=== PATIENT | male | born 1945 | race Caucasian/White ===

== ENCOUNTER 2021-11-27 14:15 | Outpatient (CLI) | payer MEDICARE, BC, SELFPAY ==
[2021-11-27 17:37] LABS: Albumin* 4.5 g/dL (3.3-5.0); Chloride* 93 mmol/L (96-114)
[2021-11-27 17:38] LABS: Potassium* 4.3 mmol/L (3.6-5.1); Sodium* 130 mmol/L (135-149)
[2021-11-27 17:40] LABS: Alanine Aminotransferase* 13 U/L (4-50); Alkaline Phosphatase* 135 U/L (40-150); Aspartate Amino Transferase* 22 U/L (12-35); Bilirubin Total* 0.9 mg/dL (0.1-1.5); Blood Urea Nitrogen* 11 mg/dL (7-30); Carbon Dioxide* 28 mmol/L (20-32); Cholesterol* 214 mg/dL (90-199); Creatinine* 0.6 mg/dL (0.5-1.5); Estimated Glomerular Filt Rate 100 ml/min; Glucose* 115 mg/dL (60-115)
[2021-11-27 17:41] LABS: Calcium* 9.6 mg/dL (8.4-10.6); HDL Cholesterol* 68 mg/dL (>=40); LDL Cholesterol Calculated 124 mg/dL (<100); Triglycerides* 108 mg/dL (40-149)
[2021-11-27 18:09] LABS: PSA Screen* 5.28 ng/mL (0.10-4.00)
== END 2021-11-27 14:16 | disposition home or self-care (01) ==
PROVIDERS: PCP Internal Medicine; Visit Provider Internal Medicine
DX: Z00.00 Encounter for general adult medical examination without abnormal findings (principal); I10 Essential (primary) hypertension; E78.5 Hyperlipidemia, unspecified; E66.9 Obesity, unspecified; Z12.5 Encounter for screening for malignant neoplasm of prostate
CPT/HCPCS: 80053; 80061; 84153

== ENCOUNTER 2022-02-11 13:00 | Outpatient (RCR) | payer MEDICARE, BC, SELFPAY ==
--- NOTE | 2022-01-14 15:36 | PT.OPEX ---
[facility] Start: 01/14/22 07:24 Freq: Status: Active Protocol: Document 01/14/22 07:24 MRATÍN (Rec: 01/14/22 15:30 MARTÍN [id number]) E-signed By Tanisha De La Cruz PT Physical Therapy Outpatient Evaluation Insurance Information Recert Due Date 04/10/22 Insurance Name Medicare B,Blue Cross/[employer] Medical Diagnosis Fall Treating Diagnosis Impaired balance, gross LE weakness, antalgic gait, limited hip and lumbar ROM Referring Jono Milton Subjective Subjective Rolando reports PT following fall dated December 09 where he was moving garbage can and tripped and fell on R buttock. He was seen by PCP Dr Ross following this and was given round of Prednisone. He notes this has significantly reduced his pain but occasional mild pain (3/10) localized to R QL region and occasionally L QL as well. Previous fall was January 2021 where again he noted tripping over object. He has previously been very active working out 3-4 times a week using bowflex, free weights, rowing machine and recumbent bike as well as balance/strengthening exercises he was given with previous bout of PT in June 2021 for balance training. He has taken a break from everything since the fall except for the bike which feels quite good to use. He is unsure what he should return to as he does not want to aggravate the back but wants to continue to maintain/ progress balance. He has been focusing more on stretches at this time. Denies N/T distally . Goals are to return to all ADLs and workout routine. PMH: Sacroiliac pain (Acute) Hypertension Hyperlipidemia Chronic obstructive pulmonary disease (Acute) Pain Comments 3/10 R>L QL region Date of Last Physician Visit 12/10/21 Current Work Status Retired Objective Other/Pertinent Objective SL balance: unable without UE support Tandem balance: able to achieve modified tandem and hold ~6 sec each foot forward LE ROM (R/L): -Hip Ext: neutral B -Hip Flx: 100/105 -Hip ER: 35/40 -Hip IR: 5/neutral LE Strength (R/L): -Hip Abd: R: 3+/5, L: 4-/5 -Hip Ext: R: 4/5, L: 4/5 -Hip Flx: R: 4-/5, L: 4-/5 TA activation fair in hooklying Increased tone/TTP B R>L QL Spring testing: - pain Standing posture: flexed hip and wide ALEX Lumbar ROM: -flex patella, pull R>L lumbar -ext neutral -R/L SB more pull on R Functional Test Performed & Score MULLINS/56 5 times sit to stand: 20.6 seconds with 50% reliance on pushing with back of legs on chair to balance Assessment Assessment/Impression Patient is a 76 year old male presenting to physical therapy for evaluation and treatment following fall with report of ongoing mild low back pain. Patient presents with limited hip ROM (flex/ER/IR), impaired postural positioning with flexed hip, proximal hip and core weakness (<4-/5), static balance deficits and reduction in MULLINS balance score from previous bout of PT in June 2021 (from 50 to 45). These impairments are limiting the patients ability to ambulate safely on all surfaces, return to exercise routine. Patient appears motivated to participate in PT and presents with good prognosis to improve mobility, strength, proprioception and return to functional activities with skilled physical therapy intervention. Primary Functional Limitations ambulate safely on all surfaces, return to exercise routine Plan of Care Rehabilitation Potential Good Physical Therapy Goals In 6 weeks (02/25/22) Pt will be able to achieve full tandem stance and hold 10 sec in order to reduce fall risk Pt will report <1/10 low back pain with all ADLs in order to demonstrate functional progress In 12 weeks (04/08/22) Pt will exhibit 8 point improvement in MULLINS Balance score (53/56) to demonstrate functional improvement and reduction in fall risk. Pt will report <1/10 low back pain and at least 4+/5 LE strength in order to return to previous exercise routine Pt will demonstrate SL balance greater than 5 sec in order to reduce fall risk Treatment Plan/Direct Interventions Gait Training,Joint Mobilization,Manual Therapy, Neuromuscular Re-ed,Self-Care/ Home Management,Therapeutic Activities,Therapeutic Exercises Frequency/Duration 1x/wk for 6 weeks with additional 4 session prn based on progress Patient Will Be Discharged From Therapy Completion of LTG(s), Independent w/HEP, Independently Progressing Evaluation Billing Untimed Code Treatment Minutes 28 Complexity Low Certification Information Initial Certification Date 01/14/22 Ending Certification Date 04/10/22 Provider Signature Shows Agreement With POC & Medical Necessity Physician Signature & Date Requested Please Sign/Date Here Physician Comment/Change : Physician NPI Number #
== END 2022-09-03 23:59 | disposition home or self-care (01) ==
PROVIDERS: PCP Internal Medicine; Visit Provider Internal Medicine
DX: R26.9 Unspecified abnormalities of gait and mobility (principal); Z51.89 Encounter for other specified aftercare
CPT/HCPCS: 97110; 97112; 97140; 97161

== ENCOUNTER 2022-06-22 13:58 | Inpatient (IN) | payer MEDICARE, BC, SELFPAY ==
[2022-06-22] VITALS (7 sets, daily range): BP systolic 132–168; BP diastolic 71–89; PULSE 85–101; RESP 14–18; TEMP 36.6–36.9; O2SAT 97–99; BMI 33.2
--- NOTE | 2022-06-22 14:11 | ED_ITS ---
HPI - Abdominal Pain General Time Seen by Provider: 14:11 Date Seen: 06/22/22 Chief Complaint: Abdominal Pain Stated Complaint: Abdominal pain, bowel blockage Time Seen by Provider: 06/22/22 14:03 Source: patient and RN notes reviewed Mode of arrival: ambulatory Limitations: no limitations History of Present Illness HPI narrative: Shobha is a 76 year old male coming into the ER ambulatory accompanied by his for concern of possible bowel obstruction. He states he has been really having to strain to go to the bathroom. Will get some small hard stool when sit ting straining. Denies any difficulty with urination until today, felt like it was more difficult to empty. He is having some lower pelvic discomfort of his abdomen. No fevers chills. His appetite has been fine. He actually ate breakfast but decided to quit eating just because he thought maybe he should. No nausea or vomiting. Notes his mom has had a history of a bowel obstruction. I did review with him that typically bowel obstructions present with decreased oral intake, nausea vomiting. He really can not remember when he last had a normal stool. He does use Metamucil daily and historically he has had bowel movement pretty quickly after breakfast. Again, cannot remember when he last had a normal bowel movement. He is unsure of when he last had a colonoscopy, believes it has been awhile. MD elicited complaint: abdominal pain Pertinent past history: constipation Related Data Home Medications Medication Instructions Recorded Confirmed atorvastatin 10 mg tablet 10 mg PO DAILY 08/13/21 06/22/22 fluticasone propionate 50 2 spray intranasal DAILY 08/13/21 06/22/22 mcg/actuation nasal spray,suspension folic acid 400 mcg tablet 1 mg PO DAILY 08/13/21 06/22/22 multivitamin (Multiple Vitamins 1 tab PO QAM 08/13/21 06/22/22 tablet) omega-3 fatty acids 500 mg capsule 500 mg PO QDAY 08/13/21 06/22/22 vitamin B complex (B 1 tab PO QDAY 08/13/21 06/22/22 Complex-Vitamin B12 tablet) zinc 50 mg tablet 50 mg PO QDAY 08/13/21 06/22/22 budesonide inhalation suspension inhalation 06/17/22 Previous Rx's Medication Instructions Recorded esomeprazole magnesium 40 mg 40 mg PO DAILY GERD #90 caps 01/01/22 capsule,delayed release tamsulosin 0.4 mg capsule 0.4 mg PO QHS BPH #90 caps 01/01/22 hydrochlorothiazide 25 mg tablet 25 mg PO DAILY #90 tabs 06/16/22 nystatin 100,000 unit/mL oral 100,000 unit buccal .TIW Thrush 06/17/22 suspension #250 mL Allergies Allergy/AdvReac Type Severity Reaction Status Date / Time Molds & Smuts Allergy Unknown Uncoded 06/17/22 13:07 Review of Systems Status of ROS Reports: 6 or more systems reviewed and unremarkable except as noted in History and below [facility] Medical History (Updated 06/22/22 @ 18:22 by Cary Baker MD) Knee pain ?M25.569 - Pain in unspecified knee (ICD-10) Allergies ?T78.40XA - Allergy, unspecified, initial encounter (ICD-10) Thrush ?B37.0 - Candidal stomatitis (ICD-10) BPH (benign prostatic hyperplasia) ?N40.0 - Benign prostatic hyperplasia without lower urinary tract symptoms (ICD-10) Sacroiliac pain ?M53.3 - Sacrococcygeal disorders, not elsewhere classified (ICD-10) Family History Father Alcohol dependence Mother No problems noted. Social History Narrative: Marital Status: Occupation: Retired Alcohol Use: Yes (wine daily) Recreational Drug Use: No Smoking Status: Former smoker Do you use any of these nicotine containing products: None Second hand tobacco smoke exposure: No How often do you have a drink containing alcohol: 4 or more times a week How many standard drinks containing alcohol do you have on a typical day: 3 or 4 How often do you have six or more drinks on one occasion: Never AUDIT-C Alcohol total score: 5 Non-prescribed substance use: denies use Exam Const: Vital Signs, click to edit/add: Vital Signs - 24 hr 06/22/22 14:02 06/22/22 17:09 Temperature 98 F Pulse Rate [Right Pulse Oximeter] 85 Respiratory Rate 14 18 Blood Pressure [Ri ght Upper Arm] 165/83 H 168/89 H Pulse Oximetry 99 98 Oxygen Delivery Me thod Room Air Room Air Documenting provider has reviewed patient's vital signs: yes Common normals: no apparent distress, oriented x3, no limitations, healthy appearing, alert and well nourished General appearance: cooperative, comfortable, well kempt and well developed Nutritional appearance: overweight HENMT: Common normals: normocephalic, head/scalp atraumatic, hearing grossly normal bilaterally, external nose normal, nasal mucous membranes and turbinates normal and moist oral mucous membranes Head and scalp: normocephalic and atraumatic Nose: external nose normal and nasal mucous membranes and turbinates normal Eye: Common normals: PERRL, EOMs intact bilaterally, conjunctivae normal and no scleral icterus Conjunctiva: conjunctiva(e) normal Pupil: PERRL Neck & C-Spine: Common normals: full ROM, no lymphadenopathy and supple Resp: Common normals: normal respiratory effort, no retractions, no use of accessory muscles and clear to auscultation bilaterally Auscultation: clear to auscultation bilaterally Cardio: Common normals: regular rate, regular rhythm, S1 normal heart sound, S2 normal heart sound, no gallops, no clicks, no murmurs and no rub Rate: regular rate Rhythm: regular rhythm Heart sounds: S1 normal and S2 normal GI: Common normals: Normal to inspection, nondistended, normoactive bowel sounds present, soft to palpation, no hepatosplenomegaly and no masses Palpation: soft and no hepatosplenomegaly Other: Mild lower abdominal pain, left lower quadrant to suprapubic in nature. Extremity: Common normals: normal to inspection and full ROM Neuro: Common normals: oriented x3 Sensorium/orientation: alert Gait (neuro): normal gait Psych: Appearance: well kempt Course Course Hospital Course: Will initiate bladder scanning and abdominal flat and upright. Patient's exam is not that clinically concerning, would like to see what a flat and upright shows as well as rule out urinary obstruction. May need to consider further laboratory evaluation and advanced imaging. Constipation certainly could be a simple diagnosis, rule out urinary obstruction. Other internal abdominal issues could be such things as an atypical presentation of diverticulitis, other intra- abdominal pathology. Reevaluation(s) Reevaluation #1: Reviewed with Shobha that there is a bit of stool buildup in his colon, does not seem to extend down into the rectum. I am doubtful that any enemas or Enemeez will help him here, stool seems too far up. He was doing some burping while I was in with him. He understands are going to proceed with blood work and a CT scan. Time: 15:06 Reevaluation #2: Apologize to patient that have not been able to get back in, CT came back with diverticulitis. Unfortunately the ERs been quite busy and he did have a critical patient transfer which I did share with them. Patient really is not passing a lot of stool below. Is still passing flatus in maybe some small pieces the stool. He is burping a lot while here though. I do feel inclined to placement hospital overnight for observation, initiate IV antibiotics for diverticulitis. Likewise his white count and C-reactive protein are elevated. Time: 18:19 Consultations Consultation #1: Spoke with hospitalist Dr. Rogers, she is accepting of his care. We will initiate IV Zosyn after discussion with her. Time: 18:21 Vital Signs Vital signs: Initial Vital Signs Temperature 98 F 06/22/22 14:02 Temperature Source Temporal Artery Scan 06/22/22 14:02 Pulse Rate 85 06/22/22 14:02 Pulse Rhythm Regular 06/22/22 14:02 Pulse Strength 3+ Normal 06/22/22 14:02 Respiratory Rate 14 06/22/22 14:02 Blood Pressure 165/83 H 06/22/22 14:02 Blood Pressure Mean 110 H 06/22/22 14:02 Blood Pressure Position Sitting 06/22/22 14:02 Pulse Oximetry 99 06/22/22 14:02 Oxygen Delivery Method Room Air 06/22/22 14:02 Vital Signs Temperature 98 F 06/22/22 14:02 Pulse Rate 85 06/22/22 14:02 Respiratory Rate 14 06/22/22 14:02 Blood Pressure 165/83 H 06/22/22 14:02 Pulse Oximetry 99 06/22/22 14:02 Oxygen Delivery Method Room Air 06/22/22 14:02 Temperature 97.8 F 06/22/22 19:15 Pulse Rate 85 06/22/22 14:02 Respiratory Rate 18 06/22/22 17:09 Blood Pressure 132/74 06/22/22 19:15 Pulse Oximetry 98 06/22/22 17:09 Oxygen Delivery Method Room Air 06/22/22 17:09 MDM - Abdominal Pain Differential Diagnosis Differential diagnosis: Likely abdominal pain, constipation and diverticulitis Lab Data Attestation: I reviewed the patient's lab results. Labs: Lab Results 06/22/22 06/22/22 Range/Units 15:10 16:08 WBC 12.15 H (4.50-11.00) K/uL RBC 4.45 (4.30-5.90) m/uL Hgb 13.5 (13.5-17.5) gm/dL Hct 38.9 (37.0-53.0) % MCV 87 (80-100) fL MCH 30 (26-34) pg MCHC 35 (32-36) gm/dL RDW Coeff of [place] 12.9 (11.5-15.5) % Plt Count 270 (140-440) K/uL Neut % (Auto) 75.5 H (42.0-72.0) % Lymph % (Auto) 10.7 L (20-44) % [place] % (Auto) 12.8 H (0.0-11.0) % Eos % (Auto) 0.6 (0.0-7.0) % Baso % (Auto) 0.2 (0.0-3.0) % Neut # (Auto) 9.20 H (1.7-7.0) K/uL Lymph # (Auto) 1.30 (0.90-2.90) K/uL [place] # (Auto) 1.60 H (0.00-0.90) K/UL Eos # (Auto) 0.10 (0.00-0.50) K/uL Baso # (Auto) 0.00 (0.00-0.30) K/uL Sodium 127 L (135-149) mmol/L Potassium 3.8 (3.6-5.1) mmol/L Chloride 92 L (96-114) mmol/L Carbon Dioxide 30 (20-32) mmol/L BUN 11 (7-30) mg/dL Creatinine 0.5 (0.5-1.5) mg/dL Estimated GFR 105 ml/min Glucose 111 (60-115) mg/dL Lactate 0.5 (0.5-1.9) mmol/L Calcium 8.4 (8.4-10.6) mg/dL Total Bilirubin 1.3 (0.1-1.5) mg/dL AST 19 (12-35) U/L ALT 17 (4-50) U/L Alkaline Phosphatase 92 (40-150) U/L C-Reactive Protein 4.6 H (0.5-1.0) mg/dL Total Protein 7.3 (6.0-8.3) g/dL Albumin 4.0 (3.3-5.0) g/dL Urine Color Yellow (Yellow) Urine Appearance Clear (Clear) Urine pH 6.5 (5.0-8.5) Ur Specific [place] 1.020 (1.000-1.030) Urine Protein Negative (Negative) Urine Glucose (UA) Negative (Negative) Urine Ketones Trace A (Negative) Urine Blood Trace-intact A (Negative) Urine Nitrite Negative (Negative) Urine Bilirubin Negative (Negative) Urine Urobilinogen 0.2 (0.2-1.0) Ur Leukocyte Esterase Negative (Negative) Urine RBC 5-10 A (0-2) Urine WBC 2-5 (0-5) Ur Squamous Epith Cells None (None-Few) Urine Bacteria None (None) Imaging Data Abdominal x-ray: Attestation: I have reviewed the pertinent imaging results. My impression: See stool in the more proximal colon, do not see anything distally. Will await Radiology over-read. Radiologist's impression: Patient: SHOBHA BEARD Facility:?[facility] Patient ID:?[id number] Site Patient ID:?[id number]. Site :?[id number] Study:?XRay Abdomen FLAT/UPRIGHT-06/22/2022 2:35:13 PM Ordering Physician:Eddi Townsend Final Report: Indication: Constipation Technique: Abdomen 2 view, 4 films Comparison: None Findings/Impression: No dilated loops of large or small intestine with a large amount of stool within the colon. Mesh overlies the pelvis. Prominent atherosclerotic calcification in the left upper quadrant. Mild degenerative disc disease lumbar spine. Dictated by Adán Gutierrez MD @ 06/22/2022 3:00:06 PM (Electronic Signature) CT scan - abdomen: Attestation: I have reviewed the pertinent imaging results. Radiologist's impression: Patient: SHOBHA BEARD Facility:?[facility] Patient ID:?[id number] Site Patient ID:?[id number]. Site :?[id number] Study:?CT Abdomen/Pelvis 99CC ISOVUE 370-06/22/2022 4:32:50 PM Ordering Physician:Eddi Townsend Final Report: INDICATION: Abdominal pain. TECHNIQUE: CT abdomen and pelvis acquired with 99 cc Isovue 370 IV contrast. COMPARISON: None. FINDINGS: Lower chest: Unremarkable. Liver: Scattered small calcified granulomas, benign. Small cyst in the left hepatic lobe. No suspicious hepatic lesion. Gallbladder and bile ducts: Possible small layering gallstones or sludge. No biliary ductal dilatation. Pancreas: Unremarkable. No mass or inflammation. Spleen: Multiple small calcified splenic granulomas. Adrenal glands: Unremarkable. No nodules. Kidneys: Unremarkable. No suspicious masses, stones, or hydronephrosis. GI tract and peritoneal space: Small/moderate hiatal hernia. No bowel obstruction. Moderate colonic stool burden with fecalization of distal small bowel contents, compatible slow transit. Colonic diverticulosis and moderate pericolonic fat stranding and colonic wall thickening centered at focally inflamed diverticula in the mid sigmoid colon, consistent with acute diverticulitis. No organized fluid collection or free intraperitoneal air. Vasculature: Abdominal aorta is normal in caliber. Mesenteric arteries are paten t. Lymph nodes: No lymphadenopathy. Pelvis: Mildly enlarged prostate Bones: Mild anterior height loss at L3, age indeterminate but likely chronic. IMPRESSION: Acute sigmoid diverticulitis. No organized fluid collection or free intraperitoneal air. Please note that all CT scans at this facility use dose modulation, iterative reconstruction, and/or weight-based dosing when appropriate to reduce radiation dose to as low as reasonably achievable. Dictated by Kashif Ahuja MD @ 06/22/2022 4:58:35 PM (Electronic Signature) Critical Care Time Critical Care Time Critical Care Time: No Discharge Plan Discharge Clinical Impression: Diverticulitis Patient Disposition: Admitted As Inpatient Condition: Unchanged
--- NOTE | 2022-06-22 14:16 | CRLHL7_ITS ---
For Patients: As a result of the Century Cures Act, medical imaging exams and procedure reports are released immediately into your electronic medical record. You may view this report before your referring provider. If you have questions, please contact your health care provider. Indication: Constipation Technique: Abdomen 2 view, 4 films Comparison: None Findings/Impression: No dilated loops of large or small intestine with a large amount of stool within the colon. Mesh overlies the pelvis. Prominent atherosclerotic calcification in the left upper quadrant. Mild degenerative disc disease lumbar spine. Dictated by Adán Gutierrez MD @ 06/22/2022 3:00:06 PM (Electronically Signed)
--- NOTE | 2022-06-22 14:50 | CRLHL7_ITS ---
For Patients: As a result of the Century Cures Act, medical imaging exams and procedure reports are released immediately into your electronic medical record. You may view this report before your referring provider. If you have questions, please contact your health care provider. INDICATION: Abdominal pain. TECHNIQUE: CT abdomen and pelvis acquired with 99 cc Isovue 370 IV contrast. COMPARISON: None. FINDINGS: Lower chest: Unremarkable. Liver: Scattered small calcified granulomas, benign. Small cyst in the left hepatic lobe. No suspicious hepatic lesion. Gallbladder and bile ducts: Possible small layering gallstones or sludge. No biliary ductal dilatation. Pancreas: Unremarkable. No mass or inflammation. Spleen: Multiple small calcified splenic granulomas. Adrenal glands: Unremarkable. No nodules. Kidneys: Unremarkable. No suspicious masses, stones, or hydronephrosis. GI tract and peritoneal space: Small/moderate hiatal hernia. No bowel obstruction. Moderate colonic stool burden with fecalization of distal small bowel contents, compatible slow transit. Colonic diverticulosis and moderate pericolonic fat stranding and colonic wall thickening centered at focally inflamed diverticula in the mid sigmoid colon, consistent with acute diverticulitis. No organized fluid collection or free intraperitoneal air. Vasculature: Abdominal aorta is normal in caliber. Mesenteric arteries are patent. Lymph nodes: No lymphadenopathy. Pelvis: Mildly enlarged prostate Bones: Mild anterior height loss at L3, age indeterminate but likely chronic. IMPRESSION: Acute sigmoid diverticulitis. No organized fluid collection or free intraperitoneal air. Please note that all CT scans at this facility use dose modulation, iterative reconstruction, and/or weight-based dosing when appropriate to reduce radiation dose to as low as reasonably achievable. Dictated by Kashif Ahuja MD @ 06/22/2022 4:58:35 PM (Electronically Signed)
[2022-06-22 15:16] LABS: Lactate* 0.5 mmol/L (0.5-1.9)
[2022-06-22 15:32] LABS: Chloride* 92 mmol/L (96-114)
[2022-06-22 15:33] LABS: Potassium* 3.8 mmol/L (3.6-5.1); Sodium* 127 mmol/L (135-149)
[2022-06-22 15:35] LABS: Alkaline Phosphatase* 92 U/L (40-150); Aspartate Amino Transferase* 19 U/L (12-35); Bilirubin Total* 1.3 mg/dL (0.1-1.5); Carbon Dioxide* 30 mmol/L (20-32); Creatinine* 0.5 mg/dL (0.5-1.5); Estimated Glomerular Filt Rate 105 ml/min; Total Protein* 7.3 g/dL (6.0-8.3)
[2022-06-22 15:36] LABS: Alanine Aminotransferase* 17 U/L (4-50); Blood Urea Nitrogen* 11 mg/dL (7-30); Calcium* 8.4 mg/dL (8.4-10.6); Glucose* 111 mg/dL (60-115)
[2022-06-22 15:38] LABS: C Reactive Protein* 4.6 mg/dL (0.5-1.0)
[2022-06-22 15:50] LABS: Basophils Percent Auto 0.2 % (0.0-3.0); Eosinophils Percent Auto 0.6 % (0.0-7.0); Hematocrit 38.9 % (37.0-53.0); Hemoglobin* 13.5 gm/dL (13.5-17.5); Immature Granulocytes Pct Auto 0.2 %; Lymphocytes Percent Auto 10.7 % (20-44); Mean Corpuscular HGB Conc 35 gm/dL (32-36); Mean Corpuscular Hemoglobin 30 pg (26-34); Mean Corpuscular Volume 87 fL (80-100); Monocytes Percent Auto 12.8 % (0.0-11.0); Neutrophils Percent Auto 75.5 % (42.0-72.0); Platelet Count* 270 K/uL (140-440); RDW Coefficient of Variation % 12.9 % (11.5-15.5); Red Blood Count 4.45 m/uL (4.30-5.90); White Blood Count* 12.15 K/uL (4.50-11.00)
[2022-06-22 15:52] LABS: Slide Review Reflex No
[2022-06-22 16:25] LABS: Appearance Urine Clear (Clear); Bilirubin Urine Negative (Negative); Blood Urine Trace-intact (Negative); Color Urine Yellow (Yellow); Glucose Urine Negative (Negative); Ketones Urine Trace (Negative); Leukocyte Esterase Urine Negative (Negative); Nitrite Urine Negative (Negative); Protein Urine Negative (Negative); Urobilinogen Urine 0.2 (0.2-1.0); pH Urine 6.5 (5.0-8.5)
[2022-06-22] MEDS: PIPERACILLIN/TAZOBACTAM 3.375 GM in 0.9 % SODIUM CHLORIDE Mini-bag 100 ML IVPB (18:47)
--- NOTE | 2022-06-22 20:37 | PM.IMHP1 ---
Hospitalist- H&P: HPI History of Present Illness Date Seen: 06/22/22 Chief complaint: Abdominal pain, bowel blockage Narrative: Rolando Salazar is a 76 year old male who presented to the emergency room today with his , initially concerned that he may have a bowel obstruction. Over the past 7 days, he is having increasing abdominal pain and difficulty having a BM. He is unsure when his actual last BM was. He has not had nausea or vomiting and was actually eating normally until this morning. His mother has a history of SBOs. No urinary changes. + burping. Last colonoscopy was in [address] Ross, normal with the exception of diverticulosis. ER course and findings: - white blood count of 12 - CT exhibits acute sigmoid diverticulitis without abscess or free air, moderate stool burden - Zosyn initiated in ED - Sodium 127 (was 130 in November 2021) Patient's history reviewed and updated below, PCP is Dr. Ross locally. Notes that he has been drinking less wine than usual over the past few days and denies history of withdrawal. Review of Systems Status of ROS: Reports: 10 or more systems reviewed and unremarkable except as noted in History and below Narrative: - no weight loss or fevers - takes a Tylenol PM nightly for sleep - Right knee pain, currently getting worked up by PCP - nocturia 1-2x/night - no skin changes - chronic cough and sinus symptoms 2/2 postnasal drip, currently working with the [facility] for this. Is on BID Budesonide nasal rinses PFSH [facility] Medical History (Updated 06/22/22 @ 20:54 by Gwen Rogers MD) Chronic cough ?R05.3 - Chronic cough (ICD-10) Kidney calculus (12/10/08) ?N20.0 - Calculus of kidney (ICD-10) Hypertension (12/10/08) ?I10 - Essential (primary) hypertension (ICD-10) Hyperlipidemia (12/10/08) ?E78.5 - Hyperlipidemia, unspecified (ICD-10) Gastroesophageal reflux (12/10/08) ?K21.9 - Gastro-esophageal reflux disease without esophagitis (ICD-10) Dupuytren's contracture of left hand ?M72.0 - Palmar fascial fibromatosis [Dupuytren] (ICD-10) Neuropathy of left ulnar nerve at wrist ?G56.22 - Lesion of ulnar nerve, left upper limb (ICD-10) Obesity with body mass index greater than 30 ?E66.9 - Obesity, unspecified (ICD-10) Laceration of scalp ?S01.01XA - Laceration without foreign body of scalp, initial encounter (ICD-10) Kidney calculus (12/10/08) ?N20.0 - Calculus of kidney (ICD-10) Knee pain ?M25.569 - Pain in unspecified knee (ICD-10) Allergies ?T78.40XA - Allergy, unspecified, initial encounter (ICD-10) Thrush ?B37.0 - Candidal stomatitis (ICD-10) BPH (benign prostatic hyperplasia) ?N40.0 - Benign prostatic hyperplasia without lower urinary tract symptoms (ICD-10) Sacroiliac pain ?M53.3 - Sacrococcygeal disorders, not elsewhere classified (ICD-10) Surgical History (Updated 06/22/22 @ 20:40 by Gwen Rogers MD) S/P trigger finger release (07/31/21) ?Z98.890 - Other specified postprocedural states (ICD-10) Family History Father Alcohol dependence Mother No problems noted. Social History (Updated 06/22/22 @ 20:52 by Gwen Rogers MD) Narrative: Patient is retired and lives with Marky - she would be medical decision maker if needed. Two adult children in [place]. Rolando requests full code status, but never wants to be alive on a machine for any extended period of time. Former smoker, quit in 1985 with an approximate 20 pack year history. Drinks 3-4 glasses of wine per night, no history of EtOH withdrawal. Smoking Status: Former smoker Do you use any of these nicotine containing products: None Second hand tobacco smoke exposure: No How often do you have a drink containing alcohol: 4 or more times a week How many standard drinks containing alcohol do you have on a typical day: 3 or 4 How often do you have six or more drinks on one occasion: Never AUDIT-C Alcohol total score: 5 Non-prescribed substance use: denies use Meds Home Medications and Allergies Home Medications Medication Instructions Recorded Confirmed Type atorvastatin 10 mg tablet 10 mg PO DAILY 08/13/21 06/22/22 History fluticasone propionate 50 2 spray intranasal DAILY 08/13/21 06/22/22 History mcg/actuation nasal spray,suspension folic acid 400 mcg tablet 1 mg PO DAILY 08/13/21 06/22/22 History multivitamin (Multiple Vitamins 1 tab PO QAM 08/13/21 06/22/22 History tablet) omega-3 fatty acids 500 mg capsule 500 mg PO QDAY 08/13/21 06/22/22 History vitamin B complex (B 1 tab PO QDAY 08/13/21 06/22/22 History Complex-Vitamin B12 tablet) zinc 50 mg tablet 50 mg PO QDAY 08/13/21 06/22/22 History budesonide inhalation suspension inhalation 06/17/22 History budesonide 0.5 mg/2 mL suspension 0.25 mg inhalation Q12H 06/22/22 06/22/22 History for nebulization Allergies Allergy/AdvReac Type Severity Reaction Status Date / Time Molds & Smuts Allergy Unknown Uncoded 06/17/22 13:07 Exam Narrative: Exam Narrative: GEN: Alert and oriented, sitting comfortably in bedside chair and nontoxic in appearance HEENT: Normal external ears, EOMIs bilaterally, no scleral icterus CV: RRR, No concerning murmurs R: LCTA bilaterally without concerning wheezing, air movement adequate Ab: Soft, nondistended, tolerates palpation Ext: wwp, trace edema bilateral ankles Skin: No concerning skin lesions or rashes on exposed skin Neuro: No focal deficits, gait not observed Psych: Appropriate Const: Vital Signs, click to edit/add: Vital Signs - 24 hr 06/22/22 14:02 06/22/22 17:09 06/22/22 19:15 Temperature 98 F 97.8 F Pulse Rate [Pulse Oximeter] Pulse Rate [Right Pulse Oximeter] 85 Respiratory Rate 14 18 Blood Pressure [Ri ght Arm] Blood Pressure [Ri ght Upper Arm] 165/83 H 168/89 H 132/74 Pulse Oximetry 99 98 Oxygen Delivery Me thod Room Air Room Air 06/22/22 19:25 Temperature 97.8 F Pulse Rate [Pulse Oximeter] 101 H Pulse Rate [Right Pulse Oximeter] Respiratory Rate 18 Blood Pressure [Ri ght Arm] 141/78 H Blood Pressure [Ri ght Upper Arm] Pulse Oximetry 98 Oxygen Delivery Me thod Room Air Hospitalist - H&P: Result Labs Labs: Short CBC 06/22/22 Range/Units 15:10 WBC 12.15 H (4.50-11.00) K/uL Hgb 13.5 (13.5-17.5) gm/dL Hct 38.9 (37.0-53.0) % Plt Count 270 (140-440) K/uL BMP 06/22/22 15:10 Sodium 127 L Potassium 3.8 Chloride 92 L Carbon Dioxide 30 BUN 11 Creatinine 0.5 Glucose 111 Calcium 8.4 Liver Function 06/22/22 Range/Units 15:10 Total Bilirubin 1.3 (0.1-1.5) mg/dL AST 19 (12-35) U/L ALT 17 (4-50) U/L Alkaline Phosphatase 92 (40-150) U/L Albumin 4.0 (3.3-5.0) g/dL Urine 06/22/22 Range/Units 16:08 Urine Color Yellow (Yellow) Urine Appearance Clear (Clear) Urine pH 6.5 (5.0-8.5) Ur Specific [place] 1.020 (1.000-1.030) Urine Protein Negative (Negative) Urine Glucose (UA) Negative (Negative) Assessment and Plan Assessment and plan (1) Diverticulitis: Problem comment: - Zosyn initiated in ED (06/22), will continue this - clear liquid diet, advance slowly Status: Acute (2) Hyponatremia: Problem comment: - likely related to acute illness, also possibly iatrogenic from HCTZ - low dose NS IV, hold HCTZ, recheck in morning Status: Acute (3) Chronic cough: Problem comment: - with sinusitis, sees Allergy at [place] - currently treating with BID Budesonide sinus rinses Status: Acute (4) Hypertension: Status: Acute (5) Hyperlipidemia: Status: Acute (6) BPH (benign prostatic hyperplasia): Problem comment: - continue Tamsulosin Status: Acute Plan - antibiotics per above - consider change to antihypertensive regimen given hyponatremia - SCDs and ambulation for ppx - advance diet as tolerated - Home with when + GI motility and improved clinical course, likely 1-2 days
[2022-06-22] MEDS: 0.9 % SODIUM CHLORIDE 1000 ml 1,000 ML 125 ML IV (21:13)
[2022-06-22] MEDS: TAMSULOSIN HCL 0.4 MG CAPSULE PO (21:13)
[2022-06-22] MEDS: SODIUM CHLORIDE 0.9 % (FLUSH) 10 ML SYRINGE 5 ML IVF (21:14)
[2022-06-22] MEDS: BUDESONIDE 0.5 MG/2ML NEB 0.25 MG NEB (21:44)
[2022-06-23] MEDS: PIPERACILLIN/TAZOBACTAM 3.375 GM in 0.9 % SODIUM CHLORIDE Mini-bag 100 ML IVPB ×2 (01:25→06:40)
[2022-06-23 03:00] VITALS: BP 109/73; PULSE 84; RESP 16; TEMP 36.9; O2SAT 95
[2022-06-23] MEDS: 0.9 % SODIUM CHLORIDE 1000 ml 1,000 ML 125 ML IV (06:01)
--- NOTE | 2022-06-23 07:03 | PC.NURSE ---
Pt alert and oriented x3. Afebrile. Pt denied pain, SOB, chest pain, and N/V. Pt lung sounds are clear, pt has an intermittent productive cough, cough is managed with home medications, MD aware and approved. Pt has active bowel sounds, is passing gas and eructating. Pt is up SBA with gait belt, voiding, tolerating a liquid?diet. Pt slept intermittently throughout night.?
[2022-06-23 07:18] LABS: Basophils Percent Auto 0.1 % (0.0-3.0); Eosinophils Percent Auto 0.3 % (0.0-7.0); Hematocrit 37.7 % (37.0-53.0); Hemoglobin* 12.8 gm/dL (13.5-17.5); Immature Granulocytes Pct Auto 0.2 %; Lymphocytes Percent Auto 10.5 % (20-44); Mean Corpuscular HGB Conc 34 gm/dL (32-36); Mean Corpuscular Hemoglobin 30 pg (26-34); Mean Corpuscular Volume 88 fL (80-100); Monocytes Percent Auto 13.2 % (0.0-11.0); Neutrophils Percent Auto 75.7 % (42.0-72.0); Platelet Count* 247 K/uL (140-440); Red Blood Count 4.29 m/uL (4.30-5.90); White Blood Count* 12.62 K/uL (4.50-11.00)
[2022-06-23 07:21] LABS: Slide Review Reflex No
[2022-06-23 07:25] VITALS: BP 137/63; PULSE 81; RESP 18; TEMP 36.9; O2SAT 96
[2022-06-23 07:44] LABS: Albumin* 3.5 g/dL (3.3-5.0); Chloride* 96 mmol/L (96-114); Sodium* 130 mmol/L (135-149)
[2022-06-23 07:46] LABS: Creatinine* 0.5 mg/dL (0.5-1.5); Est. Creatinine Clearance* 65.89; Estimated Glomerular Filt Rate 105 ml/min
[2022-06-23 07:47] LABS: Alkaline Phosphatase* 85 U/L (40-150); Aspartate Amino Transferase* 17 U/L (12-35); Bilirubin Total* 1.3 mg/dL (0.1-1.5); Blood Urea Nitrogen* 10 mg/dL (7-30); Carbon Dioxide* 28 mmol/L (20-32); Total Protein* 6.7 g/dL (6.0-8.3)
[2022-06-23 07:48] LABS: Alanine Aminotransferase* 15 U/L (4-50); Glucose* 108 mg/dL (60-115)
[2022-06-23 07:50] LABS: C Reactive Protein* 6.5 mg/dL (0.5-1.0)
[2022-06-23] MEDS: BUDESONIDE 0.5 MG/2ML NEB 0.25 MG NEB (08:58)
[2022-06-23] MEDS: OMEPRAZOLE 20 MG CAPSULE DR 40 MG PO (09:38)
[2022-06-23] MEDS: FLUTICASONE PROPIONATE NASAL 2 SPRAY NOSTRIL-B (09:42)
--- NOTE | 2022-06-23 09:47 | P.DS_ITS ---
DS: Providers Provider Date Seen: 06/23/22 Date of admission: 06/22/22 20:29 Primary care physician: Jono Ross MD Admitting Clinician: Gwen Rogers MD Consults: Nutrition Attending Physician on discharge: Gwen Rogers MD Date of Discharge: 06/23/22 DS: Diagnosis Discharge Diagnosis (1) Diverticulitis: Status: Acute Problem details: - Zosyn initiated in ED (06/22), will discharge home on oral Amoxicillin - clear liquid diet with + return of bowel function on hospital day 1 (2) Hyponatremia: Status: Acute Problem details: - likely related to acute illness/decreased intake + iatrogenic from HCTZ - low dose NS IV, Na back to baseline of 130 on day of discharge - f/u with PCP for medication mgmt (3) Chronic cough: Status: Acute Problem details: - with sinusitis, sees Allergy at [place] - currently treating with BID Budesonide sinus rinses (4) Hypertension: Status: Acute (5) Hyperlipidemia: Status: Acute (6) BPH (benign prostatic hyperplasia): Status: Acute Problem details: - continue Tamsulosin DS: Summary Hospital Course Hospital Course: Pleasant 76-year-old male, admitted to the hospital on 06/22 for diverticulitis. Patient was treated with IV Zosyn and significantly improved, requesting discharge home on hospital day 1. Bowel function returned and patient was seen by computer publisher. On admission, found to have mild hyponatremia (outpatient baseline sodium of 130) - likely combination of acute illness and hydrochlorothiazide. Recommend reviewing antihypertensives with PCP upon hospital discharge follow- up. The rest of patient's comorbidities remained stable per above. Patient was medically appropriate for discharge home with on oral Augmentin 06/23/22. Status at Discharge Functional status at discharge: independent ambulation Overall status at discharge: patient is progressing back to baseline Time Spent with Patient Time attestation: Total time spent providing and/or coordinating discharge services: Time spent: Greater than 30 minutes Specific discharge activities: Medication reconciliation, care coordination with multidisciplinary team, patient Education Exam Narrative: Exam Narrative: GEN: Alert and oriented, nontoxic, sitting comfortably in bedside chair HEENT: EOMIs bilaterally, no scleral icterus CV: RRR, No concerning murmurs R: LCTA bilaterally without concerning wheezing, air movement adequate Abdomen: Soft, nondistended, nontender. Bowel sounds noted in all 4 quadrants and patient tolerates exam well Ext: wwp, no concerning edema Skin: No concerning skin lesions or rashes on exposed skin Neuro: Nonfocal Psych: Appropriate Const: Vital Signs, click to edit/add: Vital Signs - 24 hr 06/22/22 14:02 06/22/22 17:09 06/22/22 19:15 Temperature 98 F 97.8 F Pulse Rate [Pulse Oximeter] Pulse Rate [Right Pulse Oximeter] 85 Respiratory Rate 14 18 Blood Pressure [Ri ght Arm] Blood Pressure [Ri ght Upper Arm] 165/83 H 168/89 H 132/74 Pulse Oximetry 99 98 Oxygen Delivery Me thod Room Air Room Air 06/22/22 19:25 06/22/22 19:48 06/22/22 22:34 Temperature 97.8 F Pulse Rate [Pulse Oximeter] 101 H 101 H Pulse Rate [Right Pulse Oximeter] Respiratory Rate 18 18 18 Blood Pressure [Ri ght Arm] 141/78 H Blood Pressure [Ri ght Upper Arm] Pulse Oximetry 98 98 Oxygen Delivery Me thod Room Air Room Air 06/22/22 22:34 06/22/22 22:55 06/23/22 03:00 Temperature 98.5 F 98.4 F Pulse Rate [Pulse Oximeter] 94 84 Pulse Rate [Right Pulse Oximeter] Respiratory Rate 18 16 16 Blood Pressure [Ri ght Arm] 151/71 H 109/73 Blood Pressure [Ri ght Upper Arm] Pulse Oximetry 98 97 95 Oxygen Delivery Me thod Room Air Room Air Room Air 06/23/22 07:25 06/23/22 07:25 Temperature 98.4 F Pulse Rate [Pulse Oximeter] 81 Pulse Rate [Right Pulse Oximeter] Respiratory Rate 18 18 Blood Pressure [Ri ght Arm] 137/63 Blood Pressure [Ri ght Upper Arm] Pulse Oximetry 96 96 Oxygen Delivery Me thod Room Air Room Air DS: Data Data Completed and Pending Labs on day of discharge: Labs from last 24 hours 06/23/22 06/22/22 06/22/22 05:45 16:08 15:10 WBC 12.62 H 12.15 H RBC 4.29 L 4.45 Hgb 12.8 L 13.5 Hct 37.7 38.9 MCV 88 87 MCH 30 30 MCHC 34 35 RDW Coeff of [place] 13.0 12.9 Plt Count 247 270 Neut % (Auto) 75.7 H 75.5 H Lymph % (Auto) 10.5 L 10.7 L [place] % (Auto) 13.2 H 12.8 H Eos % (Auto) 0.3 0.6 Baso % (Auto) 0.1 0.2 Neut # (Auto) 9.60 H 9.20 H Lymph # (Auto) 1.30 1.30 [place] # (Auto) 1.70 H 1.60 H Eos # (Auto) 0.00 0.10 Baso # (Auto) 0.00 0.00 Sodium 130 L 127 L Potassium 4.0 3.8 Chloride 96 92 L Carbon Dioxide 28 30 BUN 10 11 Creatinine 0.5 0.5 Estimated Creat Clear 65.89 Estimated GFR 105 105 Glucose 108 111 Lactate 0.5 Calcium 8.0 L 8.4 Total Bilirubin 1.3 1.3 AST 17 19 ALT 15 17 Alkaline Phosphatase 85 92 C-Reactive Protein 6.5 H 4.6 H Total Protein 6.7 7.3 Albumin 3.5 4.0 Urine Color Yellow Urine Appearance Clear Urine pH 6.5 Ur Specific [place] 1.020 Urine Protein Negative Urine Glucose (UA) Negative Urine Ketones Trace A Urine Blood Trace-intact A Urine Nitrite Negative Urine Bilirubin Negative Urine Urobilinogen 0.2 Ur Leukocyte Esterase Negative Urine RBC 5-10 A Urine WBC 2-5 Ur Squamous Epith Cells None Urine Bacteria None Discharge Plan Discharge Disposition: Home, Self-Care Date of Admission: 06/22/22 20:29 Attending Provider on Discharge: Gwen Rogers Primary Care Provider: Jono Ross Condition: Improved Anticipated Discharge Date/Time: 06/23/22 09:40 Discharge Medications: New amoxicillin-pot clavulanate 875-125 mg tablet 1 tab PO BID Qty: 14 0RF Continued fluticasone propionate 50 mcg/actuation spray,suspension 2 spray intranasal DAILY vitamin B complex [B Complex-Vitamin B12] Tablet 1 tab PO QDAY omega-3 fatty acids 500 mg capsule 500 mg PO QDAY zinc 50 mg tablet 50 mg PO QDAY multivitamin [Multiple Vitamins] Tablet 1 tab PO QAM atorvastatin 10 mg tablet 10 mg PO DAILY folic acid 400 mcg tablet 1 mg PO DAILY budesonide 0.5 mg/2 mL suspension for nebulization 0.25 mg irrigation Q12H Patient Comments: using as a nasal rinse BID diphenhydramine-acetaminophen [Tylenol PM Extra Strength] 25-500 mg tablet 1 tab PO QHS PRN esomeprazole magnesium 40 mg capsule,delayed release(DR/EC) 40 mg PO DAILY Qty: 90 3RF tamsulosin 0.4 mg capsule 0.4 mg PO QHS Qty: 90 3RF hydrochlorothiazide 25 mg tablet 25 mg PO DAILY Qty: 90 1RF Discontinued nystatin 100,000 unit/mL suspension 5 ml PO QID Discharge Orders: Discharge Order (Routine); Ordered 06/23/22 Ordered By: Gwen Rogers Patient Education: Diverticulitis (DC) Additional Instructions: Antibiotics at [facility] - you should start those this morning and take twice/day with food. Add in a probiotic daily (yogurt, sauerkraut, kombucha, etc). See Dr. Ross as scheduled in followup. Activity Level: Activity as Tolerated Discharge Diet: Regular Follow Up Appointments: Jono Ross MD [Primary Care Provider] - (5-7 days for hospital discharge f/u for diverticulitis + med check, hyponatremia.) Forms: [facility] Info Instructions
--- NOTE | 2022-06-23 10:10 | NUTR.NU ---
GAMALIEL with MD consult for diverticulitis. RDN visited with patient and (Marky, designated caregiver) whom reported a good diet at home. He eats whole grain bread and a lot of fruits and vegetables, coffee, and 3-4 glasses of wine at night. Patient and agreed to diet education. Patient was provided diet education on a low fiber diet. Discussed foods to include and foods to avoid until MD recommends advancing to high fiber diet. Education also provided on gradually increasing fiber and following a high fiber diet (25-35 grams/day) long-term.?Verbal and written information as well as sample menus provided on both diets from AND NCM.?Patient verbalized understanding.?RDN's contact information was provided and patient was encouraged to contact RDN with questions.
[2022-06-23 10:14] VITALS: RESP 18; TEMP 36.9
--- NOTE | 2022-06-23 13:44 | PC.NURSE ---
shift note: pt up with sba for transfers. IV x2 removed intact (lt AC and Rt hand). Pt denies pain. Pt has hyperactive BS x4. pt states he passed loose moderate BM. pt tolerating clrs and yogurt. vss stable. pt afeb. Reviewed dc instructions and copies sent with pt at dc. Belongings sent with pt at dc.
== END 2022-06-23 11:00 | disposition home or self-care (01) | DRG 392 ==
LOC: ED 18:22 → MEDSURG 18:39
PROVIDERS: Admitting Provider Family Medicine; Emergency Provider Family Medicine; PCP Internal Medicine; Visit Provider Family Medicine
DX: K57.32 Diverticulitis of large intestine without perforation or abscess without bleeding (principal); E87.1 Hypo-osmolality and hyponatremia; N40.0 Benign prostatic hyperplasia without lower urinary tract symptoms; M25.561 Pain in right knee; K21.9 Gastro-esophageal reflux disease without esophagitis; I10 Essential (primary) hypertension; E66.9 Obesity, unspecified; Z68.33 Body mass index [BMI] 33.0-33.9, adult; M53.3 Sacrococcygeal disorders, not elsewhere classified; E78.5 Hyperlipidemia, unspecified; R05.3 Chronic cough
CPT/HCPCS: 36415; 74019; 74177; 80053; 81001; 83605; 85025; 86140; 94640; 97116; 97162; 99284; 99285; A9270; J2543; J7030; J7626; Q9967

== ENCOUNTER 2022-11-17 14:00 | Outpatient (CLI) | payer MEDICARE, BC, SELFPAY | END 2022-11-17 14:01 | disposition home or self-care (01) | PROVIDERS: PCP Internal Medicine; Visit Provider Internal Medicine | DX: R63.4 Abnormal weight loss (principal) | CPT/HCPCS: 80053; 84153; 84443 ==

== ENCOUNTER 2022-11-26 13:05 | Outpatient (CLI) | payer MEDICARE, BC, SELFPAY | END 2022-11-26 13:06 | disposition home or self-care (01) | LOC: NFLDREF 11-30 08:04 | PROVIDERS: PCP Internal Medicine; Referring Provider Internal Medicine | DX: Z00.00 Encounter for general adult medical examination without abnormal findings (principal); E78.5 Hyperlipidemia, unspecified; R63.4 Abnormal weight loss | CPT/HCPCS: 99001 ==

== ENCOUNTER 2022-12-07 11:15 | Outpatient (RCR) | payer MEDICARE, BC, SELFPAY ==
--- NOTE | 2022-11-09 21:23 | PT.OPEX ---
PT [place] Outpatient Eval PT [facility] Outpatient Eval Start: 11/09/22 13:02 Freq: Status: Active Protocol: Document 11/09/22 13:02 AMS (Rec: 11/09/22 17:44 AMS [id number]) E-signed By Jane Heredia PT Physical Therapy Outpatient Evaluation Insurance Information Recert Due Date 02/02/23 Insurance Name Medicare B,Blue Cross/[employer] Medical Diagnosis Right degenerative meniscal tear Right knee pain Bilateral knee arthritis Treating Diagnosis Right/left knee pain Impaired gait Muscle weakness Impaired balance Referring MD Dr. Jono Ross Subjective Subjective Tadeo is a new patient in my office today. He is a pleasant 76yr old male. Previous Dr. Ballard patient. Referred to me by Dr. Ross. Presents with bilateral knee pain. Presents with a cane today for ambulation assistance. Presents with his today. He states he is having pain in both knees. The pain is of the anterior knee. The left knee feels exactly like the right knee. He is hopefully for arthroscopic surgery today . The pain is a dull ache that is constant with intermittent sharp pains. The pain is worse with running, prolonged walking, stairs. The patient has tried ice, Tylenol/oral NSAIDs, rest, activity modification, cane for ambulation assistance all with minimal and non-lasting relief. He received a cortisone injection on 2022. -Dr. Paula, 07/28/22 Pt reports with , Marky, to physical therapy with chronic history of right > left anterior knee pain. This started years ago without any known injury and came on gradually. Imaging showed degenerative meniscal tear on right and bilateral knee arthritis. He received a second cortisone injection bilaterally on 10/14/22, which was helpful for the right knee pain especially, but not entirely resolving his symptoms. He localizes the pain to the bilateral anterior knees, describing it as sharp at times on stairs, otherwise dull ache. Functional limitations/aggravating factors include prolonged walking, going upstairs > downstairs, and lifting. He has been an avid weightlifter and runner most of his life. He has lost weight over the last year, which has helped the symptoms. Prior to the injection, he was having pain with sitting, too. Easing factors include laying down and taking hot showers. Current exercise includes rowing machine, Boflex machine occasionally, and recumbent bike 1-2x/week 20 minutes. Previously, he was doing recumbent bike 5x/week for 60- 75 minutes and walking 5-15 miles per day. He has stopped doing this since a few months ago, as he wasn't sure what was recommended, and he no longer strength trains. Does have a [facility]. Goals: performing stairs without pain, walking on uneven terrain/mowing lawn, walking longer distances, steering his snowblower, and improving strength. Usually walks with a cane for balance when outside the house, although did not bring it today. He is concerned of falling, although has not had any falls in last 12 months. Denies numbness or tingling. He does not describe any catching or locking. No swelling that he has noticed. Pain Comments 4/10 at worst, 1/10 current in bilateral anterior knee Date of Last Physician Visit 10/14/22 Current Work Status Retired Preferred Name Rolando Precautions Treatment Precautions/Contraindications Hypertension, hyperlipidemia Objective Other/Pertinent Objective IMAGING ON RIGHT: Minimal degenerative fraying/ tearing involving the undersurface of the posterior horn medial meniscus with mild ill-defined degenerative fraying/tearing involving the junction of the posterior horn and posterior root lateral meniscus -Dr. Paula, . MRI from 06/26/22 GAIT ASSESSMENT: Ambulates with widened ALEX, non-antalgic gait with shuffling nature due to lack of heel strike. Mild to moderate postural sway . No gait aid OBSERVATION: Swelling: None noted FUNCTIONAL MOBILITY Double leg squat: To 70 deg, no increase in pain 30-sec STS: 7 BALANCE Narrow stance: 10+ seconds Narrow stance EC: 10+ sec, mild postural sway Semi-tandem stance: 10 seconds B, mild to moderate postural sway Tandem stance: Unable B SL Stance: Unable B KNEE ROM R: 0-0-130*, mild pain end range flexion L: 0-0-130 HIP ROM All WFL, except 0 deg of hip extension B due to tight hip flexors LLE MMT: Hip flexion: R 5/5 L 5/5 Hip abduction: Unable to isolate due to lack of hip extension ROM Hip extension: Able to perform DL bridge w/ increased effort Knee flexion: R 5/5 L 5/5 Knee extension: R 5/5 L 5/5 END RANGE QUAD CONTROL Straight leg raise: No quad lag SPECIAL TESTS Knee Ligamentous: -Varus 0: - -Varus 30: - -Valgus 0: - -Valgus 30: - -Lachmans: - Knee Meniscus: -Deep Knee Bend: + right -Knee Hyperextension: - -Girish?s: - -Joint Line Palpation: + right and left, more pain on right JOINT MOBILITY/PALPATION Mild TTP over medial joint line right > left, no other TTP TX: Patient was educated on anatomy, physiology as it relates to current condition and HEP with use of handout/ [employer] [place]. Patient verbalizes understanding and agrees with POC/goals. Recommended graded return to walking per soreness guidelines Patient was instructed in the following exercises to improve strength, tissue tolerance, and/or mobility: Access Code: [email or web address] URL: [email or web address] Date: 11/09/2022 Prepared by: Jane Heredia Exercises - Supine Bridge - 1 x daily - 4 x weekly - 2 sets - 10 reps - Standing Romberg to 1/2 Tandem Stance - 1 x daily - 7 x weekly - 3 sets - 30-60 seconds hold - Sit to Stand Without Arm Support - 1 x daily - 4 x weekly - 2 sets - 8 reps -Also trialed step ups on 6 stair x 10 B, requires railing for safety -Instructed in standing and supine hip flexor stretch, although limited by low back pain Functional Test Performed & Score LEFS: pt taking home and will complete Assessment Assessment/Impression Pt is a 76 -year-old male who presents with concerns of chronic right > left knee pain and low severity and irritability. Signs and symptoms are likely indicating / consistent with osteoarthritis/degenerative medial meniscus tear on right per imaging. On exam, patient also demonstrates notable objective findings including full knee ROM, pain with end- range flexion on right, limited hip extension ROM due to increased hip flexor tone bilaterally, impaired balance, pain with medial joint line palpation, and decreased hip/ quad strength, leading to difficulties with walking longer distances, standing, running, performing stairs (up > down), and lifting. Per 30 sec STS, pt demonstrates decreased lower extremity strength bilaterally and is at increased fall risk. Recommended pt utilize cane for improved balance and gait stability. Patient is appropriate for skilled physical therapy services to address the above deficits. Pt was agreeable with plan of care and goals established. Primary Functional Limitations walking longer distances, standing, running, performing stairs (up> down), and lifting . Plan of Care Rehabilitation Potential Good Physical Therapy Goals In 2 sessions: Pt will be independent with HEP for improved self- management of symptoms. In 8 sessions: Pt will demonstrate <2/10 pain with all activities for improved functional mobility/ ability to perform ADLs without pain. Pt will return to walking >3 miles with <2/10 knee pain. Pt will improve 30 sec STS by 4 repetitions for improved lower extremity strength and decreased fall risk. Coordination/Communication With Referral Source Treatment Plan/Direct Interventions Electrical Stimulation,Gait Training,Joint Mobilization, Manual Therapy,Neuromuscular Re-ed,Self-Care/Home Management,Therapeutic Activities,Therapeutic Exercises Frequency/Duration 1x/week for 8 weeks Patient Will Be Discharged From Therapy Completion of LTG(s), Independent w/HEP, Independently Progressing Evaluation Billing Untimed Code Treatment Minutes 30 Complexity Moderate Certification Information Initial Certification Date 11/09/22 Ending Certification Date 02/02/23 Provider Signature Shows Agreement With POC & Medical Necessity Physician Signature & Date Requested Please Sign/Date Here Physician Comment/Change : Physician NPI Number #
== END 2023-02-22 12:34 | disposition home or self-care (01) ==
PROVIDERS: PCP Internal Medicine; Visit Provider Internal Medicine
DX: M17.0 Bilateral primary osteoarthritis of knee (principal); M23.306 Other meniscus derangements, unspecified meniscus, right knee; M25.561 Pain in right knee; M25.562 Pain in left knee; R26.81 Unsteadiness on feet; R26.9 Unspecified abnormalities of gait and mobility; M62.81 Muscle weakness (generalized); Z51.89 Encounter for other specified aftercare
CPT/HCPCS: 80061; 97110; 97112; 97162

== ENCOUNTER 2023-01-15 12:37 | Outpatient (CLI) | payer MEDICARE, BC, SELFPAY ==
--- NOTE | 2023-01-15 13:51 | W.ANESCHARGE ---
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
--- NOTE | 2023-01-15 14:48 | P.ANES_ITS ---
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
== END 2023-01-15 12:38 | disposition home or self-care (01) ==
LOC: OP CLINIC 12:37
PROVIDERS: PCP Internal Medicine; Visit Provider Internal Medicine
DX: R19.8 Other specified symptoms and signs involving the digestive system and abdomen (principal); K21.9 Gastro-esophageal reflux disease without esophagitis; K57.30 Diverticulosis of large intestine without perforation or abscess without bleeding; K64.4 Residual hemorrhoidal skin tags; K64.8 Other hemorrhoids; K63.5 Polyp of colon; K92.1 Melena
CPT/HCPCS: 00813; 43239; 45380; 88305; 99100; J2704; J3490

== ENCOUNTER 2023-03-12 09:32 | Emergency (ER) | payer MEDICARE, BC, SELFPAY ==
[2023-03-12 09:36] VITALS: BP 150/81; PULSE 103; RESP 18; TEMP 37; O2SAT 96; BMI 27.8
--- NOTE | 2023-03-12 09:45 | ED_ITS ---
HPI - General Adult General Time Seen by Provider: 09:45 Date Seen: 03/12/23 Chief complaint: Constipation Stated complaint: hurts to have a bowel movement Time Seen by Provider: 03/12/23 09:45 Source: patient and RN notes reviewed Mode of arrival: ambulatory Limitations: no limitations History of Present Illness HPI narrative: This 77-year-old male his ambulatory into the ED with complaint of pain today. He attempted to have a bowel movement and was having pain. He had a colonoscopy about 5 weeks ago, states it was normal. He admits that he has stools that go between soft not necessarily formed, would not say there were diarrheal though. Have times where he can go. He has been using both MiraLax and Imodium at home. He is burping a lot, he and his states this is not new, this is been going on for ages per his . He sometimes will have fecal incontinence, is wearing depends. He relays to me that his bowel changes with the fecal incontinence, them sometimes being softer are problematic for him. He denies any fevers or chills. Have reviewed Dr. Ross's note from December of 2022 with complaint of stool changes. Have reviewed his colonoscopy which was done 01/15/2023, showed hemorrhoids on perianal exam, he did have a 2 mm polyp and diverticuli. This polyp was found to be a tubular adenoma without dysplasia. Related Data Home Medications Medication Instructions Recorded Confirmed folic acid 400 mcg tablet 1 mg PO DAILY 08/13/21 01/05/23 multivitamin (Multiple Vitamins 1 tab PO QAM 08/13/21 01/05/23 tablet) omega-3 fatty acids 500 mg capsule 500 mg PO QDAY 08/13/21 01/05/23 vitamin B complex (B 1 tab PO QDAY 08/13/21 01/05/23 Complex-Vitamin B12 tablet) zinc 50 mg tablet 50 mg PO QDAY 08/13/21 01/05/23 budesonide 0.5 mg/2 mL suspension 0.25 mg irrigation Q12H 06/22/22 01/05/23 for nebulization diphenhydramine 25 1 tab PO QHS PRN 06/23/22 01/05/23 mg-acetaminophen 500 mg tablet (Tylenol PM Extra Strength) fluticasone propionate 50 2 spray intranasal DAILY PRN 07/28/22 01/05/23 mcg/actuation nasal spray,suspension Previous Rx's Medication Instructions Recorded atorvastatin 10 mg tablet 10 mg PO DAILY Hyperlipidemia #90 12/09/22 tabs esomeprazole magnesium 40 mg 40 mg PO DAILY GERD #90 caps 12/09/22 capsule,delayed release hydrochlorothiazide 25 mg tablet 25 mg PO DAILY #90 tabs 12/09/22 tamsulosin 0.4 mg capsule 0.4 mg PO QHS BPH #90 caps 12/09/22 hydrocortisone 2.5 % topical cream 1 applic topical QDAY Rash #30 12/29/22 grams peg 3350-electrolytes 236 240 ml PO ONCE #4,000 mL 01/12/23 gram-22.74 gram-6.74 gram-5.86 gram solution (Golytely) Allergies Allergy/AdvReac Type Severity Reaction Status Date / Time Molds & Smuts Allergy Unknown Uncoded 01/05/23 15:05 Review of Systems Narrative: As per HPI. [facility] Medical History Change in bowel function ?R19.8 - Other specified symptoms and signs involving the digestive system and abdomen (ICD-10) Rash ?R21 - Rash and other nonspecific skin eruption (ICD-10) Hyperlipidemia (12/10/08) ?E78.5 - Hyperlipidemia, unspecified (ICD-10) Weight decrease ?R63.4 - Abnormal weight loss (ICD-10) Diverticulitis ?K57.92 - Diverticulitis of intestine, part unspecified, without perforation or abscess without bleeding (ICD-10) Acute meniscal tear of knee ?S83.209A - Unspecified tear of unspecified meniscus, current injury, unspecified knee, initial encounter (ICD-10) Chronic cough ?R05.3 - Chronic cough (ICD-10) Kidney calculus (12/10/08) ?N20.0 - Calculus of kidney (ICD-10) Hypertension (12/10/08) ?I10 - Essential (primary) hypertension (ICD-10) Gastroesophageal reflux (12/10/08) ?K21.9 - Gastro-esophageal reflux disease without esophagitis (ICD-10) Dupuytren's contracture of left hand ?M72.0 - Palmar fascial fibromatosis [Dupuytren] (ICD-10) Neuropathy of left ulnar nerve at wrist ?G56.22 - Lesion of ulnar nerve, left upper limb (ICD-10) Obesity with body mass index greater than 30 ?E66.9 - Obesity, unspecified (ICD-10) Laceration of scalp ?S01.01XA - Laceration without foreign body of scalp, initial encounter (ICD- 10) Kidney calculus (12/10/08) ?N20.0 - Calculus of kidney (ICD-10) Knee pain ?M25.569 - Pain in unspecified knee (ICD-10) Allergies ?T78.40XA - Allergy, unspecified, initial encounter (ICD-10) Thrush ?B37.0 - Candidal stomatitis (ICD-10) BPH (benign prostatic hyperplasia) ?N40.0 - Benign prostatic hyperplasia without lower urinary tract symptoms (ICD-10) Sacroiliac pain ?M53.3 - Sacrococcygeal disorders, not elsewhere classified (ICD-10) Surgical History History of ear surgery (~1970) ?Z98.890 - Other specified postprocedural states (ICD-10) H/O cataract extraction ?Z98.49 - Cataract extraction status, unspecified eye (ICD-10) Status post bilateral hernia repair ?Z98.890 - Other specified postprocedural states (ICD-10) ?Z87.19 - Personal history of other diseases of the digestive system (ICD-10) S/P trigger finger release (07/31/21) ?Z98.890 - Other specified postprocedural states (ICD-10) Family History Father Alcohol dependence Mother No problems noted. Social History Narrative: Patient is retired and lives with Marky - she would be medical decision maker if needed. Two adult children in [place]. Shobha requests full code status, but never wants to be alive on a machine for any extended period of time. Former smoker, quit in 1985 with an approximate 20 pack year history. Drinks 3-4 glasses of wine per night, no history of EtOH withdrawal. Smoking Status: Former smoker Do you use any of these nicotine containing products: None Second hand tobacco smoke exposure: No How often do you have a drink containing alcohol: 4 or more times a week Alcohol type: wine How many standard drinks containing alcohol do you have on a typical day: 3 or 4 How often do you have six or more drinks on one occasion: Never AUDIT-C Alcohol total score: 5 Non-prescribed substance use: denies use Caffeine: Yes Little interest or pleasure in doing things: not at all Feeling down, depressed, or hopeless: not at all service: No Exam Const: Vital Signs, click to edit/add: Vital Signs - 24 hr 03/12/23 09:36 Temperature 98.6 F Pulse Rate [Pulse Oximeter] 103 H Respiratory Rate 18 Blood Pressure [Ri ght Upper Arm] 150/81 H Pulse Oximetry 96 Oxygen Delivery Me thod Room Air Shobha is a 77-year-old male that is alert, interactive, no apparent distress. He does have a lot of burping noted. Sclera clear, conjugate gaze, symmetrical facial function, speech normal. Neck is supple, no masses. Lungs are clear, good air entry, no wheezing or crackles. CV regular rate and rhythm, no significant murmur, normal S1-S2, no S3-S4. Abdomen is flat, not distended, does have pretty active bowel sounds but has no palpable organomegaly, no rebound or guarding, no masses noted. He has stool smearing in the buttocks, do not see any significant thrombosed hemorrhoids, no tender areas externally. See no bleeding. The stool is green to brownish. Documenting provider has reviewed patient's vital signs: yes Course Course ED Course: Will start on a flat and upright with this patient to see is stool burden. Have reviewed with he and his that if he is having softer stools, irregular stool habits, this is probably not something that I am going to be able to fix out of the ED. They are wondering about gastroenterology, reviewed with them that they would need to get the referral from his primary. We can check to make sure he does not have any obstructive bowel changes, any significant constipation with stool burden on his imaging. Also will get some baseline labs, his last chemistries in [facility] were in November 2022. Will make sure his electrolytes are not significantly off. Have reviewed with them that Imodium will help with diarrhea, do not recommend that he be taking this at this point. Reevaluation(s) Time of Reevaluation #1: 10:47 Reevaluation #1: Have reviewed with patient that on my preliminary review of his x-ray do see stool burden but I do not see any evidence of obstruction. Were going to give him an Enemeez Plus here, see if that will help him. Time of Reevaluation #2: 11:25 Reevaluation #2: Patient is requesting discharge to be able to defecate at home. Will get his discharge ready, try to get him own as quickly as possible. Vital Signs Vital signs: Initial Vital Signs Temperature 98.6 F 03/12/23 09:36 Temperature Source Temporal Artery Scan 03/12/23 09:36 Pulse Rate 103 H 03/12/23 09:36 Respiratory Rate 18 03/12/23 09:36 Blood Pressure 150/81 H 03/12/23 09:36 Blood Pressure Mean 104 03/12/23 09:36 Blood Pressure Position Supine 03/12/23 09:36 Pulse Oximetry 96 03/12/23 09:36 Oxygen Delivery Method Room Air 03/12/23 09:36 Vital Signs Temperature 98.6 F 03/12/23 09:36 Pulse Rate 103 H 03/12/23 09:36 Respiratory Rate 18 03/12/23 09:36 Blood Pressure 150/81 H 03/12/23 09:36 Pulse Oximetry 96 03/12/23 09:36 Oxygen Delivery Method Room Air 03/12/23 09:36 Temperature 98.6 F 03/12/23 09:36 Pulse Rate 103 H 03/12/23 09:36 Respiratory Rate 18 03/12/23 09:36 Blood Pressure 150/81 H 03/12/23 09:36 Pulse Oximetry 96 03/12/23 09:36 Oxygen Delivery Method Room Air 03/12/23 09:36 Medications Administered Medications: Generic Name Dose Route Start Last Admin Trade Name Freq PRN Reason Stop Dose Admin Lidocaine HCl 6 ml 03/12/23 10:50 03/12/23 10:55 Lidocaine Hcl 2 % Jelly (Top) Sterile UR 6 ml ONCE PRN Administration Discontinued Medications Generic Name Dose Route Start Last Admin Trade Name Freq PRN Reason Stop Dose Admin Docusate Sodium/Benzocaine 5 ml 03/12/23 10:46 03/12/23 10:55 Docusate Sodium/Benzocaine 5 Ml Enema AR 03/12/23 10:47 5 ml ONCE ONE Administration Medical Decision Making Lab Data Lab results reviewed: Yes I reviewed the patient's lab results Labs: Lab Results 03/12/23 Range/Units 10:06 WBC 5.91 (4.50-11.00) K/uL RBC 4.51 (4.30-5.90) m/uL Hgb 13.7 (13.5-17.5) gm/dL Hct 40.7 (37.0-53.0) % MCV 90 (80-100) fL MCH 30 (26-34) pg MCHC 34 (32-36) gm/dL RDW Coeff of Rfanklin 12.9 (11.5-15.5) % Plt Count 278 (140-440) K/uL Neut % (Auto) 66.4 (42.0-72.0) % Lymph % (Auto) 19.5 L (20-44) % [place] % (Auto) 11.8 H (0.0-11.0) % Eos % (Auto) 1.9 (0.0-7.0) % Baso % (Auto) 0.2 (0.0-3.0) % Neut # (Auto) 3.93 (1.7-7.0) K/uL Lymph # (Auto) 1.20 (0.90-2.90) K/uL [place] # (Auto) 0.70 (0.00-0.90) K/UL Eos # (Auto) 0.11 (0.00-0.50) K/uL Baso # (Auto) 0.01 (0.00-0.30) K/uL Abs Immat Gran (auto) 0.01 (0.00-0.30) K/uL Imm/Tot Granulo (auto) 0.2 % Sodium 135 (135-149) mmol/L Potassium 4.1 (3.6-5.1) mmol/L Chloride 101 (96-114) mmol/L Carbon Dioxide 28 (20-32) mmol/L Anion Gap 6 L (7-15) mEq/L BUN 11 (7-30) mg/dL Creatinine 0.6 (0.5-1.5) mg/dL Estimated Creat Clear 64.84 Estimated GFR 99 ml/min Glucose 100 (60-115) mg/dL Calcium 8.9 (8.4-10.6) mg/dL Imaging Data Abdominal x-ray: Attestation: I have reviewed the pertinent imaging results. My impression: As above, see significant stool within the colon but not down to the rectum. Do not see any obstructive changes on my preliminary review. Radiologist's impression: Patient: SHOBHA BEARD Facility:?[facility] Patient ID:?[id number] Site Patient ID:?[id number]. Site :?[id number] Study:?XRay Abdomen FLAT /UPRIGHT 2V-03/12/2023 10:31:42 AM Ordering Physician:?Olivia Townsend Final Report: Indication: Abdomen pain. Technique: Abdomen 2 view. Comparison: None. Findings: Bowel: Bowel gas pattern is nonobstructive. Moderate/large colonic stool burden. No abnormally dilated small bowel loops. Other: No sign of free air. No sign of soft tissue mass. No suspicious calcifications. Osseous structures are unremarkable for age. Impression: Moderate/large colonic stool Dictated by Kashif Ahuja MD @ 03/12/2023 10:44:45 AM (Electronic Signature) Discharge Plan Discharge Clinical Impression: Constipation Patient Disposition: Home, Self-Care Condition: Stable Instructions: Constipation (ED), High Fiber Diet (ED) Additional Instructions: Can continue with MiraLax 17 g daily. If you start to go into 2 soft of stools or diarrhea, can back off the dose of this. Imodium is for diarrhea, would not take this if you are having problems with constipation. It is important to have adequate fluids and fiber in your diet, review handout. Please follow-up with your primary care provider in clinic to review your bowel concerns in issues with constipation, fecal incontinence at times. Activity Level: Activity as Tolerated Prescriptions: No Action vitamin B complex [B Complex-Vitamin B12] Tablet 1 tab PO QDAY omega-3 fatty acids 500 mg capsule 500 mg PO QDAY zinc 50 mg tablet 50 mg PO QDAY multivitamin [Multiple Vitamins] Tablet 1 tab PO QAM folic acid 400 mcg tablet 1 mg PO DAILY fluticasone propionate 50 mcg/actuation spray,suspension 2 spray intranasal DAILY PRN tamsulosin 0.4 mg capsule 0.4 mg PO QHS Qty: 90 0RF hydrochlorothiazide 25 mg tablet 25 mg PO DAILY Qty: 90 1RF esomeprazole magnesium 40 mg capsule,delayed release(DR/EC) 40 mg PO DAILY Qty: 90 0RF atorvastatin 10 mg tablet 10 mg PO DAILY Qty: 90 3RF hydrocortisone 2.5 % cream 1 applic topical QDAY Qty: 30 0RF budesonide 0.5 mg/2 mL suspension for nebulization 0.25 mg irrigation Q12H Patient Comments: using as a nasal rinse BID diphenhydramine-acetaminophen [Tylenol PM Extra Strength] 25-500 mg tablet 1 tab PO QHS PRN peg 3350-electrolytes [Golytely] 236-22.74-6.74 -5.86 gram recon soln 240 ml PO ONCE Qty: 4000 0RF Rx Instructions: 4pm day prior to procedure. Drink 8oz glass every 15 minutes until 1/2 of solution is gone. 6 hours prior to your procedure time drink 8oz glass every 15 minutes until remaining solution is gone. Follow Up/Referrals: Jono Ross MD [Primary Care Provider] - Stand Alone Forms: [facility] Info Instructions
--- NOTE | 2023-03-12 09:51 | CRLHL7_ITS ---
For Patients: As a result of the Century Cures Act, medical imaging exams and procedure reports are released immediately into your electronic medical record. You may view this report before your referring provider. If you have questions, please contact your health care provider. Indication: Abdomen pain. Technique: Abdomen 2 view. Comparison: None. Findings: Bowel: Bowel gas pattern is nonobstructive. Moderate/large colonic stool burden. No abnormally dilated small bowel loops. Other: No sign of free air. No sign of soft tissue mass. No suspicious calcifications. Osseous structures are unremarkable for age. Impression: Moderate/large colonic stool Dictated by Kashif Ahuja MD @ 03/12/2023 10:44:45 AM (Electronically Signed)
[2023-03-12 10:16] LABS: Basophils Absolute Auto 0.01 K/uL (0.00-0.30); Basophils Percent Auto 0.2 % (0.0-3.0); Eosinophils Absolute Auto 0.11 K/uL (0.00-0.50); Eosinophils Percent Auto 1.9 % (0.0-7.0); Hematocrit 40.7 % (37.0-53.0); Hemoglobin* 13.7 gm/dL (13.5-17.5); Immature Granulocytes Abs Auto 0.01 K/uL (0.00-0.30); Immature Granulocytes Pct Auto 0.2 %; Lymphocytes Percent Auto 19.5 % (20-44); Mean Corpuscular HGB Conc 34 gm/dL (32-36); Mean Corpuscular Hemoglobin 30 pg (26-34); Mean Corpuscular Volume 90 fL (80-100); Monocytes Percent Auto 11.8 % (0.0-11.0); Neutrophils Absolute Auto 3.93 K/uL (1.7-7.0); Neutrophils Percent Auto 66.4 % (42.0-72.0); Platelet Count* 278 K/uL (140-440); RDW Coefficient of Variation % 12.9 % (11.5-15.5); Red Blood Count 4.51 m/uL (4.30-5.90); White Blood Count* 5.91 K/uL (4.50-11.00)
[2023-03-12 10:23] LABS: Slide Review Reflex No
[2023-03-12 10:31] LABS: Chloride* 101 mmol/L (96-114); Potassium* 4.1 mmol/L (3.6-5.1); Sodium* 135 mmol/L (135-149)
[2023-03-12 10:34] LABS: Anion Gap 6 mEq/L (7-15); Blood Urea Nitrogen* 11 mg/dL (7-30); Carbon Dioxide* 28 mmol/L (20-32); Creatinine* 0.6 mg/dL (0.5-1.5); Est. Creatinine Clearance* 64.84; Estimated Glomerular Filt Rate 99 ml/min
[2023-03-12 10:35] LABS: Calcium* 8.9 mg/dL (8.4-10.6); Glucose* 100 mg/dL (60-115)
--- OUTSIDE RECORDS SUMMARY | 2023-03-12 10:53 | XMS_ITS | Clinical Summary ---
Author Name Unknown Organization [facility] Address [address] [place] [address] Care Team Providers Care Mental Health Social Worker Name Role Phone Unavailable Primary Care Provider Unavailabl e Source Comments Patient records contain information from all sites at [facility]. For routine questions regarding patient records, call [phone] during business hours, M-F 8:00 AM - 5:00 PM Central Time. Record requests for emergency care only can be directed to [phone] at any time.[facility] Allergies Active Allergy Reactions Criticality Noted Date Comments Mold Other (see comments) 05/12/2022 Medications Medication Sig Dispensed Refills Start Date End Date Status albuterol 90 mcg/actuation inhaler 0 11/04/2020 Active hydroCHLOROthiazide (HYDRODIURIL) 25 mg tablet 0 09/24/2020 Active nystatin (MYCOSTATIN) 100,000 unit/mL suspension 0 11/25/2020 Active albuterol 0.63 mg/3 mL nebulizer solution Inhale 0.63 mg by nebulization every 6 (six) hours as needed for wheezing. 0 Active budesonide (PULMICORT) 0.5 mg/2 mL nebulizer solution Mix 1 ampule budesonide in 8 oz saline solution. Irrigate 4 oz into each nostril twice daily. 120 mL 11 06/02/2022 Active multivitamin tablet Take 1 tablet by mouth. 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 Immunizations Name Administration Dates Next Due H1N1 All Forms 02/04/2009 HZV (ZOSTAVAX) 11/25/2012 HepA Adult 01/14/2004 HepB Adult 10/05/2003 Influenza (IM) Preservative Free 013,11/27/2011,12/02/2010,2009 Influenza, Seasonal, Injectable 12/09/2007,12/01,12/20/2002 Influenza, Unspecified 11/09/2008 PCV13 11/19/2014 PPSV23 12/17/2009 RZV (SHINGRIX) 2019, 9,05/24/2018,2018 SARS-COV-2 (COVID-19) - MODERNA 12/12/2020 Td (Adult), adsorbed 10/05/2003 Tdap 11/21/2013 influenza high dose (65 year s or older) (PF) 11/16/2018,11/26/2017,12/11/2016,2014,11/21/2013 influenza vaccine quad (FLUZONE/FLUARIX) (6 months and older)(PF) 2019,12/11/2015 Family History Medical History Relation Name Comments Alcohol abuse Father Roger Salazar Arthritis Mother Jacquie Salazar Dementia Mother Jacquie Salazar Transient ischemic attack Mother Jacquie Salazar Relation Name Status Comments Father Roger Salazar Mother Jacquie Salazar Social History Tobacco Use Types Packs/Day Years Used Date Smoking Tobacco: Former Cigarettes 1.5 20 0 07/16/1965 - 02/15/1985 Smokeless Tobacco: Never Tobacco Cessation:Counseling Given: Not Answered Alcohol Use Standard Drinks/Week Comments Yes 21 (1 standard drink = 0.6 oz pu re alcohol) Social Connection and Isolation Panel [NHANES] A nswer Date Recorded In a typical week, how many times do you talk on the phone with family, friends, or neighbors? Once a week 12/06/2020 How often do you get together with friends or re latives? Once a week 12/06/2020 How often do you attend jain or zoroastrianism serv ices? Never 12/06/2020 Do you belong to any clubs o r organizations such as jain groups, unions, fraternal or athletic groups, or school groups? No 12/06/2020 How often do you attend meet ings of the clubs or organizations you belong to? Never 12/06/2020 Are you , , di vorced, , never , or living with a partner? 12/06/2020 AUDIT-C Answer Date Recorded Q1: How often do you have a drink containing alcohol? 4 or more times a week 12/06/2020 Q2: How many drinks containi ng alcohol do you have on a typical day when you are drinking? 3 or 4 Q3: How often do you have si x or more drinks on one occasion? Monthly 12/06/2020 Overall Financial Resource Strain (CARDIA) Answe r Date Recorded How hard is it for you to pa y for the very basics like food, housing, medical care, and heating? Not hard at all 12/06/2020 [facility] Occupat ional Health - Occupational Stress Questionnaire Answer Date Recorded Do you feel stress - tense, restless, nervous, or anxious, or unable to sleep at night because your mind is troubled all the time - these days? Rather much 12/06/2020 Exercise Vital Sign Answer Date Recorde d On average, how many days pe r week do you engage in moderate to strenuous exercise (like a brisk walk)? 4 days 12/06/2020 On average, how many minutes do you engage in exercise at this level? 60 min 12/06/2020 Hunger Vital Sign Answer Date Recorded Within the past 12 months, y ou worried that your food would run out before you got the money to buy more. Never true 12/07/19 21 Within the past 12 months, t he food you bought just didn't last and you didn't have money to get more. Never true 12/06/2020 PRAPARE - Transportation Answer Date Re corded In the past 12 months, has l ack of transportation kept you from medical appointments or from getting medications? No 11/16 In the past 12 months, has l ack of transportation kept you from meetings, work, or from getting things needed for daily living? No 12/06/2020 Housing Stability Vital Sign Answer Davon e Recorded In the last 12 months, was t here a time when you were not able to pay the mortgage or rent on time? No 12/06/2020 In the last 12 months, how many places have you lived? 1 12/06/2020 In the last 12 months, was t here a time when you did not have a steady place to sleep or slept in a half-way (including now)? No 12/06/2020 Nutrition Answer Date Recorded Nutrition: EVOO Fat Source No 12/06 On average, how many serving s of fruits and vegetables do you eat per day (serving size is equal to 1 cup or approximately the size of a tennis ball)? 4-5 12/06/2020 Dental Answer Date Recorded Dental: Regular Dentist No 02/22/19 Employment Answer Date Recorded Employment status Retired 12/06/2020 Education Answer Date Recorded What is the highest level of school you have completed or the highest degree you have received? Bachelor's degree (e.g., BA, AB, BS) 12/06/2020 Sex and Gender Information Value Date Recorded Sex Assigned at Not on file Gender Identity Male 12/06/2020 11:11 AM CDT Sexual Orientation Choose not to disclose 2020 11:11 AM CDT Last Filed Vital Signs Vital Sign Reading Time Taken Comments Blood Pressure 141/67 12/10/2020 1:08 PM CDT Pulse 97 12/10/2020 1:08 PM CDT Temperature 36.6 ??C (97.9 ??F) 06/02/2022 1:47 PM CD T Respiratory Rate - - Oxygen Saturation 98% 12/10/2020 1:08 PM CDT Inhaled Oxygen Concentration - - Weight 109 kg (241 lb 4.7 oz) 06/02/2022 1:47 PM CDT Height 177.3 cm (5' 9.8) 06/02/2022 1:47 PM CDT Body Mass Index 34.82 06/02/2022 1:47 PM CDT Plan of Treatment Health Maintenance Due Date Last Done Comments Hepatitis C Screening 1945 Hepatitis A Vaccines (2 of 2 - Risk 2-dose series) 07/13/2004 01/14/2004 Hepatitis B Vaccines (3 of 3 - 19+ 3-dose series) 02/05/2021 12/11/2020, 10/05/2003 Depression Screening (Annual PHQ-2) 02/15/2023 Fall Risk Screen (Annual) 02/15/2023 DTaP,Tdap,and Td Vaccines (2 - Td or Tdap) 11/22/2023 11/21/2013, 10/05/2003 Pneumococcal vaccine (65+ years) Completed 11/20/19 15, 12/17/2009 Zoster Vaccines Completed 2019, 11/0 08/2018, 05/24/2018, Additional history exists COVID-19 Vaccine Completed 12/03/2022, , 10/29/2021, Additional history exists Influenza Vaccine Completed 12/09/2022, , 12/11/2020, Additional history exists
--- OUTSIDE RECORDS SUMMARY | 2023-03-12 10:53 | XMS_ITS | Encounter Summary ---
Author Name Unknown Organization [facility] Address [address] [place] [address] Care Team Providers Care Speedboat Operator Name Role Phone Unavailable Primary Care Provider Unavailabl e Encounter Details Date Type Department Care Team (Latest Contact Info) Description 06/02/2022 9:05 AM CDT - 06/02/2022 11:59 PM CDT Hospital Encounter Department of Laboratory Medicine and Pathology, [facility] in [place], [place] [address] [place] [address] Rolando Shaw M.D., Ph.D. [address] [place] [address] Sinusitis Discharge Disposition: Home or Self Care Social History Tobacco Use Types Packs/Day Years Used Date Smoking Tobacco: Former Cigarettes 1.5 20 0 07/16/1965 - 02/15/1985 Smokeless Tobacco: Never Alcohol Use Standard Drinks/Week Comments Yes 21 [...] week 12/06/2020 How often do you attend anabaptist or druze serv ices? Never 12/06/2020 Do you belong to any clubs o r organizations such as anabaptist groups, unions, fraternal or athletic groups, or [...] and heating? Not hard at all 12/06/2020 [facility] of Occupat ional Health - Occupational Stress [...] place to sleep or slept in a mcc (including now)? No 12/06/2020 Nutrition Answer Date Recorded Nutrition: EVOO Fat Source No 12/06 On average, how many serving s of fruits and vegetables do you eat per day (serving size is equal to 1 cup or approximately the size of a tennis ball)? 4-5 12/06/2020 Dental Answer Date Recorded Dental: Regular Dentist No 02/22/19 23 Employment Answer Date Recorded Employment status Retired [...] not to disclose 2020 11:11 AM CDT documented as of this encounter Medications at Time of Discharge Medication Sig Dispensed Refills Start Date End Date albuterol 0.63 mg/3 mL nebulizer solution Inhale 0.63 mg by nebulization every 6 (six) hours as needed for wheezing. 0 albuterol 90 mcg/actuation inhaler 0 11/04/2020 budesonide (PULMICORT) 0.5 mg/2 mL nebulizer solution Mix 1 ampule budesonide in 8 oz saline solution. Irrigate 4 oz into each nostril twice daily. 120 mL 11 06/02/2022 hydroCHLOROthiazide (HYDRODIURIL) 25 mg tablet 0 09/24/2020 multivitamin tablet Take 1 tablet by mouth. 0 08/13/2021 nystatin (MYCOSTATIN) 100,000 unit/mL suspension 0 11/25/2020 atorvastatin (LIPITOR) 10 mg tablet Take 10 mg by mouth. 0 08/13/2021 023 B complex-vitamins (BALANCE B-50) tablet Take 1 tablet by mouth. 0 08/14/1906/03/2022 esomeprazole (NexIUM) [address] capsule Take 40 mg by mouth. 0 01/01/2022 esomeprazole (NexIUM) [address] capsule 0 04/21/2022 06/03/2022 fluticasone propionate (CUTIVATE) 0.005 % ointment Apply to affected nostril(s). 0 08/13/2021 06/03/2022 folic acid 0.25 mg tablet Take 1 mg by mouth. 0 08/13/2021 06/04/19 23 hydroCHLOROthiazide (MICROZIDE) 12.5 mg capsule Take 25 mg by mouth. 0 12/31/2021 023 omega-3 fatty acids 100 mg tablet,chewable Chew 500 mg. 0 08/13/202106/03 tamsulosin (FLOMAX) 0.4 mg 24 hr capsule 0 04/28/2022 023 tamsulosin (FLOMAX) 0.4 mg 24 hr capsule Take 0.4 mg by mouth. 0 01/01/2022 06/03/2022 zinc 1 mg/mL injection Take 50 mg by mouth. 0 08/13/2021 06/03/2022 documented as of this encounter Plan of Treatment Not on file documented as of this encounter Procedures Procedure Name Priority Date/Time Associated Diagnosis Comments CBC WITH DIFFERENTIAL, B Routine 06/02/2022 9:16 AM CDT Sinusitis IMMUNOGLOBULIN E (IGE), S Routine 06/02/2022 9:16 AM CDT Sinusitis documented in this encounter Results * (ABNORMAL) Immunoglobulin E (IgE) (06/02/2022 9:16 AM CDT) Immunoglobulin E (IgE), S 497(H) <=214 kU/L 06/02/2022 5:13 PM CDT [facility] Blood (Blood, Venous) 06/02/2022 9:16 AM CDT 06/02/2022 2:07 PM CDT Rolando Shaw M.D., Ph.D. LAB BLOOD ADD-ON [facility] [address] [place] [address] [facility] [address] [place] [address] * (ABNORMAL) CBC with Differential, Blood (06/02/2022 9:16 AM CDT) Hemoglobin 14.1 13.2 - 16.6 g/dL 06/02/2022 11:08 AM CDT DTL Hematocrit 41.4 38.3 - 48.6 % 06/02/2022 11:08 AM CDT DTL Erythrocytes 4.66 4.35 - 5.65 x10(12)/L 06/02/2022 11:08 AM CDT DTL MCV 88.8 78.2 - 97.9 fL 06/02/2022 11:08 AM CDT DTL RBC Distrib Width 13.2 11.8 - 14.5 % 06/02/2022 11:08 AM CDT DTL Platelet Count 330(H) 135 - 317 x10(9)/L 06/02/2022 11:08 AM CDT DTL Leukocytes 9.5 3.4 - 9.6 x10(9)/L 06/02/2022 11:08 AM CDT DTL Neutrophils 6.42 1.56 - 6.45 x10(9)/L 06/02/2022 11:08 AM CDT DTL Lymphocytes 1.90 0.95 - 3.07 x10(9)/L 06/02/2022 11:08 AM CDT DTL Monocytes 0.94(H) 0.26 - 0.81 x10(9)/L 06/02/2022 11:08 AM CDT DTL Eosinophils 0.18 0.03 - 0.48 x10(9)/L 06/02/2022 11:08 AM CDT DTL Basophils 0.04 0.01 - 0.08 x10(9)/L 06/02/2022 11:08 AM CDT DTL Blood (Blood, Venous) 06/02/2022 9:16 AM CDT 06/02/2022 9:41 AM CDT Rolando Shaw M.D., Ph.D. LAB BLOOD ADD-ON [facility] [address] [place], [place] [address] DTL [facility] [address] [place] [address] documented in this encounter Visit Diagnoses Diagnosis Sinusitis documented in this encounter
--- OUTSIDE RECORDS SUMMARY | 2023-03-12 10:53 | XMS_ITS | Encounter Summary ---
Author Name Unknown Organization [facility] Address [address] [place] [address] Care Team Providers Care Sweatband Cutting Machine Operator Name Role Phone Unavailable Primary Care Provider Unavailabl e Reason for Visit * Reason Onset Date Comments Can't get budesonide at local pharmacy 3 Encounter Details Date Type Department Care Team (Late st Contact Info) Description 07/31/2022 Clinical Communication Division of Allergic Diseases in [place], [place] [address] [place] [address] Agustina Dillard M.D. [address] [place] [address] Can't get budesonide at local pharmacy Social History Tobacco Use Types Packs/Day Years [...] week 12/06/2020 How often do you attend voodoo or sikhism serv ices? Never 12/06/2020 Do you belong to any clubs o r organizations such as voodoo groups, unions, fraternal or athletic groups, or [...] and heating? Not hard at all 12/06/2020 [facility] of Occupat ional Health - Occupational Stress [...] place to sleep or slept in a skilled nursing (including now)? No 12/06/2020 Nutrition Answer Date [...] AM CDT documented as of this encounter Miscellaneous Notes * Telephone Encounter - Debra Anderson - 07/31/2022 12:56 PM CDT Rolando Salazar called. Since his local pharmacy can't give him budesonide, can the prescription be sent to [facility]? Please let him know [phone]. Thanks documented in this encounter Plan of Treatment Not on file documented as of this encounter Visit Diagnoses Not on filedocumented in this encounter
--- OUTSIDE RECORDS SUMMARY | 2023-03-12 10:53 | XMS_ITS | Encounter Summary ---
Author Name Unknown Organization [facility] Address [address] [place] [address] Care Team Providers Care Project Management Specialist Name Role Phone Unavailable Primary Care Provider Unavailabl e Reason for Referral * MRI/CAT/PET Scan (Routine) - Closed Specialty Diagnoses / Procedures Referred By Landon mccauley Referred To Contact Radiology Diagnoses Sinusitis Procedures CT Sinuses without IV Contrast Rolando Shaw M.D., Ph.D. [address] [place] [phone] [facility] Referral ID Status Reason Start Date Expiration Date Visits Re quested Visits Authorized [id number] Closed 05/25/2022 05/25/2023 1 1 Reason for Visit * MRI/CAT/PET Scan (Routine) - Closed Specialty Diagnoses / Procedures Referred By Landon mccauley Referred To Contact Radiology Diagnoses Sinusitis Procedures CT Sinuses without IV Contrast Rolando Shaw M.D., Ph.D. [address] [place] [phone] [facility] Referral ID Status Reason Start Date Expiration Date Visits Re quested Visits Authorized [id number] Closed 05/25/2022 05/25/2023 1 1 Encounter Details Date Type Department Care Team (Latest Contact Info) Description 06/02/2022 8:32 AM CDT - 06/02/2022 9:04 AM CDT Hospital Encounter Department of Radiology, [facility], in [place], [place] [address] [place] [address] Rolando Shaw M.D., Ph.D. [address] [place] [address] Sinusitis Discharge Disposition: Home or Self Care [...] week 12/06/2020 How often do you attend caodaism or lutheran serv ices? Never 12/06/2020 Do you belong to any clubs o r organizations such as caodaism groups, unions, fraternal or athletic groups, or [...] and heating? Not hard at all 12/06/2020 [facility] [place] of Occupat ional Health - Occupational Stress [...] place to sleep or slept in a alf (including now)? No 12/06/2020 Nutrition Answer Date [...] 0 albuterol 90 mcg/actuation inhaler 0 11/04/2020 hydroCHLOROthiazide (HYDRODIURIL) 25 mg tablet 0 09/24/2020 [...] Procedure Name Priority Date/Time Associated Diagnosis Comments CT SINUSES WITHOUT IV CONTRAST RAD - Routine (most inpatients and all outpatients) 06/02/2022 8:53 AM CDT Sinusitis documented in this encounter Results * CT Sinuses without IV Contrast (06/02/2022 8:53 AM CDT) Anatomical Region Laterality Modality Head, Neuroradiology RST LOS , Neuroradiology ARZ LOS, Neuroradiology FLA LOS N/A Computed Tomography, Compute d Tomography 06/02/2022 9:30 AM CDT Impressions 06/02/2022 9:47 AM CDT 1. Opacification of left antral outflow tract. 2. Mild generalized thickening of the nasal mucosa. Narrative 06/02/2022 9:47 AM CDT EXAM: CT SINUSES WITHOUT IV CONTRAST COMPARISON: None FINDINGS: On the left, membrane thickening opacifies the antral side of the infundibulum, including a small polyp or retention cyst. Membrane thickening in ethmoid air cells adjacent to the ostiomeatal unit. The ethmoid bulla is clear. Large left agger nasi cell projects superiorly into a developmentally small left frontal sinus. Pneumatization of left middle nasal turbinate. Mucosal contact between the middle and inferior turbinates is indeterminant for adhesion versus incidental contact. On the right, there is mild generalized membrane thickening without evidence of outflow obstruction. Undulating nasal septum. Small adhesions between middle turbinate, nasal septum and inferior turbinate. Debris within both external auditory canals. Mastoid air cells and middle ear cavities are clear. Procedure Note Shawn Tracy M.D. - 06/02/2022 EXAM: CT SINUSES WITHOUT IV CONTRAST COMPARISON: None FINDINGS: On the left, membrane thickening opacifies the antral side of theinfundibulum, including a small polyp or retention cyst. Membrane thickening in ethmoid air cells adjacentto the ostiomeatal unit. The ethmoid bulla is clear. Large left agger nasi cell projects superiorlyinto a developmentally small left frontal sinus. Pneumatization of left middle nasal turbinate.Mucosal contact between the middle and inferior turbinates is indeterminant for adhesion versusincidental contact. On the right, there is mild generalized membrane thickening withoutevidence of outflow obstruction. Undulating nasal septum. Small adhesions between middle turbinate, nasalseptum and inferior turbinate. Debris within both external auditory canals. Mastoid air cells and middleear cavities are clear. IMPRESSION: 1. Opacification of left antral outflow tract. 2. Mild generalized thickening of the nasal mucosa. Rolando Shaw M.D., Ph.D. IMG CT PROCEDURES documented in this encounter Visit Diagnoses Diagnosis Sinusitis documented in this encounter
--- OUTSIDE RECORDS SUMMARY | 2023-03-12 10:53 | XMS_ITS | Encounter Summary ---
Author Name Unknown Organization [facility] Address [address] [place] [address] Care Team Providers Care Lead Business Analyst Name Role Phone Unavailable Primary Care Provider Unavailabl e Encounter Details Date Type Department Care Team (Late st Contact Info) Description 06/02/2022 3:30 PM CDT Education Division of Allergic Diseases in [place], [place] [address] [place] [address] Agustina Dillard M.D. [address] [place] [phone] Belia Frazier, Jillian.S.N., R.N. Sinusitis Social History Tobacco Use Types Packs/Day Years [...] week 12/06/2020 How often do you attend taoist or oriental orthodox serv ices? Never 12/06/2020 Do you belong to any clubs o r organizations such as taoist groups, unions, fraternal or athletic groups, or [...] and heating? Not hard at all 12/06/2020 [facility] [place] of Occupat ional Health - Occupational Stress [...] place to sleep or slept in a senior living (including now)? No 12/06/2020 Nutrition Answer Date [...] AM CDT documented as of this encounter Plan of Treatment Not on file documented as of this encounter Visit Diagnoses Diagnosis Sinusitis documented in this encounter
--- OUTSIDE RECORDS SUMMARY | 2023-03-12 10:53 | XMS_ITS ---
Author Name Unknown Organization [facility] Address [address] [place] [address] Care Team Providers Care First Aid Teacher Name Role Phone Unavailable Unavailable Unavailable Surgery Details Not on file Complications Check Surgery Details section. Procedure Estimated Blood Loss Check Surgery Details section. Procedure Findings Check Surgery Details section. Procedure Specimens Taken Check Surgery Details section.
--- OUTSIDE RECORDS SUMMARY | 2023-03-12 10:53 | XMS_ITS | Encounter Summary ---
Author Name Unknown Organization [facility] Address [address] [place] [id number] Care Team Providers Care Clerk Operator Name Role Phone Unavailable Primary Care Provider Unavailabl e Reason for Visit * Reason Comments Allergy Testing * Outpatient (Routine) - Closed Specialty Diagnoses / Procedures Referred By Landon mccauley Referred To Contact Diagnoses Sinusitis Procedures Northern Skin Test Rolando Shaw M.D., Ph.D. [address] [place] [phone] [facility] Referral ID Status Reason Start Date Expiration Date Visits Re quested Visits Authorized [id number] Closed 05/25/2022 05/25/2023 1 1 Encounter Details Date Type Department Care Team (Late st Contact Info) Description 06/02/2022 12:30 PM CDT Clinical Support Division of Allergic Diseases in [place], [place] [address] [place] [phone] Rolando Shaw M.D., Ph.D. [address] [place] [phone] Tanna Mcmahan R.N. [address] [place] [phone] Sinusitis Social History Tobacco Use Types Packs/Day [...] week 12/06/2020 How often do you attend judaism or oriental orthodox serv ices? Never 12/06/2020 Do you belong to any clubs o r organizations such as judaism groups, unions, fraternal or athletic groups, or [...] and heating? Not hard at all 12/06/2020 [facility] [place] of Occupat ional Health - Occupational Stress [...] place to sleep or slept in a longterm (including now)? No 12/06/2020 Nutrition Answer Date [...] AM CDT documented as of this encounter Procedure Notes * Hien Osborn, R.N. - 06/02/2022 12:30 PM CDTAssociated Order(s): ALI BASIC SKIN TEST; ALI NORTHERN SKIN TEST Panel Skin Tests Flowsheet Row Clinical Support from 06/02/2022 in Division of Allergic Diseases in [place], [place] Controls Prick Control 0 Histamine (15 min W/F) 6x6f Glycerine (15 min W/F) 0 Basic Panel Cat Hair 0 Cockroach mix (Kyrgyz & Faroese) 0 Dog AP 0 D.F. Mite 0 D.P. Mite 0 Horse 0 Alternaria Alternata 0 Aspergillus Fumigatus 0 Bipolaris Sorokiniana 0 Chaetomium Globosum 0 Curvularia Spicifera (Drechslera Spicifera) 0 Epicoccum 0 Fusarium 0 Geotrichum 0 Helminthosporium 0 Hormodendrum/Clad (Cladosporium Cladosporioides) 0 Mucor Racemosus 0 Penicillium Mix 0 Phoma Herbarum 0 Pullularia 0 Rhizopus Stolonifer 0 Stemphylium Solani 0 Northern Panel [place], White 0 Quintin, White 0 Birch 0 [place], Red 0 [place], Eastern 0 Elm, Kyrgyz 0 Maple 0 [place], Black 0 [place] 0 [place], White 0 [place], Kyrgyz 0 Berm[place] 0 [place] Blue 0 Orchard 0 Omari 0 Kochia 0 [place]'s [place] 0 Willis Elder, Burweed 0 Mugwort, Common 0 Plantain, Thai 0 Rough Pigweed 0 Wallisian thistle 0 Short Ragweed 0 [place], Sheep Red 0 Negative Skin Test. Clinical correlation recommended. documented in this encounter Plan of Treatment Not on file documented as of this encounter Procedures Procedure Name Priority Date/Time Associated Diagnosis Comments ALI NORTHERN SKIN TEST Routine 06/02/2022 12:30 PM CDT Sinusitis ALI BASIC SKIN TEST Routine 06/02/2022 1 2:30 PM CDT Sinusitis documented in this encounter Results * Northern Skin Test (06/02/2022 12:30 PM CDT) Narrative MMODAL - 06/02/2022 12:30 PM CDT Srinivasa Stevens M.D. ? 06/02/2022 ??1:44 PM Panel Skin Tests ?? Flowsheet Row Clinical Support from 06/02/2022 in Division of Allergic Diseases in [place], [place] Controls ?? Prick Control 0 Histamine (15 min W/F) 6x6f Glycerine (15 min W/F) 0 Basic Panel ?? Cat Hair 0 Cockroach mix (Kyrgyz & Faroese) 0 Dog AP 0 D.F. Mite 0 D.P. Mite 0 Horse 0 Alternaria Alternata 0 Aspergillus Fumigatus 0 Bipolaris Sorokiniana 0 Chaetomium Globosum 0 Curvularia Spicifera (Drechslera Spicifera) 0 Epicoccum 0 Fusarium 0 Geotrichum 0 Helminthosporium 0 Hormodendrum/Clad (Cladosporium Cladosporioides) 0 Mucor Racemosus 0 Penicillium Mix 0 Phoma Herbarum 0 Pullularia 0 Rhizopus Stolonifer 0 Stemphylium Solani 0 Northern Panel ?? [place], White 0 Quintin, White 0 Birch 0 [place], Red 0 [place], Eastern 0 Elm, Kyrgyz 0 Maple 0 [place], Black 0 [place] 0 [place], White 0 [place], Kyrgyz 0 [place] 0 [place] Blue 0 Orchard 0 Omari 0 Kochia 0 [place]'s Quarters 0 Willis Elder, Burweed 0 Mugwort, Common 0 Plantain, Thai 0 Rough Pigweed 0 Wallisian thistle 0 Short Ragweed 0 [place], Sheep Red 0 Negative Skin Test. ??Clinical correlation recommended. Rolando Shaw M.D., Ph.D. PROCEDURE/MINOR S URGICAL ORDERABLES MMODAL NA * Basic Skin Test (06/02/2022 12:30 PM CDT) Narrative MMODAL - 06/02/2022 12:30 PM CDT Srinivasa Stevens M.D. ? 06/02/2022 ??1:44 PM Panel Skin Tests ?? Flowsheet Row Clinical Support from 06/02/2022 in Division of Allergic Diseases in [place], [place] Controls ?? Prick Control 0 Histamine (15 min W/F) 6x6f Glycerine (15 min W/F) 0 Basic Panel ?? Cat Hair 0 Cockroach mix (Kyrgyz & Faroese) 0 Dog AP 0 D.F. Mite 0 D.P. Mite 0 Horse 0 Alternaria Alternata 0 Aspergillus Fumigatus 0 Bipolaris Sorokiniana 0 Chaetomium Globosum 0 Curvularia Spicifera (Drechslera Spicifera) 0 Epicoccum 0 Fusarium 0 Geotrichum 0 Helminthosporium 0 Hormodendrum/Clad (Cladosporium Cladosporioides) 0 Mucor Racemosus 0 Penicillium Mix 0 Phoma Herbarum 0 Pullularia 0 Rhizopus Stolonifer 0 Stemphylium Solani 0 Northern Panel ?? [place], White 0 Quintin, White 0 Birch 0 [place], Red 0 [place], Eastern 0 Elm, Kyrgyz 0 Maple 0 [place], Black 0 [place] 0 [place], White 0 [place], Kyrgyz 0 B[place] 0 [place] Blue 0 Orchard 0 Omari 0 Kochia 0 [place]'s [place] 0 Willis Elder, Burweed 0 Mugwort, Common 0 Plantain, Thai 0 Rough Pigweed 0 Wallisian thistle 0 Short Ragweed 0 [place], Sheep Red 0 Negative Skin Test. ??Clinical correlation recommended. Rolando Shaw M.D., Ph.D. PROCEDURE/MINOR S URGICAL ORDERABLES MMODAL NA documented in this encounter Visit Diagnoses Diagnosis Sinusitis documented in this encounter
--- OUTSIDE RECORDS SUMMARY | 2023-03-12 10:53 | XMS_ITS | Encounter Summary ---
Author Name Unknown Organization [facility] Address [address] [place] [address] Care Team Providers Care Belting Inspector Name Role Phone Unavailable Primary Care Provider Unavailabl e Encounter Details Date Type Department Care Team (Latest Contact Info) Description 05/29/2022 1:00 PM CDT Clinical Communication Virtual Review in [place], [place] [address] [place], [place] [phone] Canceled Social History Tobacco Use Types Packs/Day Years Used Date Smoking Tobacco: Never Assessed Social Connection and Isolation Panel [NHANES] A nswer Date Recorded In a typical week, how many times do you talk on the phone with family, friends, or neighbors? Once a week 12/06/2020 How often do you get together with friends or re latives? Once a week 12/06/2020 How often do you attend jain or orthodox serv ices? Never 12/06/2020 Do you [...] and heating? Not hard at all 12/06/2020 [facility] [place] of Occupat ional Health - Occupational Stress [...] place to sleep or slept in a assisted (including now)? No 12/06/2020 Nutrition Answer Date [...]
--- OUTSIDE RECORDS SUMMARY | 2023-03-12 10:53 | XMS_ITS | Encounter Summary ---
Author Name Unknown Organization [facility] Address [address] [place] [address] Care Team Providers Care Tobacco Packer Name Role Phone Unavailable Primary Care Provider Unavailabl e Encounter Details Date Type Department Care Team (Late st Contact Info) Description 10/28/2022 7:07 AM CDT - 10/28/2022 11:59 PM CDT Hospital Encounter Department of Laboratory Medicine and Pathology, [facility] in [place], [place] [address] [place] [phone] Agustina Dillard M.D. [address] [place] [phone] Chronic Cough; Sinusitis Discharge Disposition: Home or Self Care [...] week 12/06/2020 How often do you attend religion or episcopalian serv ices? Never 12/06/2020 Do you belong to any clubs o r organizations such as religion groups, unions, fraternal or athletic groups, or [...] and heating? Not hard at all 12/06/2020 [facility] [place] of Occupat ional Health - Occupational Stress [...] place to sleep or slept in a fci (including now)? No 12/06/2020 Nutrition Answer Date [...] nystatin (MYCOSTATIN) 100,000 unit/mL suspension 0 11/25/2020 documented as of this encounter Miscellaneous Notes * Result Encounter Note - Agustina Dillard M.D. - 11/30/2022 3:02 PM CDT Patient contacted via patient portal; no further testing indicated at this time. documented in this encounter Plan of Treatment Not on file documented as of this encounter Procedures Procedure Name Priority Date/Time Associated Diagnosis Comments IMMUNOGLOBULIN E (IGE), S Routine 11/26/2022 1:08 PM CDT Chronic Cough Sinusitis documented in this encounter Results * (ABNORMAL) Immunoglobulin E (IgE) (11/26/2022 1:08 PM CDT) Immunoglobulin E (IgE), S 462(H) <=214 kU/L 11/27/2022 10:09 AM CDT [facility] Blood (Blood, Venous) 11/26/2022 1:08 PM CDT 11/26/2022 8:06 PM CDT Agustina Dillard M.D. LAB BLOOD ADD-ON [facility] [address] [place] [address] [facility] [address] [place] [address] documented in this encounter Visit Diagnoses Diagnosis Chronic Cough Sinusitis documented in this encounter
--- OUTSIDE RECORDS SUMMARY | 2023-03-12 10:53 | XMS_ITS | Encounter Summary ---
Author Name Unknown Organization [facility] Address [address] [place] [address] Care Team Providers Care Classified Ad Taker Name Role Phone Unavailable Primary Care Provider Unavailabl e Reason for Referral * MRI/CAT/PET Scan (Routine) - Closed Specialty Diagnoses / Procedures Referred By Landon mccauley Referred To Contact Radiology Diagnoses Sinusitis Procedures CT Sinuses without IV Contrast Rolando Shaw M.D., Ph.D. [address] [place] [phone] [facility] Referral ID Status Reason Start Date Expiration Date Visits Re quested Visits Authorized [id number] Closed 05/25/2022 05/25/2023 1 1 * Outpatient (Routine) - Closed Specialty Diagnoses / Procedures Referred By Landon mccauley Referred To Contact Diagnoses Sinusitis Procedures Northern Skin Test Rolando Shaw M.D., Ph.D. 200 [place] [phone] [facility] Referral ID Status Reason Start Date Expiration Date Visits Re quested Visits Authorized [id number] Closed 05/25/2022 05/25/2023 1 1 * Outpatient (Routine) - Closed Specialty Diagnoses / Procedures Referred By Landon mccauley Referred To Contact Diagnoses Sinusitis Procedures Basic Skin Test Rolando Shaw M.D., Ph.D. [address] [place] [phone] [facility] Referral ID Status Reason Start Date Expiration Date Visits Re quested Visits Authorized [id number] Closed 05/25/2022 05/25/2023 1 1 Reason for Visit * Reason Onset Date Comments Pre-visit Testing Orders 05/20/2022 Encounter Details Date Type Department Care Team (Latest Contact Info) Description 05/20/2022 Clinical Communication Division of Allergic Diseases in [place], [place] [address] [place] [phone] Rolando Shaw M.D., Ph.D. [address] [place] [phone] Pre-visit Testing Orders Social History Tobacco Use Types Packs/Day Years [...] week 12/06/2020 How often do you attend christian or quaker serv ices? Never 12/06/2020 Do you belong to any clubs o r organizations such as christian groups, unions, fraternal or athletic groups, or [...] and heating? Not hard at all 12/06/2020 [facility] [place] [facility] - Occupational Stress Questionnaire Answer Date [...] on file documented as of this encounter Results * Northern Skin Test (06/02/2022 12:30 PM CDT) Narrative MMODAL - 06/02/2022 12:30 PM CDT Srinivasa Stevens M.D. ? 06/02/2022 ??1:44 PM Panel Skin Tests ?? Flowsheet Row Clinical Support from 06/02/2022 in Division of Allergic Diseases in [place], [place] Controls ?? Prick Control 0 Histamine (15 min W/F) 6x6f Glycerine (15 min W/F) 0 Basic Panel ?? Cat Hair 0 Cockroach mix (Bahamian & Armenian) 0 Dog AP 0 D.F. Mite 0 D.P. Mite 0 Horse 0 Alternaria Alternata 0 Aspergillus Fumigatus 0 Bipolaris Sorokiniana 0 Chaetomium Globosum 0 Curvularia Spicifera (Drechslera Spicifera) 0 Epicoccum 0 Fusarium 0 Geotrichum 0 Helminthosporium 0 Hormodendrum/Clad (Cladosporium Cladosporioides) 0 Mucor Racemosus 0 Penicillium Mix 0 Phoma Herbarum 0 Pullularia 0 Rhizopus Stolonifer 0 Stemphylium Solani 0 Northern Panel ?? [place], White 0 Quintin, White 0 Birch 0 [place], Red 0 [place], Eastern 0 Elm, Bahamian 0 Maple 0 [place], Black 0 [place] 0 [place], White 0 [place], Bahamian 0 Bermuda 0 Kentucky Blue 0 Orchard 0 Omari 0 Kochia 0 [place]don's Quarters 0 Willis Elder, Burweed 0 Mugwort, Common 0 Plantain, Danish 0 Rough Pigweed 0 Nicaraguan thistle 0 Short Ragweed 0 [place], Sheep Red 0 Negative Skin Test. ??Clinical correlation recommended. Rolando Shaw M.D., Ph.D. PROCEDURE/MINOR S URGICAL ORDERABLES MMODAL NA * Basic Skin Test (06/02/2022 12:30 PM CDT) Narrative MMODAL - 06/02/2022 12:30 PM CDT Srinivasa Stevens M.D. ? 06/02/2022 ??1:44 PM Panel Skin Tests ?? Flowsheet Row Clinical Support from 06/02/2022 in Division of Allergic Diseases in [place], [place] Controls ?? Prick Control 0 Histamine (15 min W/F) 6x6f Glycerine (15 min W/F) 0 Basic Panel ?? Cat Hair 0 Cockroach mix (Bahamian & Armenian) 0 Dog AP 0 D.F. Mite 0 D.P. Mite 0 Horse 0 Alternaria Alternata 0 Aspergillus Fumigatus 0 Bipolaris Sorokiniana 0 Chaetomium Globosum 0 Curvularia Spicifera (Drechslera Spicifera) 0 Epicoccum 0 Fusarium 0 Geotrichum 0 Helminthosporium 0 Hormodendrum/Clad (Cladosporium Cladosporioides) 0 Mucor Racemosus 0 Penicillium Mix 0 Phoma Herbarum 0 Pullularia 0 Rhizopus Stolonifer 0 Stemphylium Solani 0 Northern Panel ?? [place], White 0 Quintin, White 0 Birch 0 [place], Red 0 [place], Eastern 0 Elm, Bahamian 0 Maple 0 [place], Black 0 [place] 0 [place], White 0 [place], Bahamian 0 B[place] 0 [place] Blue 0 Orchard 0 Omari 0 Kochia 0 [place]'s Quarters 0 Willis Elder, Burweed 0 Mugwort, Common 0 Plantain, Danish 0 Rough Pigweed 0 Nicaraguan thistle 0 Short Ragweed 0 [place], Sheep Red 0 Negative Skin Test. ??Clinical correlation recommended. Rolando Shaw M.D., Ph.D. PROCEDURE/MINOR S URGICAL ORDERABLES Performing Organization Address City[facility] Co de Phone Number MMODAL NA * (ABNORMAL) Immunoglobulin E (IgE) (06/02/2022 9:16 AM CDT) Immunoglobulin E (IgE), S 497(H) <=214 kU/L 06/02/2022 5:13 PM CDT [facility] Blood (Blood, Venous) 06/02/2022 9:16 AM CDT 06/02/2022 2:07 PM CDT Rolando Shaw M.D., Ph.D. LAB BLOOD ADD-ON [facility] [address] [place] [address] [facility] [address] [place] [address] * (ABNORMAL) CBC with Differential, Blood (06/02/2022 9:16 AM CDT) [facility] Hemoglobin 14.1 13.2 - 16.6 g/dL 06/02/2022 [...] Rolando Shaw M.D., Ph.D. LAB BLOOD ADD-ON [facility] [address] [place] [address], [facility] DTL [facility] [address] [place] [address] * CT Sinuses without IV Contrast (06/02/2022 [...] documented in this encounter Visit Diagnoses Diagnosis Sinusitis- Primary Sinusitis Sinusitis documented in this encounter
--- OUTSIDE RECORDS SUMMARY | 2023-03-12 10:53 | XMS_ITS | Referral Summary ---
Author Name Unknown Organization [facility] Address [address] [place] [address] Care Team Providers Care Farmworker Name Role Phone Unavailable Primary Care Provider Unavailabl e Source Comments Patient records contain information from all sites at [facility]. For routine questions regarding patient records, call [phone] during business hours, M-F 8:00 AM - 5:00 PM Central Time. Record requests for emergency care only can be directed to [phone] at any time.[facility] Allergies Active Allergy Reactions Criticality Noted Date [...] quad (FLUZONE/FLUARIX) (6 months and older)(PF) 2019,12/11/2015 Social History Tobacco Use Types Packs/Day Years [...] week 12/06/2020 How often do you attend buddhism or oriental orthodox serv ices? Never 12/06/2020 Do you belong to any clubs o r organizations such as buddhism groups, unions, fraternal or athletic groups, or [...] and heating? Not hard at all 12/06/2020 [facility] - Occupational Stress Questionnaire Answer Date Recorded [...] place to sleep or slept in a detention (including now)? No 12/06/2020 Nutrition Answer Date [...] 06/02/2022 1:47 PM CDT Plan of Treatment Not on file
--- OUTSIDE RECORDS SUMMARY | 2023-03-12 10:53 | XMS_ITS | Encounter Summary ---
Author Name Unknown Organization [facility] Address [address] [place] [address] Care Team Providers Care Supervisor Partial Denture Department Name Role Phone Unavailable Primary Care Provider Unavailabl e Reason for Referral * Specialty Diagnoses / Procedures Referred By Landon mccauley Referred To Contact Agustina Dillard M.D. [address] [place] [phone] [facility] Referral ID Status Reason Start Date Expiration Date Visits Re quested Visits Authorized Reason for Visit * Outpatient (Routine) - Closed Specialty Diagnoses / Procedures Referred By Landon mccauley Referred To Contact Allergy and Immunology Diagnoses Allergy Unspecified Initial Sinusitis Jono Ross M.D. [address] [place] [address] [facility] Referral ID Status Reason Start Date Expiration Date Visits Re quested Visits Authorized [id number] Closed 05/13/2022 05/13/2023 1 1 Encounter Details Date Type Department Care Team (Late st Contact Info) Description 06/02/2022 2:00 PM CDT Comprehensive Visit Division of Allergic Diseases in [place], [place] [address] [place] [phone] Agustina Dillard M.D. [address] [place] [phone] Sinusitis (Primary Dx); Chronic Cough; Congestion Nasal Social History Tobacco Use Types Packs/Day Years [...] week 12/06/2020 How often do you attend sabianism or islam serv ices? Never 12/06/2020 Do you belong to any clubs o r organizations such as sabianism groups, unions, fraternal or athletic groups, or [...] and heating? Not hard at all 12/06/2020 [facility] - Occupational Stress [...] AM CDT documented as of this encounter Last Filed Vital Signs Vital Sign Reading Time Taken Comments Blood Pressure - - Pulse - - Temperature 36.6 ??C (97.9 ??F) 06/02/2022 1:47 PM CD T Respiratory Rate - - Oxygen Saturation - - Inhaled Oxygen Concentration - - Weight 109 kg (241 lb 4.7 oz) 06/02/2022 1:47 PM CDT Height 177.3 cm (5' 9.8) 06/02/2022 1:47 PM CDT Body Mass Index 34.82 06/02/2022 1:47 PM CDT documented in this encounter Consult Notes * Agustina Dillard M.D. - 06/02/2022 2:00 PM CDT Images from the original note were not included. SUBJECTIVE CHIEF COMPLAINT / REASON FOR VISIT Rolando Salazar is a 76 y.o. male presenting in referral from Jono Ross M.D. for consultation in the evaluation of sinusitis/rhinitis HISTORY OF PRESENT ILLNESS Patient presents today with his to discuss history of postnasal drip/productive cough present since the 1970s. He reports he started running around that time and was initially told he had exercise-induced asthma due to cough. Eventually he was evaluated by outside police liaison and was told hehad COPD with 20 year smoking history; he was placed on Trelegy and notes he was overall feeling significantly worse. He also notes that every time he was placed on prednisone during this period phlegm would clear completely. Eventually 12/13/2020 he was seen by pulmonology chronic cough/upper airway cough syndrome here andnoted to have evidence of COPD on PFTs; methacholine challenge test attempted but did not have reproducible results. LELO was negative. Rhinolaryngoscopy performed with no evidence polyps but consistent with rhinitis/postnasal drainage and laryngeal candidiasis. He was started on saline rinses, Benadryl, triple nasal spray, and nystatin. This did seem to have some good effect. Since that time patient reports he did try Mucinex, which also completely cleared up phlegm but resulted in diarrhea. He then began taking generic guaifenesin am and pm and found this to improve symptoms along with daily NeilMed sinus rinse and daily Claritin. He ran out of triple spray and did noti ce some worsening of symptoms, but switched to p.r.n. Flonase. He was not been using this consistently. He has tried Oxymetazoline nasal spray, but notes he has been very careful to not use it more than 3 days in a row and wait greater than a week before using again. He states he has rarely used this. Despite this, he continues to have bilateral nasal obstruction, facial pressure, with thick nasal discharge and postnasal drip with productive cough, which results in significant difficulty with sleep and subsequent fatigue. He reports this is worsened by dryness in the winter; humidifier has been somewhat helpful for this. He also notes there is seasonal worsening, particularly spring, where he will have ocular pruritus and watering and worsening nasal symptoms which Flonase does seem to help with. Other than the chronic productive cough however, he does not have any wheezing, shortness of breath, chest tightness, headaches, frequent epistaxis. Sense of smell is decreased. He does feel that smoke does make him overall feel unwell and irritates his nose though does not directly worsened his usual symptoms. He does use ibuprofen and Tylenol and has not noticed this worsening symptoms. Usually alcohol does not affect symptoms, though he did have a new beer in the past few weeks which caused dramatic increase in phlegm. Currently lives in [address] year old home with 4 cats; has not noticed worsening of symptoms when around cats. Overall he denies frequent episodes of sinusitis treated with antibiotics and he has not had sinus surgery. He currently sleeps propped up pillows to help with postnasal drip and cough. Note that his reports he used to snore severely, but has not done so in years. Due to interrupting cough throughout the night, they no longer share a bedroom so she is not sure if apnea is occurring. They deny difference in cough between day and night. Also note that he does have history of acid reflux which has dramatically improved since he startedwhat he believes to be [id number] omeprazole. He denies any recent symptoms. Current Outpatient Medications on File Prior to Visit Medication Sig Dispense Refill albuterol 0.63 mg/3 mL nebulizer solution Inhale 0.63 mg by nebulization every 6 (six) hours as needed for wheezing. albuterol 90 mcg/actuation inhaler hydroCHLOROthiazide (HYDRODIURIL) 25 mg tablet nystatin (MYCOSTATIN) 100,000 unit/mL suspension No current facility-administered medications on file prior to visit. No Known Allergies OBJECTIVE PHYSICAL EXAM General: Awake, alert, interactive. Eyes: No conjunctivitis. Nose: No nasal discharge present. Oropharynx: Well hydrated oral mucosa. No posterior pharynx erythema. Cardiac: Regular rate and rhythm. No murmur appreciated. Lungs: Clear to auscultation bilaterally. No wheezes, rales, or rhonchi. No accessory muscle use. Extremities: No cyanosis. No edema. Skin: Intact. No urticaria. No angioedema. CT sinus: Imaging reviewed. The radiology read as follows: FINDINGS: On the left, membrane thickening opacifies [...] cells and middle ear cavities are clear. IMPRESSION: 1. Opacification of left antral outflow tract. 2. Mild generalized thickening of the nasal mucosa. ASSESSMENT / PLAN #1 Sinusitis #2 Chronic Cough #3 Congestion Nasal Patient with perennial symptoms nasal obstruction, postnasal drip, productive cough, for the past 50 years. There is some seasonal worsening, but this is mild and not his primary concern. Skin prick testing today with good positive/negative control was negative for environmental allergens. He has been evaluated by chronic cough clinic in fall of 2020 with rhinoscopy and chest CT not concerning for other causes of his symptoms. With history of significant improvement with prednisone use and goodtolerance nasal rinses, we discussed trialing budesonide nasal rinses for 6-8 weeks. I have scheduled RN education visit regarding this as well. Request that if he has seen no change after trial he let us know, and I will plan to refer him to ENT for repeat rhinoscopy/evaluation. If budesonide rinses result in significant improvement, I would recommend he continue on the and we can touch base in 1 year regarding symptoms control. Patient Education: Ready to learn. No apparent learning barriers were identified. Explained diagnosis and treatment plan; patient/family expressed understanding of the content. The patient/family have no further questions or concerns at this time and are in agreement with the above plan. Agustina Dillard MD, Fellow With Rolando Shaw MD, Allergy/Immunology Juice Mixer ADDENDUM IgE level resulted at 497. I will request follow up results to trend this number given negative allergy testing and lack of asthmatic symptoms. Patient contacted via portal regarding this. * Rolando Shaw M.D., Ph.D. 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 I discussed his case with and agree with her clinical note from today. This is a supervising note. documented in this encounter Plan of Treatment Scheduled Referrals Name Type Priority Associated Diagnoses Orde r Schedule Allergy - Nurse education visit (clinic) Outpatient Referral Routine Sinusitis Expected: 06/02/2022, Expires: 09/02/2023 documented as of this encounter Results * (ABNORMAL) Immunoglobulin E (IgE) (11/26/2022 1:08 PM CDT) Immunoglobulin E (IgE), S 462(H) <=214 kU/L 11/27/2022 10:09 AM CDT [facility] Blood (Blood, Venous) 11/26/2022 1:08 PM CDT 11/26/2022 8:06 PM CDT Agustina Dillard M.D. LAB BLOOD ADD-ON [facility] [address] [place] [address] [facility] [address] [place] [id number] documented in this encounter Visit Diagnoses Diagnosis Sinusitis- Primary Chronic Cough Congestion Nasal documented in this encounter
--- OUTSIDE RECORDS SUMMARY | 2023-03-12 10:53 | XMS_ITS | Encounter Summary ---
Author Name Unknown Organization [facility] Address [address] [place] [address] Care Team Providers Care Auto Service Writer Name Role Phone Unavailable Primary Care Provider Unavailabl e Encounter Details Date Type Department Care Team ([facility] st Contact Info) Description 06/01/2022 Clinical Communication Division of Allergic Diseases in [place], [place] [address] [place] [phone] Agustina Dillard M.D. [address] [place] [phone] Social History Tobacco Use Types Packs/Day Years [...] week 12/06/2020 How often do you attend rastafarian or baptist serv ices? Never 12/06/2020 Do you belong to any clubs o r organizations such as rastafarian groups, unions, fraternal or athletic groups, or [...] and heating? Not hard at all 12/06/2020 [facility] - Occupational Stress Questionnaire Answer Date [...]
--- OUTSIDE RECORDS SUMMARY | 2023-03-12 10:54 | XMS_ITS | Encounter Summary ---
Author Name Unknown Organization [facility] Address [address] [place] [address] Care Team Providers Care Hot Car Operator Name Role Phone Unavailable Primary Care Provider Unavailabl e Reason for Referral * Outpatient (Routine) - Closed Specialty Diagnoses / Procedures Referred By Landon t Referred To Contact Allergy and Immunology Diagnoses Allergy Unspecified Initial Sinusitis Jono Ross M.D. [address] [place] [address] [facility] Referral ID Status Reason Start Date Expiration Date Visits Re quested Visits Authorized [id number] Closed 05/13/2022 05/13/2023 1 1 Encounter Details Date Type Department Care Team (Late st Contact Info) Description 05/13/2022 [facility] [address] [place] [address] Jono Ross M.D. [address] [place] [address] Allergy Unspecified Initial (Primary Dx) Social History Tobacco Use Types Packs/Day Years [...] week 12/06/2020 How often do you attend mormonism or confucianist serv ices? Never 12/06/2020 Do you belong to any clubs o r organizations such as mormonism groups, unions, fraternal or athletic groups, or [...] and heating? Not hard at all 12/06/2020 [facility] - Occupational Stress Questionnaire Answer Date Recorded [...] place to sleep or slept in a [place] health care facility (including now)? No 12/06/2020 Nutrition Answer Date [...] as of this encounter Plan of Treatment Scheduled Referrals Name Type Priority Associated Diagnoses Orde r Schedule Allergy Referral Outpatient Referral Routine Allergy Unspecified Initial Expected: 05/13/2022 (Approximate), Expires: 08/14/2023 documented as of this encounter Visit Diagnoses Diagnosis Allergy Unspecified Initial- Primary documented in this encounter
--- OUTSIDE RECORDS SUMMARY | 2023-03-12 10:54 | XMS_ITS | Clinical Summary ---
Author Name Unknown Organization [facility] Address [place], [place] [address] Care Team Providers Care Overedge Machine Operator Name Role Phone Jono Ross MD Primary Care Provider Allergies No known active allergies Medications Medication Sig Dispensed Refills Start Date End Date Status LIPITOR 10 MG TAB take 1 tablet (10 mg) by oral route once daily 30 0 10/20/2006 Active NEXIUM 40 MG CAP take 1 capsule (40 mg) by oral route once daily 30 0 10/20/2006 Active Active Problems Problem Noted Date Diagnosed Date Sensorineural hearing loss, bilateral 06/23/2011 Encounters Date Type Department Care Team Description 01/15/2023 Lab Requisition [facility] [phone] Unknown, Doctor from Last 3 Months Social History Tobacco Use Types Packs/Day Years Used Date Smoking Tobacco: Never Assessed Sex and Gender Information Value Date Recorded Sex Assigned at Not on file Gender Identity Not on file Sexual Orientation Not on file Plan of Treatment Health Maintenance Due Date Last Done Comments Tdap 11/30/1956 Depression screening for age 12+ 1956 BMI (ht and wt on same day) for age 18+ 1962 Hepatitis C screening for age 18-79 1962 Tetanus booster 1964 Zoster (shingles) series for age 50+ (1 of 2) 1994 Medicare Wellness for age 65+ 2009 Pneumococcal series for age 65+ (1 of 1 - PCV) 2009 COVID-19 vaccine series (2022- season) 2022 12/12/2020, 05/03/2020, 04/05/2020 Influenza for age 65+ 10/16/2022 Procedures Procedure Name Priority Date/Time Associated Diagnosis Comments LAB TRACKING EVENT Routine 01/15/2023 2: 10 PM TENSION WORKER PATH TISSUE EXAM Routine 01/15/2023 2:10 PM TENSION WORKER from Last 3 Months Results * LAB TRACKING EVENT (01/15/2023 2:10 PM TENSION WORKER) Other (Other) Client Collect / Unknown 01/15/2023 2:10 PM TENSION WORKER 01/15/2023 9:00 PM TENSION WORKER Doctor Unknown LAB BILL ONLY [facility] [employer] [facility] [address] [place] [id number], * PATH TISSUE EXAM (01/15/2023 2:10 PM TENSION WORKER) Case Report Pathology Report ?Case: [id number] ? Authorizing Provider: ??Unknown, Doctor ?Collected: ? 01/15/2023 1410 ? Ordering Location: ? [facility] ?Received: ?01/16/2023 0806 ? Pathologist: ? Sergei Saunders MD ? Specimens: ?? A) - Duodenum Biopsy ? B) - Stomach Biopsy ? C) - Distal Esophagus Biopsy ? D) - Mid Esophagus Biopsy ? E) - Transverse Colon Polyp ? 01/18/2023 2:21 PM [facility] ENTRSD LABORATORY Final Diagnosis A) DUODENUM, BIOPSY: 1. Normal duodenal mucosa 2. Negative for celiac disease and other enteropathy B) STOMACH, BIOPSY: 1. Normal gastric body mucosa 2. Negative for Helicobacter C) ESOPHAGUS, DISTAL, BIOPSY: 1. Normal esophageal squamous mucosa 2. Gastric cardia type mucosa with no diagnostic abnormality 3. Negative for reflux changes and eosinophilic esophagitis 4. Negative for intestinal metaplasia and dysplasia D) ESOPHAGUS, MID, BIOPSY: 1. Normal esophageal squamous mucosa 2. Negative for reflux changes and eosinophilic esophagitis 3. Negative for columnar mucosa E) COLON, TRANSVERSE, POLYPECTOMY: 1. Tubular adenoma 2. Negative for high grade dysplasia 3. Per the colonoscopy report: ?? a. Polyp size: 2 mm ?? b. Resection: Complete ?? c. Retrieval: Complete 01/18/2023 2:21 PM [facility] Clinical Information Upper abdominal symptoms that persist despite an appropriate trial of therapy and hematochezia EGD findings: Normal Colonoscopy findings: Single polyp in the transverse colon, completely removed. Diverticulosis and hemorrhoids. 01/18/2023 2:21 PM [facility] Gross Description A) Received in formalin is a shipley mucosal fragment measuring 4 mm in greatest dimension, which is entirely submitted in one cassette. It is labeled with the patient's name and designated duodenum. B) Received in formalin is a shipley mucosal fragment measuring 6 mm in greatest dimension, which is entirely submitted in one cassette. It is labeled with the patient's name and designated random stomach. C) Received in formalin are 2 shipley mucosal fragments ranging from 3 mm to 4 mm in greatest dimension, which are entirely submitted in one cassette. It is labeled with the patient's name and designated distal esophagus. D) Received in formalin are 2 shipley mucosal fragments ranging from 3 mm to 5 mm in greatest dimension, which are entirely submitted in one cassette. It is labeled with the patient's name and designated mid esophagus. E) Received in formalin is a shipley mucosal fragment measuring 4 mm in greatest dimension, which is entirely submitted in one cassette. It is labeled with the patient's name and designated colon-transverse , polyp. Cammie Bolanos 01/16/2023 9:25 AM 01/18/2023 2:21 PM [facility] Microscopic Description The final diagnosis is based on microscopic examination of appropriate sections of all specimens. 01/18/2023 2:21 PM TENSION WORKER [employer] LABORATORY-C ENTRAL LABORATORY Additional Information Interpreted at [facility] Fixed - Parking Tickets [facility], Central Laboratory - [address] [address] 01/18/2023 2:21 PM [facility] [employer] [facility] EN[facility] LAB[facility]AT[facility] Other (Duodenum Biopsy) 01/15/2023 2:10 PM TENSION WORKER 01/16/2023 8:06 AM TENSION WORKER Specimen (specimen) (Stomach Biopsy) 01/15/2023 2:10 PM TENSION WORKER 01/16/2023 8:06 AM TENSION WORKER Specimen (specimen) (Distal Esophagus Biopsy) 01/15/2023 2:10 PM TENSION WORKER 01/16/2023 8:06 AM TENSION WORKER Specimen (specimen) (Mid Esophagus Biopsy) 01/15/2023 2:10 PM TENSION WORKER 01/16/2023 8:06 AM TENSION WORKER Specimen (specimen) (Transverse Colon Polyp) 01/15/2023 2:33 PM TENSION WORKER 01/16/2023 8:06 AM TENSION WORKER Doctor Unknown PATHOLOGY/CYTOLOGY [facility] LABORATORY-CENTRAL LABORATORY [address] [place] [address], [place] from Last 3 Months Care Teams Overedge Machine Operator Relationship Specialty Start Date End Date Jono Ross MD [address] [place] [address] PCP - General 06/23/11
[2023-03-12] MEDS: DOCUSATE SODIUM/BENZOCAINE 5 ML ENEMA PR (10:55)
[2023-03-12] MEDS: lidocaine HCL 2 % JELLY (TOP) STERILE 6 ML UR (10:55)
== END 2023-03-12 11:35 | disposition home or self-care (01) ==
PROVIDERS: Emergency Provider Family Medicine; PCP Internal Medicine
DX: K59.00 Constipation, unspecified (principal)
CPT/HCPCS: 36415; 74019; 80048; 85025; 99283; 99284; A9270

== ENCOUNTER 2023-07-15 14:45 | Outpatient (CLI) | payer MEDICARE, BC, SELFPAY ==
--- OUTSIDE RECORDS SUMMARY | 2023-07-15 14:49 | XMS_ITS | Clinical Summary ---
Author Organization [facility] Address [address] [place] [address] Care Team Providers Care Case Finisher Name Role Phone Unavailable Primary Care Provider Unavailabl e Source Comments Patient records contain information from all sites at [facility]. For routine questions regarding patient records, call [phone] during business hours, M-F 8:00 AM - 5:00 PM Central Time. Record requests for emergency care only can be directed to [phone] at any time.[facility] Allergies Active Allergy Reactions Criticality Noted Date Comments Mold Other (see comments) 05/12/2022 Medications Medication Sig Dispensed Refills Start Date End Date Status albuterol 90 mcg/actuation inhaler 11/04/2020 Active hydroCHLOROthiazide (HYDRODIURIL) 25 mg tablet 09/24/2020 Active nystatin (MYCOSTATIN) 100,000 unit/mL suspension 11/25/2020 Active albuterol 0.63 mg/3 mL nebulizer solution Inhale 0.63 mg by nebulization every 6 (six) hours as needed for wheezing. Active budesonide (PULMICORT) 0.5 mg/2 mL nebulizer solution Mix 1 ampule budesonide in 8 oz saline solution. Irrigate 4 oz into each nostril twice daily. 120 mL 11 06/02/2022 Active multivitamin tablet Take 1 tablet by mouth. 08/13/2021 Active Active Problems Problem Noted Date Diagnosed Date Chronic Cough 12/10/2020 Immunizations Name Administration Dates Next Due H1N1 All Forms 02/04/2009 HZV (ZOSTAVAX) 11/25/2012 HepA Adult 01/14/2004 HepB Adult 10/05/2003 Influenza (IM) Preservative Free 013,11/27/2011,12/02/2010,2009 Influenza, Seasonal, Injectable 12/09/2007,12/01,12/20/2002 Influenza, Unspecified 11/09/2008 PCV13 11/19/2014 PPSV23 12/17/2009 RZV (SHINGRIX) 2019, 9,05/24/2018,2018 SARS-COV-2 (COVID-19) - MODERNA(Discontinued) 12/12/2020 Td (Adult), adsorbed 10/05/2003 Tdap 11/21/2013 [...] How often do you attend voodoo or restorationism serv ices? Never 12/06/2020 Do you belong [...] and heating? Not hard at all 12/06/2020 [facility] - [...] place to sleep or slept in a snf (including now)? No 12/06/2020 Nutrition Answer Date [...] PHQ-2) 02/15/2023 Fall Risk Screen (Annual) 02/15/2023 COVID-19 Vaccine (8 2022-2 4 season) 2023 12/03/2022, 06/30/2022, 10/29/2021, Additional history exists DTaP,Tdap,and Td Vaccines (2 - Td or Tdap) 11/22/2023 11/21/2013, 10/05/2003 Pneumococcal vaccine (65+ years) Completed 11/20/19, 12/17/2009 Zoster Vaccines Completed 2019, 08/2018, 05/24/2018, Additional history exists Influenza Vaccine Completed 12/09/2022, , 12/11/2020, Additional history exists
--- OUTSIDE RECORDS SUMMARY | 2023-07-15 14:49 | XMS_ITS | Referral Summary ---
Author Organization [facility] Address [address] [place] [address] Care Team Providers Care Sap Crm Developer Name Role Phone Unavailable Primary Care Provider Unavailabl e Source Comments Patient records contain information from all sites at [facility]. For routine questions regarding patient records, call [phone] during business hours, M-F 8:00 AM - 5:00 PM Central Time. Record requests for emergency care only can be directed to [phone] at any time.[facility] Allergies Active Allergy Reactions Criticality Noted Date [...] week 12/06/2020 How often do you attend holiness or spiritism serv ices? Never 12/06/2020 Do you belong to any clubs o r organizations such as holiness groups, unions, fraternal or athletic groups, or [...] at all 12/06/2020 [facility] - Occupational Stress Questionnaire Answer [...] place to sleep or slept in a fpc (including now)? No 12/06/2020 Nutrition Answer Date [...]
--- OUTSIDE RECORDS SUMMARY | 2023-07-15 14:49 | XMS_ITS | Clinical Summary ---
Author Organization [facility] Address [place], [place] [address] Care Team Providers Care Train Conductor Name Role Phone Jono Ross MD Primary Care Provider [phone] Allergies No known active allergies Medications Medication Sig Dispensed Refills Start Date End Date Status LIPITOR 10 MG TAB take 1 tablet (10 mg) by oral route once daily 30 0 10/20/2006 Active NEXIUM 40 MG CAP take 1 capsule (40 mg) by oral route once daily 30 0 10/20/2006 Active Active Problems Problem Noted Date Diagnosed Date Sensorineural hearing loss, bilateral 06/23/2011 Social History Tobacco Use Types Packs/Day Years [...] 12/12/2020, 05/03/2020, 04/05/2020 Influenza for age 65+ 10/17/2023 Care Teams Train Conductor Relationship Specialty Start Date End Date Jono Ross MD [address] [place] [address] PCP - General 06/23/11
--- OUTSIDE RECORDS SUMMARY | 2023-07-15 14:49 | XMS_ITS ---
Author Organization [facility] Address [address] [place] [address] Care Team Providers Care Spark Tester Name Role Phone Unavailable Unavailable Unavailable Surgery Details Not on file Complications Check Surgery Details section. Procedure Estimated Blood Loss Check Surgery Details section. Procedure Findings Check Surgery Details section. Procedure Specimens Taken Check Surgery Details section.
--- NOTE | 2023-07-15 15:00 | CRLHL7_ITS ---
For Patients: As a result of the Century Cures Act, medical imaging exams and procedure reports are released immediately into your electronic medical record. You may view this report before your referring provider. If you have questions, please contact your health care provider. INDICATION: Right upper quadrant pain TECHNIQUE: Conventional two-dimensional grayscale ultrasound of the right upper quadrant. COMPARISON: None. FINDINGS: No gallstone is evident. Gallbladder sludge is noted. No gallbladder wall thickening or pericholecystic fluid is demonstrated. The patient is reportedly not tender over the gallbladder. No biliary ductal dilation is evident. The common bile duct measures 2 mm. The liver is normal in size and shape. A 1.3 cm left lobe cyst is noted. The pancreas is obscured by gas. The right kidney is unremarkable. The abdominal aorta is obscured by gas as is the IVC. IMPRESSION: 1. Gallbladder sludge. No stone evident. 2. 1.3 cm left hepatic lobe cyst. 3. Pancreas obscured by gas. Dictated by Samy Rodriguez MD @ 07/17/2023 9:10:41 AM (Electronically Signed)
== END 2023-07-15 14:46 | disposition home or self-care (01) ==
LOC: US 14:46
PROVIDERS: PCP Internal Medicine; Visit Provider Internal Medicine
DX: R10.11 Right upper quadrant pain (principal); K76.89 Other specified diseases of liver; R19.8 Other specified symptoms and signs involving the digestive system and abdomen
CPT/HCPCS: 76705

== ENCOUNTER 2023-07-24 10:43 | Emergency (ER) | payer MEDICARE, BC, SELFPAY ==
[2023-07-24 10:45] VITALS: BP 160/85; PULSE 100; RESP 18; TEMP 36.6; O2SAT 97; BMI 25.8
--- NOTE | 2023-07-24 11:16 | CRLHL7_ITS ---
For Patients: As a result of the Century Cures Act, medical imaging exams and procedure reports are released immediately into your electronic medical record. You may view this report before your referring provider. If you have questions, please contact your health care provider. INDICATION: LOWER ABD PAIN. TECHNIQUE: CT abdomen and pelvis acquired with 91 cc Isovue 370 IV contrast. COMPARISON: None. FINDINGS: Lower chest: Unremarkable. Liver: Unremarkable. Normal in size and attenuation. No suspicious masses. Gallbladder and bile ducts: Unremarkable. No stones or inflammation. No biliary dilatation. Pancreas: Unremarkable. No mass or inflammation. Spleen: Unremarkable. Normal in size. No masses. Adrenal glands: Unremarkable. No nodules. Kidneys: Unremarkable. No suspicious masses, stones, or hydronephrosis. GI tract: Unremarkable. Normal in caliber. No sign of mass or inflammation. Normal appendix. Vasculature: Abdominal aorta is normal in caliber. Mesenteric arteries are patent. Mild calcific atherosclerosis. Lymph nodes: No lymphadenopathy. Peritoneum/Abdominal Wall: Lower pelvic wall mesh, likely related to hernia repair. No sign of mass or infiltration. No free air or significant free fluid. Pelvis: Prostatomegaly indenting the base of the bladder. Bones: Unremarkable for age. IMPRESSION: No acute intraabdominal process identified. Please note that all CT scans at this facility use dose modulation, iterative reconstruction, and/or weight-based dosing when appropriate to reduce radiation dose to as low as reasonably achievable. Dictated by Addis Steiner MD @ 07/24/2023 2:00:23 PM (Electronically Signed)
--- NOTE | 2023-07-24 11:28 | ED.GENADULT ---
HPI - General Adult General Date Seen: 07/24/23 Chief complaint: Abdominal Pain Stated complaint: Lower abdominal pain Time Seen by Provider: 07/24/23 11:02 Source: patient, RN notes reviewed and old records reviewed Mode of arrival: ambulatory Limitations: no limitations History of Present Illness HPI narrative: Patient is a 77-year-old male here with his for evaluation of abdominal pain. He tells me that he has had some degree of discomfort for many months but it is worse today. He describes it as being in the lower abdomen bilaterally. He does describe some constipation, urinary frequency but no dysuria. No fevers, nausea or vomiting. No significant changes in weight, appetite has been okay. He has had a recent colonoscopy and endoscopy. CT scan a year ago showed diverticulitis, he does not recall if that feels similar. He has previously been noted to have gallstones, but is not describing any upper abdominal pain. Denies abdominal surgeries. Does not smoke or drink. Here today with his . Related Data Home Medications ?Medication ?Instructions ?Recorded ?Confirmed multivitamin (Multiple Vitamins 1 tab PO QAM 08/13/21 07/24/23 tablet) Allergies Allergy/AdvReac Type Severity Reaction Status Date / Time Molds & Smuts Allergy Unknown Uncoded 06/29/23 10:06 Review of Systems Status of ROS: Reports: 10 or more systems reviewed and unremarkable except as noted in History and below [facility] Medical History Hearing loss ?H91.90 - Unspecified hearing loss, unspecified ear (ICD-10) Bilateral knee pain ?M25.561 - Pain in right knee (ICD-10) ?M25.562 - Pain in left knee (ICD-10) Change in bowel function ?R19.8 - Other specified symptoms and signs involving the digestive system and abdomen (ICD-10) Rash ?R21 - Rash and other nonspecific skin eruption (ICD-10) Hyperlipidemia (12/10/08) ?E78.5 - Hyperlipidemia, unspecified (ICD-10) Weight decrease ?R63.4 - Abnormal weight loss (ICD-10) Diverticulitis ?K57.92 - Diverticulitis of intestine, part unspecified, without perforation or abscess without bleeding (ICD-10) Acute meniscal tear of knee ?S83.209A - Unspecified tear of unspecified meniscus, current injury, unspecified knee, initial encounter (ICD-10) Chronic cough ?R05.3 - Chronic cough (ICD-10) Kidney calculus (12/10/08) ?N20.0 - Calculus of kidney (ICD-10) Hypertension (12/10/08) ?I10 - Essential (primary) hypertension (ICD-10) Gastroesophageal reflux (12/10/08) ?K21.9 - Gastro-esophageal reflux disease without esophagitis (ICD-10) Dupuytren's contracture of left hand ?M72.0 - Palmar fascial fibromatosis [Dupuytren] (ICD-10) Neuropathy of left ulnar nerve at wrist ?G56.22 - Lesion of ulnar nerve, left upper limb (ICD-10) Obesity with body mass index greater than 30 ?E66.9 - Obesity, unspecified (ICD-10) Laceration of scalp ?S01.01XA - Laceration without foreign body of scalp, initial encounter (ICD-10) Kidney calculus (12/10/08) ?N20.0 - Calculus of kidney (ICD-10) Knee pain ?M25.569 - Pain in unspecified knee (ICD-10) Allergies ?T78.40XA - Allergy, unspecified, initial encounter (ICD-10) Thrush ?B37.0 - Candidal stomatitis (ICD-10) BPH (benign prostatic hyperplasia) ?N40.0 - Benign prostatic hyperplasia without lower urinary tract symptoms (ICD-10) Sacroiliac pain ?M53.3 - Sacrococcygeal disorders, not elsewhere classified (ICD-10) Surgical History History of ear surgery (~1970) ?Z98.890 - Other specified postprocedural states (ICD-10) H/O cataract extraction ?Z98.49 - Cataract extraction status, unspecified eye (ICD-10) Status post bilateral hernia repair ?Z98.890 - Other specified postprocedural states (ICD-10) ?Z87.19 - Personal history of other diseases of the digestive system (ICD-10) S/P trigger finger release (07/31/21) ?Z98.890 - Other specified postprocedural states (ICD-10) Family History Father Alcohol dependence Mother No problems noted. Social History Narrative: Patient is retired and lives with Marky - she would be medical decision maker if needed. Two adult children in [place]. Rolando requests full code status, but never wants to be alive on a machine for any extended period of time. Former smoker, quit in 1985 with an approximate 20 pack year history. Drinks 3-4 glasses of wine per night, no history of EtOH withdrawal. Smoking Status: Former smoker Do you use any of these nicotine containing products: None Second hand tobacco smoke exposure: No How often do you have a drink containing alcohol: 4 or more times a week Alcohol type: wine How many standard drinks containing alcohol do you have on a typical day: 3 or 4 How often do you have six or more drinks on one occasion: Never AUDIT-C Alcohol total score: 5 Non-prescribed substance use: denies use Caffeine: Yes Little interest or pleasure in doing things: not at all Feeling down, depressed, or hopeless: not at all service: No Exam Narrative: Exam Narrative: Vital signs as noted above. In general, an alert, well-appearing patient. Head: Normocephalic, atraumatic. Eyes: Pupils are equal reactive. Extraocular movements are full. Conjunctivae are normal. ENT: Mucous membranes are moist. Delete Neck: Supple without lymphadenopathy. Heart: Regular rate and rhythm. No murmur or rub. Lungs: Clear bilaterally. No increased work of breathing, crackles or wheezes. Abdomen: Soft and nontender. No rebound guarding rigidity. Extremities: Well perfused. No edema. No calf tenderness. Pulses intact. Neurologic: Patient is alert and oriented to person and place. Speech is fluent. Face is symmetric. Moves all extremities equally. Affect: Normal. Skin: Warm and dry. Well perfused. Const: Vital Signs, click to edit/add: Vital Signs - 24 hr 07/24/23 10:45 07/24/23 12:28 07/24/23 12:30 Temperature 97.9 F Pulse Rate 82 84 Pulse Rate [Right Pulse Oximeter] 100 Respiratory Rate 18 Blood Pressure [Ri ght Upper Arm] 160/85 H Pulse Oximetry 97 98 98 Oxygen Delivery Me thod Room Air Documenting provider has reviewed patient's vital signs: yes Course Course ED Course: Acute on chronic lower abdominal pain. Diagnostic considerations include constipation, colitis, bowel obstruction, diverticulitis, kidney stone or urinary tract infection, prostatitis among others. Given his age and history of think it is reasonable to repeat a CT scan today to look for diverticulitis or other acute findings. Labs pending. Declines need for pain medications at this time. Abdominal exam is benign, I do not anticipate an acute surgical emergency. Workup here is unrevealing. All of his labs are normal including a CBC, metabolic panel, lactate, CRP and urinalysis. CT scan of the abdomen and pelvis with contrast read by Radiology is negative, I reviewed as well and do not see any abnormalities. I have discussed this with the patient and his , they continue to wonder what is causing his abdominal pain. Advised that I do not have an explanation at this time, but with recent colonoscopy, endoscopy and negative CT we have ruled out the dangerous causes. Would recommend continued follow-up as an outpatient for further evaluation. Return to the ER for significant changes such as fevers, vomiting, bloody stools. Vital Signs Vital signs: Initial Vital Signs Temperature 97.9 F 07/24/23 10:45 Temperature Source Temporal Artery Scan 07/24/23 10:45 Pulse Rate 100 07/24/23 10:45 Respiratory Rate 18 07/24/23 10:45 Blood Pressure 160/85 H 07/24/23 10:45 Blood Pressure Mean 110 H 07/24/23 10:45 Blood Pressure Position Sitting 07/24/23 10:45 Pulse Oximetry 97 07/24/23 10:45 Oxygen Delivery Method Room Air 07/24/23 10:45 Vital Signs Temperature 97.9 F 07/24/23 10:45 Pulse Rate 100 07/24/23 10:45 Respiratory Rate 18 07/24/23 10:45 Blood Pressure 160/85 H 07/24/23 10:45 Pulse Oximetry 97 07/24/23 10:45 Oxygen Delivery Method Room Air 07/24/23 10:45 Temperature 97.9 F 07/24/23 10:45 Pulse Rate 84 07/24/23 12:30 Respiratory Rate 18 07/24/23 10:45 Blood Pressure 160/85 H 07/24/23 10:45 Pulse Oximetry 98 07/24/23 12:30 Oxygen Delivery Method Room Air 07/24/23 10:45 Medications Administered Medications: Discontinued Medications Generic Name Dose Route Start Last Admin Trade Name Kevon PRN Reason Stop Dose Admin Sodium Chloride 500 mls @ 500 mls/hr 07/24/23 11:20 07/24/23 13:30 0.9 % Sodium Chloride 500 Ml IV 07/24/23 12:19 Infused .Q1H ONE Infusion Medical Decision Making Lab Data Labs: Lab Results 07/24/23 07/24/23 Range/Units 11:25 11:53 WBC 7.48 (4.50-11.00) K/uL RBC 4.90 (4.30-5.90) m/uL Hgb 14.8 (13.5-17.5) gm/dL Hct 44.2 (37.0-53.0) % MCV 90 (80-100) fL MCH 30 (26-34) pg MCHC 34 (32-36) gm/dL RDW Coeff of [place] 12.9 (11.5-15.5) % Plt Count 303 (140-440) K/uL Neut % (Auto) 67.2 (42.0-72.0) % Lymph % (Auto) 22.3 (20-44) % [place] % (Auto) 9.8 (0.0-11.0) % Eos % (Auto) 0.3 (0.0-7.0) % Baso % (Auto) 0.1 (0.0-3.0) % Neut # (Auto) 5.03 (1.7-7.0) K/uL Lymph # (Auto) 1.67 (0.90-2.90) K/uL [place] # (Auto) 0.70 (0.00-0.90) K/UL Eos # (Auto) 0.02 (0.00-0.50) K/uL Baso # (Auto) 0.01 (0.00-0.30) K/uL Abs Immat Gran (auto) 0.02 (0.00-0.30) K/uL Imm/Tot Granulo (auto) 0.3 % Sodium 134 L (135-149) mmol/L Potassium 3.7 (3.6-5.1) mmol/L Chloride 100 (96-114) mmol/L Carbon Dioxide 27 (20-32) mmol/L Anion Gap 7 (7-15) mEq/L BUN 11 (7-30) mg/dL Creatinine 0.5 (0.5-1.5) mg/dL Estimated Creat Clear 64.84 Estimated GFR 104 ml/min Glucose 103 (60-115) mg/dL Lactate 0.8 (0.5-1.9) mmol/L Calcium 8.8 (8.4-10.6) mg/dL C-Reactive Protein < 0.5 L (0.5-1.0) mg/dL Urine Color Yellow (Yellow) Urine Appearance Clear (Clear) Urine pH 7.0 (5.0-8.5) Ur Specific [place] 1.010 (1.000-1.030) Urine Protein Negative (Negative) Urine Glucose (UA) Negative (Negative) Urine Ketones Negative (Negative) Urine Blood Negative (Negative) Urine Nitrite Negative (Negative) Urine Bilirubin Negative (Negative) Urine Urobilinogen 0.2 (0.2-1.0) Ur Leukocyte Esterase Trace A (Negative) Urine RBC 0-2 (0-2) Urine WBC 2-5 (0-5) Ur Squamous Epith Cells Few (None-Few) Urine Bacteria None (None) Discharge Plan Discharge Clinical Impression: Abdominal pain, chronic, bilateral lower quadrant Patient Disposition: Home, Self-Care Condition: Stable Instructions: Chronic Abdominal Pain (DC) Additional Instructions: All of your test today are normal. Your CT scan does not show evidence of infection, blockage, or severe constipation. Your urine is normal, and all of your blood tests are normal. I do not have an explanation for your abdominal pain. I would recommend continued follow-up with your primary doctor for further evaluation is needed. Tylenol as needed for pain. Here for new symptoms such as fever, vomiting, bloody stools, etcetera, return any time to the emergency department. Prescriptions: No Action multivitamin [Multiple Vitamins] Tablet 1 tab PO QAM Follow Up/Referrals: Jono Ross MD [Primary Care Provider] - Stand Alone Forms: [employer] Info Instructions
[2023-07-24 11:42] LABS: Appearance Urine Clear (Clear); Bilirubin Urine Negative (Negative); Blood Urine Negative (Negative); Color Urine Yellow (Yellow); Glucose Urine Negative (Negative); Ketones Urine Negative (Negative); Leukocyte Esterase Urine Trace (Negative); Nitrite Urine Negative (Negative); Protein Urine Negative (Negative); Urobilinogen Urine 0.2 (0.2-1.0)
[2023-07-24 11:50] LABS: RBC Urine 0-2 (0-2); Squamous Epithelial Cell Urine Few (None-Few)
[2023-07-24 12:03] LABS: Lactate Sepsis w/Reflex* 0.8 mmol/L (0.5-1.9)
[2023-07-24 12:04] LABS: Basophils Absolute Auto 0.01 K/uL (0.00-0.30); Basophils Percent Auto 0.1 % (0.0-3.0); Eosinophils Absolute Auto 0.02 K/uL (0.00-0.50); Eosinophils Percent Auto 0.3 % (0.0-7.0); Hematocrit 44.2 % (37.0-53.0); Hemoglobin* 14.8 gm/dL (13.5-17.5); Immature Granulocytes Abs Auto 0.02 K/uL (0.00-0.30); Immature Granulocytes Pct Auto 0.3 %; Lymphocytes Absolute Auto 1.67 K/uL (0.90-2.90); Lymphocytes Percent Auto 22.3 % (20-44); Mean Corpuscular HGB Conc 34 gm/dL (32-36); Mean Corpuscular Hemoglobin 30 pg (26-34); Mean Corpuscular Volume 90 fL (80-100); Monocytes Percent Auto 9.8 % (0.0-11.0); Neutrophils Absolute Auto 5.03 K/uL (1.7-7.0); Neutrophils Percent Auto 67.2 % (42.0-72.0); Platelet Count* 303 K/uL (140-440); RDW Coefficient of Variation % 12.9 % (11.5-15.5); White Blood Count* 7.48 K/uL (4.50-11.00)
[2023-07-24 12:05] LABS: Slide Review Reflex No
[2023-07-24] MEDS: 0.9 % SODIUM CHLORIDE 500 ML 500 ML IV (12:16)
--- OUTSIDE RECORDS SUMMARY | 2023-07-24 12:17 | XMS_ITS | Clinical Summary ---
Author Organization [facility] Address [address] [place] [address] Care Team Providers Care Metal Lather Name Role Phone Unavailable Primary Care Provider Unavailabl e Source Comments Patient records contain information from all sites at [facility]. For routine questions regarding patient records, call [phone] during business hours, M-F 8:00 AM - 5:00 PM Central Time. Record requests for emergency care only can be directed to [phone] at any time.[facility] Allergies Active Allergy Reactions Criticality Noted Date [...] week 12/06/2020 How often do you attend amish or jehovah's witness serv ices? Never 12/06/2020 Do you belong to any clubs o r organizations such as amish groups, unions, fraternal or athletic groups, or [...] and heating? Not hard at all 12/06/2020 [facility] - Occupational Stress [...] place to sleep or slept in a long-term (including now)? No 12/06/2020 Nutrition Answer Date [...]
--- OUTSIDE RECORDS SUMMARY | 2023-07-24 12:17 | XMS_ITS | Referral Summary ---
Author Organization [facility] Address [address] [place] [address] Care Team Providers Care Civil Engineer Land Development Name Role Phone Unavailable Primary Care Provider Unavailabl e Source Comments Patient records contain information from all sites at [facility]. For routine questions regarding patient records, call [phone] during business hours, M-F 8:00 AM - 5:00 PM Central Time. Record requests for emergency care only can be directed to [phone] at any time.[facility] Allergies Active Allergy Reactions Criticality Noted Date [...] week 12/06/2020 How often do you attend christianity or christianity serv ices? Never 12/06/2020 Do you belong to any clubs o r organizations such as christianity groups, unions, fraternal or athletic groups, or [...] and heating? Not hard at all 12/06/2020 [facility] - [facility]ational Stress Questionnaire Answer Date [...] place to sleep or slept in a usp (including now)? No 12/06/2020 Nutrition Answer Date [...]
--- OUTSIDE RECORDS SUMMARY | 2023-07-24 12:17 | XMS_ITS | Clinical Summary ---
Author Organization [facility] Address [place], [place] [address] Care Team Providers Care Sharepoint Consultant Name Role Phone Jono Ross MD Primary Care Provider [phone] Allergies No known active allergies Medications Medication [...] Influenza for age 65+ 10/17/2023 Care Teams Sharepoint Consultant Relationship Specialty Start Date End Date Jono Ross MD [address] [place] [address] PCP - General 06/23/11
--- OUTSIDE RECORDS SUMMARY | 2023-07-24 12:17 | XMS_ITS ---
Author Organization [facility] Address [address] [place] [address] Care Team Providers Care Efficiency Clerk Name Role Phone Unavailable Unavailable Unavailable Surgery Details Not on file Complications Check Surgery Details section. Procedure Estimated Blood Loss Check Surgery Details section. Procedure Findings Check Surgery Details section. Procedure Specimens Taken Check Surgery Details section.
[2023-07-24 12:28] VITALS: PULSE 82; O2SAT 98
[2023-07-24 12:30] VITALS: PULSE 84; O2SAT 98
[2023-07-24 12:31] LABS: Chloride* 100 mmol/L (96-114); Potassium* 3.7 mmol/L (3.6-5.1); Sodium* 134 mmol/L (135-149)
[2023-07-24 12:34] LABS: Anion Gap 7 mEq/L (7-15); Blood Urea Nitrogen* 11 mg/dL (7-30); Carbon Dioxide* 27 mmol/L (20-32); Creatinine* 0.5 mg/dL (0.5-1.5); Est. Creatinine Clearance* 64.84; Estimated Glomerular Filt Rate 104 ml/min
[2023-07-24 12:35] LABS: Calcium* 8.8 mg/dL (8.4-10.6); Glucose* 103 mg/dL (60-115)
[2023-07-24 12:40] LABS: C Reactive Protein* < 0.5 mg/dL (0.5-1.0)
== END 2023-07-24 14:12 | disposition home or self-care (01) ==
PROVIDERS: Emergency Provider Emergency Medicine; PCP Internal Medicine
DX: R10.32 Left lower quadrant pain (principal); R10.31 Right lower quadrant pain; G89.29 Other chronic pain
CPT/HCPCS: 36415; 74177; 80048; 81001; 83605; 85025; 86140; 87086; 94761; 96360; 99284; 99285; J7030; Q9967

== ENCOUNTER 2023-12-03 14:29 | Outpatient (CLI) | payer MEDICARE, BC, SELFPAY ==
--- OUTSIDE RECORDS SUMMARY | 2023-12-03 14:32 | XMS_ITS | Encounter Summary ---
Author Organization [facility] Address [address] [place] [id number] Care Team Providers Care Billing Coordinator Name Role Phone Unavailable Primary Care Provider Unavailabl e Reason for Referral * Outpatient (Routine) - Closed Specialty Diagnoses / Procedures Referred By Contac t Referred To Contact Diagnoses Pain Knee Right Pain Knee Left Procedures EMG Dona Pina M.D. [address] [place] [phone] Phone: tel: fax: [facility] Referral ID Status Reason Start Date Expiration Date Visits Re quested Visits Authorized [id number] Closed 11/10/2023 11/09/2024 1 1 Reason for Visit * Outpatient (Routine) - Closed Specialty Diagnoses / Procedures Referred By Landon mccauley Referred To Contact Diagnoses Pain Knee Right Pain Knee Left Procedures EMG Dona Pina M.D. 200 [place] [address] Phone: tel: fax: [facility] Referral ID Status Reason Start Date Expiration Date Visits Re quested Visits Authorized [id number] Closed 11/10/2023 11/09/2024 1 1 Encounter Details Date Type Department Care Team (Latest Contact Info) Description 12/01/2023 9:00 AM CDT - 12/01/2023 11:59 PM CDT Hospital Encounter Department of Neurology in [place], [place] [address] [place] [phone] Dona Pina M.D. [address] [place] [phone] Pain Knee Right; Pain Knee Left Discharge Disposition: Home or Self Care Social [...] week 12/06/2020 How often do you attend zoroastrian or sikh serv ices? Never 12/06/2020 Do you belong to any clubs o r organizations such as zoroastrian groups, unions, fraternal or athletic groups, or [...] and heating? Not hard at all 12/06/2020 [facility] - Occupational Stress [...] place to sleep or slept in a care home (including now)? 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 albuterol 90 mcg/actuation inhaler 11/04/2020 budesonide (PULMICORT) 0.5 mg/2 mL nebulizer solution Mix 1 ampule budesonide in 8 oz saline solution. Irrigate 4 oz into each nostril twice daily. 120 mL 11 01/29/2023 6:26 AM SLP TEACHER 06/02/2022 hydroCHLOROthiaz dre (HYDRODIURIL) 25 mg tablet 09/24/2020 multivitamin tablet Take 1 tablet by mouth daily. 08/13/2021 nystatin (MYCOSTATIN) 100,000 unit/mL suspension 11/25/2020 documented as of this encounter Plan of Treatment Upcoming Encounters Date Type Department Care Team (Latest Contact Info) Description 12/09/2023 7:00 AM CDT Clinical Communication Virtual Review in [place], [place] 200 [place] [phone] 12/14/2023 8:30 AM CDT Telemedicine Department of Orthopedic Surgery in [place], [place] [address] [place] [phone] Dona Pina M.D. [address] [place] [phone] documented as of this encounter Procedures Procedure Name Priority Date/Time Associated Diagnosis Comments EMG Routine 12/01/2023 9:00 AM CDT Pain Knee Right Pain Knee Left documented in this encounter Results * EMG (12/01/2023 9:00 AM CDT) 12/01/2023 9:15 AM CDT Narrative EMG - 12/01/2023 11:58 AM CDT Table formatting from the original result was not included. 01-Dec-2023 ? Electromyography ? Final Report Study Number: 1 EMG Vessel Operator: Zaid Terrazas 127 or [phone] Referred by: DONA PINA (127 or [phone]) Referred for: Radiculopathy Referral Code: RX: 001 SUMMARY: Prior to starting the procedure, the patient's identity was verified, pertinent available records were reviewed, the nature of the procedure was explained, the appropriate sites of the exam were confirmed directly with the patient, and a pre-procedure pause was performed for final verification of all of the above. ?? Nerve conduction studies of the lower limbs were normal. ??Needle examination of the left lower limb was normal. CLINICAL INTERPRETATION: This is a normal study. ??There is no electrophysiologic evidence of a length-dependent large fiber peripheral neuropathy or left lumbosacral radiculopathy. N. Seven (127 or [phone])/SMB NERVE CONDUCTIONS ??Record Rep ?? Normal ??Normal Distal Normal F-Wave F-Wave Temp Nerve Type Site Stim Side Amp Amp CV CV Lat Lat Lat Est (??C) Fibular Motor EDB ??L 2.2 (> 2.0) 42 (> 41) 5.2 (< 6.6) ?? 29.9 Fibular Motor EDB ??R 2.2 (> 2.0) 42 (> 41) 5.7 (< 6.6) ?? 29.5 Tibial Motor AH ??L 5.8 (> 4.0) 41 (> 40) 4.8 (< 6.1) ?? 30.0 Sural Sensory Ankle ??L 6 (> 0.0) ??(> 40) 4.4 (< 4.5) ?? 31.4 NEEDLE EMG ??Ins Spont ??MUP ??Recruitment ??Duration ??Amplitude ??Phases ?? Muscle Side Act Fib Fasc Normal Activ Reduced Rapid Long Short High Low % Turns Gluteus scout L NL 0 0 NL ? Tensor fasciae latae L NL 0 0 NL ? Vastus medialis L NL 0 0 NL ? Gastrocnemius (medial head) L NL 0 0 NL ? Tibialis anterior L NL 0 0 NL ? This interpretation has been electronically signed: Zaid Terrazas M.D. at 12/01/2023 11:56:05 AM CDT Procedure Note Milind Terrazas M.D. - 12/01/2023 01-Dec-2023 Electromyography Final Report Study Number: 1 EMG Vessel Operator: Zaid Terrazas 127 or [phone] Referred by: DONA PINA (127 or [phone]) Referred for: Radiculopathy Referral Code: RX: 001 SUMMARY: Prior to starting the procedure, the patient's identity wasverified, pertinent available records were reviewed, the nature of theprocedure was explained, the appropriate sites of the exam were confirmeddirectly with the patient, and a pre-procedure pause was performed forfinal verification of all of the above. Nerve conduction studies of the lower limbs were normal. Needleexamination of the left lower limb was normal. CLINICAL INTERPRETATION: This is a normal study. There is noelectrophysiologic evidence of a length-dependent large fiber peripheralneuropathy or left lumbosacral radiculopathy. N. Mk (127 or [phone])/SMB NERVE CONDUCTIONS Record Rep Normal Normal Distal Normal F-Wave F-Wave Temp Nerve Type Site Stim Side Amp Amp CV CV Lat Lat Lat Est (??C) Fibular Motor EDB L 2.2 (> 2.0) 42 (> 41) 5.2 (< 6.6) 29.9 Fibular Motor EDB R 2.2 (> 2.0) 42 (> 41) 5.7 (< 6.6) 29.5 Tibial Motor AH L 5.8 (> 4.0) 41 (> 40) 4.8 (< 6.1) 30.0 Sural Sensory Ankle L 6 (> 0.0) (> 40) 4.4 (< 4.5) 31.4 NEEDLE EMG Ins Spont MUP Recruitment Duration Amplitude Phases Muscle Side Act Fib Fasc Normal Activ Reduced Rapid Long Short High Low %Turns Gluteus scout L NL 0 0 NL Tensor fasciae latae L NL 0 0 NL Vastus medialis L NL 0 0 NL Gastrocnemius (medial head) L NL 0 0 NL Tibialis anterior L NL 0 0 NL This interpretation has been electronically signed: Zaid Terrazas M.D. at 12/01/2023 11:56:05 AM CDT us Dona Pina M.D. NEUROLOGY ORDERABLES Edited Re delphine - Final EMG documented in this encounter Visit Diagnoses Diagnosis Pain Knee Right Pain Knee Left documented in this encounter
--- OUTSIDE RECORDS SUMMARY | 2023-12-03 14:32 | XMS_ITS | Encounter Summary ---
Author Organization [facility] Address [address] [place] [address] Care Team Providers Care [employer] Name Role Phone Unavailable Primary Care Provider Unavailabl e Reason for Referral * Outpatient (Routine) - Authorized Specialty Diagnoses / Procedures Referred By Contac t Referred To Contact Video Medicine Diagnoses Pain Knee Right Pain Knee Left Dona Pina M.D. [address] [place] [address] Phone: tel: fax: [facility] Referral ID Status Reason Start Date Expiration Date V isits Requested Visits Authorized [id number] Authorized 11/10/2023 05/11/2025 1 1 Scheduling Instructions After MRIs,EMG and labs * Outpatient (Routine) - Closed Specialty Diagnoses / Procedures Referred By Contac t Referred To Contact Diagnoses Pain Knee Right Pain Knee Left Procedures EMG Dona Pina M.D. [address] [place] [address] Phone: tel: fax: [facility] Referral ID Status Reason Start Date Expiration Date Visits Re quested Visits Authorized [id number] Closed 11/10/2023 11/09/2024 1 1 * MRI/CAT/PET Scan (Routine) - Closed Specialty Diagnoses / Procedures Referred By Contac t Referred To Contact Radiology Diagnoses Pain Knee Right Pain Knee Left Procedures MR Knee Left without IV Contrast Dona Pina M.D. [address] [place] [address] Phone: tel: fax: [facility] Referral ID Status Reason Start Date Expiration Date Visits Re quested Visits Authorized [id number] Closed 11/10/2023 11/09/2024 1 1 * MRI/CAT/PET Scan (Routine) - Closed Specialty Diagnoses / Procedures Referred By Landon mccauley Referred To Contact Radiology Diagnoses Pain Knee Right Pain Knee Left Procedures MR Knee Right without IV Contrast [place] [address] Phone: tel: fax: [facility] Referral ID Status Reason Start Date Expiration Date Visits Re quested Visits Authorized [id number] Closed 11/10/2023 11/09/2024 1 1 Reason for Visit * Reason Comments Pain Pain * Outpatient (Routine) - Closed Specialty Diagnoses / Procedures Referred By Landon mccauley Referred To Contact Orthopedic Surgery Diagnoses Pain Knee Right Pain Knee Left Jono Ross M.D. [address] [place] [address] Phone: tel: fax: [facility] Referral ID Status Reason Start Date Expiration Date Visits Re quested Visits Authorized [id number] Closed 09/16/2023 03/17/2025 1 1 Encounter Details Date Type Department Care Team (Latest Contact Info) Description 11/10/2023 10:30 AM CDT Comprehensive Visit Department of Orthopedic Surgery in [place], [place] [address] [place] [phone] Dona Pina M.D. [address] [place] [phone] Pain Knee Right; Pain Knee Left Social History Tobacco Use Types Packs/Day Years [...] week 12/06/2020 How often do you attend alevism or roman catholic serv ices? Never 12/06/2020 Do you belong to any clubs o r organizations such as alevism groups, unions, fraternal or athletic groups, or [...] and heating? 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 - 11/10/2023 10:30 AM CDT REQUESTING PROVIDER Jono Ross M.D. REASON FOR CONSULT bilateral knee pain HISTORY OF PRESENT ILLNESS Rolando Salazar is a 77 y.o. male who presents today with his for evaluation of bilateral knee pain. He points to the patellas as the main location of pain. He states that this began many year(s)ago. He was an avid jogger for 35 years, and now does low-impact exercises. He rates his pain 10/10at its worst and 1/10 at its best. He states the pain is mostly achy, but occasionally sharp and is worse with sitting or standing for long periods of time. The pain is improved with riding his recumbent bike. He has swelling, and some catching with walking. He has occasional numbness in feet. His right leg is larger than his left leg. As I talked to him more it is interesting he is having more difficulty with standing or sitting. Itis less with walking. If he moves he is better. He did have an MRI remotely 1 year ago of just the right knee. And it was fairly benign. He responds very well to steroid but it really only last 3 months. He has had several injections. He also uses a cane for balance but he does a quite that with his knee. 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 albuterol 0.63 mg/3 mL nebulizer solution Inhale 0.63 mg by nebulization every 6 (six) hours as needed for wheezing. albuterol 90 mcg/actuation inhaler budesonide (PULMICORT) 0.5 mg/2 mL nebulizer solution Mix 1 ampule budesonide in 8 oz saline solution. Irrigate 4 oz into each nostril twice daily. hydroCHLOROthiazide (HYDRODIURIL) 25 mg tablet nystatin (MYCOSTATIN) 100,000 unit/mL suspension ALLERGIES Allergies Allergen Reactions Mold Anaphylaxis Cigarette Smoke Other (see comments) Smoke environmental-sneezing and coughing REVIEW OF SYSTEMS I have briefly reviewed the Review of Systems as noted on the Health history form. I am only responding to those symptoms which are directly relevant to the specific indication for my consultation. Irecommend that the patient follow up with their primary or referring provider to pursue any other symptoms which may be of concern. Pertinent items are noted in HPI; all other review of systems was negative. OBJECTIVE There were no vitals taken for this visit. PHYSICAL EXAM GEN: Alert and oriented. No acute distress. Well-developed, well-nourished individual. MENTAL: Appropriate mood and affect. EYES: No redness appreciated. EAR, NOSE, THROAT: Atraumatic, normocephalic. Moist membranes. Anicteric sclera CARD: Extremities warm and well perfused. No significant lower extremity edema. RESP: No dyspnea on room air SKIN: Grossly negative for lesions or skin breakdown GAIT: antalgic gait, in fact it is almost shuffling and appears parkinsonian. He also will have repeated motions of his right wrist that he attributes to a bracelet. NEURO: Strength: Major muscle groups of the bilateral lower limbs have normal and symmetric muscle strength, bulk, and tone. Sensation: Grossly intact to light touch throughout lower extremities Reflexes: Bilateral lower limb muscle stretch reflexes physiologic and symmetric. Plantar responsesdown going bilaterally. Cranial nerves: Cranial nerve function grossly intact bilaterally MUSCULOSKELETAL: bilateral Knee: No malalignment. No obvious joint effusion. Tenderness to palpation at the patellofemoral joint lines. Knee range of motion from 0 to 90. No patellar apprehension. Knee stability testing normal with intact end point on Hermila, posterior drawer, varus and valgus stress. No significant pain with knee hyperflexion and extension bounce test. Girish's and meniscal grind tests are negative. Dial test negative. DIAGNOSTICS Diagnostic imaging and reports were reviewed independently and, in general terms, with the patient.Including the following: X-ray of the bilateral knees dated 11/10/23 revealed Mild degenerative changes of both knees. Outside MRI of the right knee dated 06/26/22 revealed 1. Minimal degenerative fraying/tearing involving the undersurface of the posterior horn medial meniscus with mild ill-defined degenerative fraying/tearing involving the junction of the posterior horn and posterior root lateral meniscus. 2. Grade 2-3 chondral loss involving the posterior lateral tibial plateau underlying the posterior horn lateral meniscus. Patellar chondromalacia also noted as above. 3. No evidence of ligamentous injury orfracture. 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 who presents today with clinical findings and testing consistent with osteoarthritis and possible gait disturbance. I have a hard time aligning his clinical picture with that of his imaging. Looking at him walk he has a great deal of difficulty and he had nearly shuffles. He has very small steps. This is not what I look at as an antalgic gait. However that is what he equates it as. He also is very dependent on cane and wheelchair to walk but his exam is not matching his complaints. Therefore I think it would be reasonable to look a bit deeper. I do want him to undergo viscosupplementation today to see if it does help him as he does not get long-lasting lasting relief from the steroids. Furthermore I think MRI evaluation of bilateral knees would be helpful to clearly establishwhat degree of osteoarthritis he has. I also would like to start with some basic lab work to look at inflammatory markers, he does have discoloration of the skin that almost looks more vascular but could be autoimmune. I will also obtain an EMG to see if he has any radicular component to this gait mechanics and if itwas negative for any abnormality I will pursue further workup of Parkinson's. He also seems to havea right calf that it was smaller than his left and I can not make sense of the discrepancy. PATIENT EDUCATION: Education was discussed at today's appointment. A learning needs assessment was performed. Primary learner: Rolando Salazar Barriers to learning: None Preferred language: Tam[place] Learning preferences include: Seeing and doing. Discussed: Diagnosis and treatment plan. Demonstrated: Understanding of material discussed. Patient education materials given: None. Learner response: Learner demonstrated understanding. Signed by: Dona Pina MD documented in this encounter Plan of Treatment Upcoming Encounters Date Type Department Care Team (Latest Contact Info) Description 12/09/2023 7:00 AM CDT Clinical Communication Virtual Review in [place], [place] [address] [place] [address] 12/14/2023 8:30 AM CDT Telemedicine Department of Orthopedic Surgery in [place], [place] [address] [place] [address] Dona Pina M.D. [address] [place] [address] Scheduled Referrals Name Type Priority Associated Diagnoses Order Schedule Video anyplace visit Outpatient Referral Routine Pain Knee Right Pain Knee Left 1 Occurrences starting 11/10/2023 until 02/08/2025 documented as of this encounter Results * EMG (12/01/2023 9:00 AM CDT) 12/01/2023 9:15 AM CDT Narrative [facility] EMG - 12/01/2023 11:58 AM CDT Table formatting from the original result was not included. 01-Dec-2023 ? Electromyography ? Final Report Study Number: 1 EMG Bank Courier: Zaid Terrazas 127 or [phone] Referred by: DONA PINA (127 or [phone]) Referred for: Radiculopathy Referral Code: RX: 001 [...] peripheral neuropathy or left lumbosacral radiculopathy. N. Mk (127 or [phone])/SMB NERVE CONDUCTIONS ??Record Rep ?? Normal ??Normal [...] Electromyography Final Report Study Number: 1 EMG Bank Courier: Zaid Terrazas 127 or [phone] Referred by: DONA PINA (127 or [phone]) Referred for: Radiculopathy Referral Code: RX: 001 [...] fiber peripheralneuropathy or left lumbosacral radiculopathy. N. Seven (127 or [phone])/SMB NERVE CONDUCTIONS Record Rep Normal Normal Distal [...] Dona Pina M.D. NEUROLOGY ORDERABLES Edited Re sult - Final [facility] EMG * MR Knee Left without IV Contrast (11/30/2023 2:50 PM CDT) Anatomical Region Laterality Modality Lower Extremity, Knee, Muscu loskeletal RST LOS, Musculoskeletal ARZ LOS, Muskuloskeletal FLA LOS Left Magne tic Resonance Impressions 11/30/2023 3:10 PM CDT 1. Overall intact cruciate and collateral ligaments. No unstable meniscal tears 2. Small areas of chondromalacia most pronounced about the patella. 3. Probable shear injury associated with the infrapatellar plica. 4. Possible element of quadriceps fat pad impingement. Narrative 11/30/2023 3:10 PM CDT EXAM: ??MR KNEE LEFT WITHOUT IV CONTRAST COMPARISON: ??Radiographs most recently 11/10/2023 FINDINGS: Intact cruciate ligaments. Mild mucoid degeneration of the ACL. Old sprains and secondary degenerative chronic thickening proximal collateral ligaments overall well intact. No unstable medial meniscal tears. Intact anterior and posterior root attachments. No meniscal extrusion. Slightly prominent region of intrasubstance degeneration posterior horn of the medial meniscus (series 4 images 25, 26) without discrete tear, as there is no signal contacting the articular surface. Technically a prior closed tear is possible. No unstable lateral meniscal tears. Intact anterior and posterior root attachments. No meniscal extrusion. Tendinopathy of the intra-articular segment of the popliteus with superimposed small old partial thickness tear, otherwise well intact Intact IT band. Small full-thickness chondral fissures about the medial and lateral patellar facet with mild reactive subchondral bone marrow edema and cystic change. Small chondral flaps about the medial patellar facet. Otherwise small superficial chondral fibrillations. Trochlear cartilage is preserved. Similar to the right knee, possible shear injury associated with the infrapatellar plica/ligamentum mucosum with areas of complex edema and architectural distortion and soft tissue thickening about the anterior knee joint line (series 4 images 12- 15). Medial compartment cartilage is preserved. Small region of moderate chondromalacia posterior aspect of the lateral tibia without full-thickness defects. No discrete fractures, contusions or AVN. Intact MPFL, patellar retinacula and knee extensor mechanism. Slightly more than expected focal moderate edema about the quadriceps fat pad (series 4 image 6) can be seen with quadriceps fat pad impingement Pes anserine tendons unremarkable. No large knee joint effusion. Mild scattered synovitis. No discrete loose bodies. Trace fluid about the popliteal fossa without discrete cyst. Mild deep infrapatellar bursitis (series 4 image 7). Nonspecific mild reactive bone marrow edema about the distal femur adjacent to the lateral wall with local areas of synovitis. Additional small ganglions about the posterior knee joint line (around series 4 image 17). Nonspecific scattered reactive soft tissue edema including multifocal areas of intramuscular edema most pronounced about the gastrocnemius, soleus, distal biceps femoris and semimembranosus. Procedure Note Matrin Campuzano M.D. - 11/30/2023 EXAM: MR KNEE LEFT WITHOUT IV CONTRAST COMPARISON: Radiographs most recently 11/10/2023 FINDINGS: Intact cruciate ligaments. Mild mucoid degeneration of the ACL. Old sprains and secondary degenerative chronic thickening proximalcollateral ligaments overall well intact. No unstable medial meniscal tears. Intact anterior and posterior rootattachments. No meniscal extrusion. Slightly prominent region ofintrasubstance degeneration posterior horn of the medial meniscus (series4 images 25, 26) without discrete tear, as there is no signal contacting the articular surface. Technically a priorclosed tear is possible. No unstable lateral meniscal tears. Intact anterior and posterior rootattachments. No meniscal extrusion. Tendinopathy of the intra-articular segment of the popliteus withsuperimposed small old partial thickness tear, otherwise well intact Intact IT band. Small full-thickness chondral fissures about the medial and lateralpatellar facet with mild reactive subchondral bone marrow edema and cysticchange. Small chondral flaps about the medial patellar facet. Otherwisesmall superficial chondral fibrillations. Trochlear cartilage is preserved. Similar to the right knee, possible shear injury associated with theinfrapatellar plica/ligamentum mucosum with areas of complex edema andarchitectural distortion and soft tissue thickening about the anteriorknee joint line (series 4 images 12- 15). Medial compartment cartilage is preserved. Small region of moderate chondromalacia posterior aspect of the lateraltibia without full-thickness defects. No discrete fractures, contusions or AVN. Intact MPFL, patellar retinacula and knee extensor mechanism. Slightlymore than expected focal moderate edema about the quadriceps fat pad(series 4 image 6) can be seen with quadriceps fat pad impingement Pes anserine tendons unremarkable. No large knee joint effusion. Mild scattered synovitis. No discrete loose bodies. Trace fluid about the popliteal fossa without discrete cyst. Mild deep infrapatellar bursitis (series 4 image 7). Nonspecific mild reactive bone marrow edema about the distal femuradjacent to the lateral wall with local areas of synovitis. Additionalsmall ganglions about the posterior knee joint line (around series 4 image17). Nonspecific scattered reactive soft tissue edema including multifocalareas of intramuscular edema most pronounced about the gastrocnemius,soleus, distal biceps femoris and semimembranosus. IMPRESSION: 1. Overall intact cruciate and collateral ligaments. No unstable meniscaltears 2. Small areas of chondromalacia most pronounced about the patella. 3. Probable shear injury associated with the infrapatellar plica. 4. Possible element of quadriceps fat pad impingement. us Dona Pina M.D. IMG MRI PROCEDURES Final Resul t * MR Knee Right without IV Contrast (11/30/2023 2:50 PM CDT) Anatomical Region Laterality Modality Lower Extremity, Knee, Muscu loskeletal RST LOS, Musculoskeletal ARZ LOS, Muskuloskeletal FLA LOS Right Magne tic Resonance Impressions 11/30/2023 2:50 PM CDT 1. No unstable meniscal tears 2. Overall intact cruciate and collateral ligaments 3. Progressed areas of chondromalacia most pronounced about the patella 4. Probable shear injury associated with the infrapatellar plica. 5. Evidence supportive of patellar maltracking and patellar tendon-lateral femoral condyle friction syndrome. 6. Probable superficial venous thrombus within the small saphenous vein. Questionable areas of heterogeneity about the saphenopopliteal junction. Dedicated venous ultrasound could be further evaluation. Other MSK findings in the body of the report Narrative 11/30/2023 2:50 PM CDT EXAM: ??MR KNEE RIGHT WITHOUT IV CONTRAST COMPARISON: ??MRI 06/26/2022 and radiographs most recently 11/10/2023 FINDINGS: Overall intact cruciate and collateral ligaments. Mild mucoid degeneration of the ACL and additional likely superimposed old small partial-thickness tear involving the posterolateral bundle (series 4 image 16). No high-grade ACL tear. Mild degeneration and possible old sprain inferior PCL otherwise well intact (series 4 image 18). Typical degenerative chronic thickening of the proximal collateral ligaments overall well intact. No unstable medial meniscal tears. Degenerative fraying and subacute to chronic old small partial-thickness tears posterior root fibers (around series 4 image 19) otherwise intact. ??No meniscal extrusion. Areas of intrasubstance degeneration about the posterior horn (around series 4 image 25). No unstable lateral meniscal tears. Intact anterior and posterior root attachments. No meniscal extrusion. Intact popliteus, posterolateral corner and ALL. Intact IT band. Progressed focus of advanced chondromalacia about the lateral aspect of the patellar apex with full-thickness chondral defect with underlying subchondral bone marrow edema and cystic change measuring 4.3 mm in maximal width previously measured 1 mm. Additional progressed now 3 mm wide region of advanced chondromalacia about the medial patellar facet with overlying irregular chondral margins and superimposed small region of delamination (series 2 images 14-16). Additional small areas of mild to moderate chondromalacia throughout the remainder of the patella. Trochlear cartilage is preserved. Progressed focal slightly prominent reactive complex edema superior lateral aspect of Hoffa's fat pad (around series 4 image 6) which is not adjacent to the patellofemoral chondromalacia can be seen with patellar maltracking and patellar tendon-lateral femoral condyle friction syndrome Slightly progressed small full-thickness chondral fissures posterior aspect of the lateral tibia (series 6 images 8, 9 and series 4 images 11-13) with tiny focus of reactive subchondral edema/cystic change. Otherwise lateral compartment cartilage is preserved. Mild chondromalacia medial compartment predominantly involving the femoral condyle (series 6 images 11-13). New slightly prominent region of soft tissue thickening and intermediate to hyperintense T2 signal anterior knee joint line (series 4 images 12-15) could represent a shear injury associated with the infrapatellar plica. No fractures, contusions or AVN. Intact MPFL, patellar retinacula and knee extensor mechanism. Mild to moderate distal quadriceps tendinopathy. Pes anserine tendons are intact without significant bursitis. No significant knee joint effusion. Mild scattered synovitis. No discrete loose bodies. Trace fluid about the popliteal fossa without discrete cyst. Probable superficial venous thrombus within the small saphenous vein. Questionable areas of heterogeneity about the saphenopopliteal junction. Dedicated venous ultrasound could be further evaluation. Scattered nonspecific reactive soft tissue edema including relatively diffuse patchy areas of mild intramuscular edema There is a small region of prominent fatty change about the distal femoral metaphysis (around series 5 image 14) with areas of serpiginous morphology and mild peripheral T2 hyperintensity. Findings can be seen with a old bone infarct, intraosseous lipoma and/or area of intramedullary fat necrosis, or burnt out fibro-osseous lesion. Regardless this is of doubtful clinical significance without any aggressive or worrisome features Procedure Note Martin Campuzano M.D. - 11/30/2023 EXAM: MR KNEE RIGHT WITHOUT IV CONTRAST COMPARISON: MRI 06/26/2022 and radiographs most recently 11/10/2023 FINDINGS: Overall intact cruciate and collateral ligaments. Mild mucoid degeneration of the ACL and additional likely superimposed oldsmall partial-thickness tear involving the posterolateral bundle (series 4image 16). No high-grade ACL tear. Mild degeneration and possible old sprain inferior PCL otherwise wellintact (series 4 image 18). Typical degenerative chronic thickening of the proximal collateralligaments overall well intact. No unstable medial meniscal tears. Degenerative fraying and subacute tochronic old small partial-thickness tears posterior root fibers (aroundseries 4 image 19) otherwise intact. No meniscal extrusion. Areas ofintrasubstance degeneration about the posterior horn (around series 4 image 25). No unstable lateral meniscal tears. Intact anterior and posterior rootattachments. No meniscal extrusion. Intact popliteus, posterolateral corner and ALL. Intact IT band. Progressed focus of advanced chondromalacia about the lateral aspect ofthe patellar apex with full-thickness chondral defect with underlyingsubchondral bone marrow edema and cystic change measuring 4.3 mm inmaximal width previously measured 1 mm. Additional progressed now 3 mm wide region of advanced chondromalaciaabout the medial patellar facet with overlying irregular chondral marginsand superimposed small region of delamination (series 2 images 14-16).Additional small areas of mild to moderate chondromalacia throughout the remainder of the patella. Trochlear cartilage is preserved. Progressed focal slightly prominent reactive complex edema superiorlateral aspect of Hoffa's fat pad (around series 4 image 6) which is notadjacent to the patellofemoral chondromalacia can be seen with patellarmaltracking and patellar tendon-lateral femoral condyle friction syndrome Slightly progressed small full-thickness chondral fissures posterioraspect of the lateral tibia (series 6 images 8, 9 and series 4 [id number]) with tiny focus of reactive subchondral edema/cystic change.Otherwise lateral compartment cartilage is preserved. Mild chondromalacia medial compartment predominantly involving the femoralcondyle (series 6 images 11-13). New slightly prominent region of soft tissue thickening and intermediateto hyperintense T2 signal anterior knee joint line (series 4 images 12-15)could represent a shear injury associated with the infrapatellar plica. No fractures, contusions or AVN. Intact MPFL, patellar retinacula and knee extensor mechanism. Mild tomoderate distal quadriceps tendinopathy. Pes anserine tendons are intact without significant bursitis. No significant knee joint effusion. Mild scattered synovitis. No discrete loose bodies. Trace fluid about the popliteal fossa without discrete cyst. Probable superficial venous thrombus within the small saphenous vein.Questionable areas of heterogeneity about the saphenopopliteal junction.Dedicated venous ultrasound could be further evaluation. Scattered nonspecific reactive soft tissue edema including relativelydiffuse patchy areas of mild intramuscular edema There is a small region of prominent fatty change about the distal femoralmetaphysis (around series 5 image 14) with areas of serpiginous morphologyand mild peripheral T2 hyperintensity. Findings can be seen with a oldbone infarct, intraosseous lipoma and/or area of intramedullary fat necrosis, or burnt out fibro-osseouslesion. Regardless this is of doubtful clinical significance without anyaggressive or worrisome features IMPRESSION: 1. No unstable meniscal tears 2. Overall intact cruciate and collateral ligaments 3. Progressed areas of chondromalacia most pronounced about the patella 4. Probable shear injury associated with the infrapatellar plica. 5. 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 6. Probable superficial venous thrombus within the small saphenous vein.Questionable areas of heterogeneity about the saphenopopliteal junction.Dedicated venous ultrasound could be further evaluation. Other MSKfindings in the body of the report us Dona Pina M.D. IMG MRI PROCEDURES Final Resul t * Folate (11/10/2023 12:00 PM CDT) Folate, S >20.0 >=4.0 mcg/L 11/11/2023 7: 54 AM CDT DTL Blood (Blood, Venous) 11/10/2023 12:00 PM CDT 11/10/2023 2:59 PM CDT us Dona Pina M.D. LAB BLOOD ADD-ON Final Result [facility] [address] [place] [address], [facility] [address] [place] [address] * Vitamin B12 Assay (11/10/2023 12:00 PM CDT) [facility] Vitamin B12 Assay, S 455 180 - 914 ng/L 11/11/2023 8:24 AM CDT DT Comment: ----ADDITIONAL INFORMATION---- In patients being evaluated for vitamin B12 deficiency who have intrinsic factor blocking antibodies (IFBA), false elevations of B12 may occur due to IFBA interference thus potentially obscuring a physiological deficiency of B12. If observed B12 concentrations are discordant with clinical presentation, measurement of methylmalonic acid (MMA) should be considered. Blood (Blood, Venous) 11/10/2023 12:00 PM CDT 11/10/2023 2:59 PM CDT us Dona Pina M.D. LAB BLOOD ADD-ON Final Result [facility] [address] [place] [address], [facility] [address] [place] [address] * CRP (C-Reactive Protein) (11/10/2023 12:00 PM CDT) [facility] C-Reactive Protein (CRP), S <3.0 <5.0 mg/L 11/10/2023 3:39 PM CDT DT Blood (Blood, Venous) 11/10/2023 12:00 PM CDT 11/10/2023 2:59 PM CDT us Dona Pina M.D. LAB BLOOD ADD-ON Final Result [facility] [address] [place] [address], [facility] [address] [place] [address] * Sedimentation Rate (11/10/2023 12:00 PM CDT) Pathologist [facility] Sedimentation Rate, B 8 3 - 28 mm/h 11/10/2023 1:46 PM CDT DTL Blood (Blood, Venous) 11/10/2023 12:00 PM CDT 11/10/2023 12:18 PM CDT us Dona Pina M.D. LAB BLOOD ADD-ON Final Result [facility] [address] [place] [address], [facility] DTL [facility] [address] [place] [address] * CBC with Differential, Blood (11/10/2023 12:00 PM CDT) Pathologist [facility] Hemoglobin 14.3 13.2 - 16.6 g/dL 11/10/2023 12:42 PM CDT DTL Hematocrit 42.7 38.3 - 48.6 % 11/10/2023 12:42 PM CDT DTL Erythrocytes 4.76 4.35 - 5.65 x10(12)/L 11/10/2023 12:42 PM CDT DTL MCV 89.7 78.2 - 97.9 fL 11/10/2023 12:42 PM CDT DTL RBC Distrib Width 13.4 11.8 - 14.5 % 11/10/2023 12:42 PM CDT DTL Platelet Count 306 135 - 317 x10(9)/L 11/10/2023 12:42 PM CDT DTL Leukocytes 6.6 3.4 - 9.6 x10(9)/L 11/10/2023 12:42 PM CDT DTL Neutrophils 4.13 1.56 - 6.45 x10(9)/L 11/10/2023 12:42 PM CDT [facility] Lymphocytes 1.72 0.95 - 3.07 x10(9)/L 11/10/2023 12:42 PM CDT DTL Monocytes 0.71 0.26 - 0.81 x10(9)/L 11/10/2023 12:42 PM CDT DTL Eosinophils 0.04 0.03 - 0.48 x10(9)/L 11/10/2023 12:42 PM CDT DTL Basophils 0.04 0.01 - 0.08 x10(9)/L 11/10/2023 12:42 PM CDT DTL Blood (Blood, Venous) 11/10/2023 12:00 PM CDT 11/10/2023 12:18 PM CDT Dona Pina M.D. LAB BLOOD ADD-ON Final Result [facility] [address] [place] [address], [facility] DTL [facility] [address] [place] [address] [facility] [address] [place] [address] documented in this encounter Visit Diagnoses Diagnosis Pain Knee Right Pain Knee Left Pain Knee Right Pain Knee Left Pain Knee Right Pain Knee Left documented in this encounter
--- OUTSIDE RECORDS SUMMARY | 2023-12-03 14:32 | XMS_ITS | Encounter Summary ---
Author Organization [facility] Address [address] [place] [address] Care Team Providers Care Alcohol Still Operator Name Role Phone Unavailable Primary Care Provider Unavailabl e Encounter Details Date Type Department Care Team (Late st Contact Info) Description 11/11/2023 Clinical Communication Department of Orthopedic Surgery in [place], [place] [address] [place] [address] Dona Pina M.D. [address] [place] [phone] Social History Tobacco Use Types Packs/Day Years [...] How often do you attend amish or church serv ices? Never 12/06/2020 Do you belong [...] and heating? Not hard at all 12/06/2020 [facility] [place] [facility] - [...] place to sleep or slept in a group home (including now)? 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 [address] [place] [phone] documented as of this encounter Visit Diagnoses Not on filedocumented in this encounter
--- OUTSIDE RECORDS SUMMARY | 2023-12-03 14:32 | XMS_ITS | Encounter Summary ---
Author Organization [facility] Address [address] [place] [address] Care Team Providers Care Parking Cashier Name Role Phone Unavailable Primary Care Provider Unavailabl e Reason for Referral * MRI/CAT/PET Scan (Routine) - Closed Specialty Diagnoses / Procedures Referred By Contac t Referred To Contact Radiology Diagnoses Pain Knee Right Pain Knee Left Procedures MR Knee Left without IV Contrast Dona Pina M.D. [address] [place] [address] Phone: tel: fax: [email or web address] Referral ID Status Reason Start Date Expiration Date Visits Re quested Visits Authorized [id number] Closed 11/10/2023 11/09/2024 1 1 * MRI/CAT/PET Scan (Routine) - Closed Specialty Diagnoses / Procedures Referred By Contac t Referred To Contact Radiology Diagnoses Pain Knee Right Pain Knee Left Procedures MR Knee Right without IV Contrast Dona Pina M.D. [address] [place] [address] Phone: tel: fax: [facility] Referral ID Status Reason Start Date Expiration Date Visits Re quested Visits Authorized [id number] Closed 11/10/2023 11/09/2024 1 1 Reason for Visit * MRI/CAT/PET Scan (Routine) - Closed Specialty Diagnoses / Procedures Referred By Contac t Referred To Contact Radiology Diagnoses Pain Knee Right Pain Knee Left Procedures MR Knee Left without IV Contrast Dona Pina M.D. [address] [place] [address] Phone: tel: fax: [facility] Referral ID Status Reason Start Date Expiration Date Visits Re quested Visits Authorized [id number] Closed 11/10/2023 11/09/2024 1 1 Encounter Details Date Type Department Care Team (Latest Contact Info) Description 11/30/2023 1:36 PM CDT - 11/30/2023 11:59 PM CDT Hospital Encounter Department of Radiology, [facility], in [place], [place] [address] [place] [phone] Dona Pina M.D. [address] [place] [phone] Pain Knee Right; Pain Knee Left Discharge [...] week 12/06/2020 How often do you attend faith or mormonism serv ices? Never 12/06/2020 Do you belong to any clubs o r organizations such as faith groups, unions, fraternal or athletic groups, or [...] at all 12/06/2020 [facility] - [facility]ational Stress Questionnaire Answer Date [...] place to sleep or slept in a intermediate (including now)? 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 Gender Identity Male 12/06/2020 11:11 AM CDT [...] daily. 120 mL 11 01/29/2023 6:26 AM ADJ[employer]CT PROF[employer] 06/02/2022 hydroCHLOROthiaz dre (HYDRODIURIL) 25 mg tablet 09/24/2020 multivitamin tablet Take 1 tablet by mouth daily. 08/13/2021 nystatin (MYCOSTATIN) 100,000 unit/mL suspension 11/25/2020 documented as of this encounter Plan of Treatment Upcoming Encounters Date Type Department Care Team (Latest Contact Info) Description 12/09/2023 7:00 AM CDT Clinical Communication Virtual Review in [place], [place] [address] [place] [address] 12/14/2023 8:30 AM CDT Telemedicine Department of Orthopedic Surgery in [place], [place] [address] [place] [phone] Dona Pina M.D. [address] [place] [phone] documented as of this encounter Procedures Procedure Name Priority Date/Time Associated Diagnosis Comments MR KNEE LEFT WITHOUT IV CONTRAST RAD - Routine (most inpatients and all outpatients) 11/30/2023 2:50 PM CDT Pain Knee Right Pain Knee Left MR KNEE RIGHT WITHOUT IV CONTRAST RAD - Routine (most inpatients and all outpatients) 11/30/2023 2:50 PM CDT Pain Knee Right Pain Knee Left documented in this encounter Results * MR Knee Left without IV Contrast [...] distal biceps femoris and semimembranosus. Procedure Note Martin Campuzano M.D. - 11/30/2023 [...] 6 images 8, 9 and series 4 -08) with tiny focus of reactive subchondral edema/cystic [...] of the report us Dona Pina M.D. IMReyna MRI PROCEDURES Final Resul t documented in this encounter Visit Diagnoses Diagnosis Pain Knee Right Pain Knee Left documented in this encounter
--- OUTSIDE RECORDS SUMMARY | 2023-12-03 14:32 | XMS_ITS ---
Author Organization [facility] Address [address] [place] [address] Care Team Providers Care Admission Specialist Name Role Phone Unavailable Unavailable Unavailable Surgery Details Not on file Complications Check Surgery Details section. Procedure Estimated Blood Loss Check Surgery Details section. Procedure Findings Check Surgery Details section. Procedure Specimens Taken Check Surgery Details section.
--- OUTSIDE RECORDS SUMMARY | 2023-12-03 14:32 | XMS_ITS | Referral Summary ---
Author Organization [facility] Address [address] [place] [address] Care Team Providers Care Records Analysis Manager Name Role Phone Unavailable Primary Care Provider Unavailabl e Source Comments Patient records contain information from all sites at [facility]. For routine questions regarding patient records, call [phone] during business hours, M-F 8:00 AM - 5:00 PM Central Time. Record requests for emergency care only can be directed to [phone] at any time.[facility] Encounters Date Type Department Care Team Description 12/01/2023 9:00 AM CDT - 12/01/2023 11:59 PM CDT Hospital Encounter Department of Neurology in [place], [place] [address] [place] [address] Dona Pina M.D. Pain Knee Right; Pain Knee Left Discharge Disposition: Home or Self Care 11/30/2023 Orders Only Department of Orthopedic Surgery in [place], [place] [address] [place] [address] Dona Pina M.D. 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 Pain Knee Right; Pain Knee Left Discharge Disposition: Home or Self Care 11/11/2023 Clinical Communication Department of Orthopedic Surgery in [place], [place] [address] [place] [address] Dona Pina M.D. 11/10/2023 11:39 AM CDT - 11/10/2023 11:59 PM CDT Hospital Encounter Department of Laboratory Medicine and Pathology, [facility], in [place], [place] [address] [place] [phone] Dona Pina M.D. Pain Knee Right; Pain Knee Left Discharge Disposition: Home or Self Care 11/10/2023 1:00 PM CDT Procedure visit Department of Orthopedic Surgery in [address] [phone] Dania Wilcox P.A.-C., P.A. Primary Osteoarthritis Knee Bilateral 11/10/2023 10:30 AM CDT Comprehensive Visit Department of Orthopedic Surgery in [address] [phone] Dona Pina M.D. Pain Knee Right; Pain Knee Left 11/10/2023 8:38 AM CDT - 11/10/2023 11:38 AM CDT Hospital Encounter Department of Radiology, [facility] in [place], [place] [address] [place] [phone] Dona Pina M.D. Primary Osteoarthritis Knee Bilateral Discharge Disposition: Home or Self Care 10/07/2023 Orders Only Department of Orthopedic Surgery in [address] [phone] Elda Sotelo R.N. Primary Osteoarthritis Knee Bilateral (Primary Dx) 10/01/2023 Clinical Communication Department of Orthopedic Surgery in [address] [address] Prescheduling, Provider 09/16/2023 Community Orders [facility] [address] [address] Jono Ross M.D. Pain Knee Right (Primary Dx); Pain Knee Left from Last 3 Months Allergies Active Allergy Reactions Criticality Noted Date Comments Cigarette Smoke Other (see comments) 11/10/2023 Smoke environmental-sneezing and coughing Mold Anaphylaxis High 05/12/2022 Medications * This document contains information received from the source organization and may not represent a complete record from that organization. albuterol 90 mcg/actuation inhaler 1 Active hydroCHLOROthia zide (HYDRODIURIL) 25 mg tablet 1 Active nystatin (MYCOSTATIN) 100,000 unit/mL suspension 1 Active albuterol 0.63 mg/3 mL nebulizer solution Inhale 0.63 mg by nebulization every 6 (six) hours as needed for wheezing. Active budesonide (PULMICORT) 0.5 mg/2 mL nebulizer solution Mix 1 ampule budesonide in 8 oz saline solution. Irrigate 4 oz into each nostril twice daily. 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 2 Active Active Problems Problem Noted Date Diagnosed Date Chronic Cough 12/10/2020 Immunizations Name Administration Dates Next Due H1N1 All Forms 02/04/2009 HZV (ZOSTAVAX) 11/25/2012 HepA Adult 01/14/2004 HepB Adult 10/05/2003 Influenza, Seasonal, Injectable 12/09/2007,12/01,12/20/2002 Influenza, Unspecified 11/09/2008 PCV13 11/19/2014 PPSV23 12/17/2009 RZV (SHINGRIX) 2019, 9,05/24/2018,2018 SARS-COV-2 (COVID-19) - MODERNA(Discontinued) 12/12/2020 Td (Adult), adsorbed 10/05/2003 Tdap 11/21/2013 influenza trivalent high dos e (HD)(PF) 11/16/2018,11/26/2017,12/11/2016,2014,11/21/2013 influenza trivalent vaccine (6 months and older)(PF) 11/25/2012,11/27/2011,12/02/2010,2009 influenza vaccine quad (FLUZONE/FLUARIX) (6 months and [...] week 12/06/2020 How often do you attend gnosticist or temple serv ices? Never 12/06/2020 Do you belong to any clubs o r organizations such as gnosticist groups, unions, fraternal or athletic groups, or [...] and heating? Not hard at all 12/06/2020 [facility] Occupat ional Health - Occupational Stress [...] place to sleep or slept in a prison (including now)? 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 [address] [place] [phone] Procedures Procedure Name Priority Date/Time Associated Diagnosis Comments EMG Routine 12/01/2023 9:00 AM CDT Pain Knee Right Pain Knee Left MR KNEE LEFT WITHOUT IV CONTRAST RAD - Routine (most inpatients and all outpatients) 11/30/2023 2:50 PM CDT Pain Knee Right Pain Knee Left MR KNEE RIGHT WITHOUT IV CONTRAST RAD - Routine (most inpatients and all outpatients) 11/30/2023 2:50 PM CDT Pain Knee Right Pain Knee Left NH ARTHCS ASP/INJ MJR JT W US Routine 11/10/2023 1:00 PM CDT Primary Osteoarthritis Knee Bilateral FOLATE, S Routine 11/10/2023 12:00 PM CDT Pain Knee Right Pain Knee Left VITAMIN B12 ASSAY, S Routine 11/10/2023 12:00 PM CDT Pain Knee Right Pain Knee Left C-REACTIVE PROTEIN (CRP), S/P Routine 11/10/2023 12:00 PM CDT Pain Knee Right Pain Knee Left SEDIMENTATION RATE, B Routine 11/10/2023 12:00 PM CDT Pain Knee Right Pain Knee Left CBC WITH DIFFERENTIAL, B Routine 11/10/2023 12:00 PM CDT Pain Knee Right Pain Knee Left DX KNEE BILATERAL 4+ VIEWS RAD - Routine (most inpatients and all outpatients) 11/10/2023 10:14 AM CDT Primary Osteoarthritis Knee Bilateral from Last 3 Months Results * EMG (12/01/2023 9:00 AM CDT) 12/01/2023 9:15 AM CDT Narrative EMG - 12/01/2023 11:58 AM CDT Table formatting from the original result was not included. 01-Dec-2023 ? Electromyography ? Final Report Study Number: 1 EMG Chemical Equipment Controller: Zaid Terrazas 127 or [id number] Referred by: DONA PINA (127 or [phone]) Referred for: Radiculopathy Referral Code: RX: 001 [...] left lumbosacral radiculopathy. N. Mk (127 or [phone])/SMB NERVE CONDUCTIONS ??Record Rep ?? Normal ??Normal [...] Electromyography Final Report Study Number: 1 EMG Chemical Equipment Controller: Zaid Terrazas 127 or [id number] Referred by: DONA PINA (127 or [phone]) Referred for: Radiculopathy Referral Code: RX: 001 [...] left lumbosacral radiculopathy. N. Seven (127 or [phone])/SMB NERVE CONDUCTIONS Record Rep Normal Normal Distal [...] 6 images 8, 9 and series 4 -43) with tiny focus of reactive subchondral edema/cystic [...] IMG MRI PROCEDURES Final Resul t * [place] ARTHCS ASP/INJ MJR JT W US (11/10/2023 1:00 PM CDT) Narrative MMODAL - 11/10/2023 1:00 PM CDT Dania Wilcox P.A.-C., P.A. ? 11/10/2023 ??1:18 PM Knee site- Bilat knee joint : injection only Performed by: Dania Wilcox P.A.-C., P.A. Authorized by: Dona Pina M.D. ?? PROCEDURE DETAILS Indications: knee degenerative joint disease Procedure Location knee Knee site: Bilat knee joint Site prep: patient was prepped and draped in usual sterile fashion ?? Patient position: supine Procedural approach: superolat Procedure performed: injection only Needle gauge: 19 G, length: 2 in Ultrasound image guidance used to localize target, identify at risk structures, and dynamically used to direct therapy to the target. Image(s) acquired and saved. Pre-procedure image guidance used to localize target and identify at risk structures, and plan approach and site was marked using indelible marker Probe: linear mid-frequency Needle approach: lateral to medial Ultrasound visualization: in-plane Procedural Medication The following medications were administered at the target site(s) On the right: Local anesthetic: 5 mL lidocaine 10 mg/mL (1 %) Viscosupplement: 48 mg hylan g-f 20 48 mg/6 mL On the left: Local anesthetic: 5 mL lidocaine 10 mg/mL (1 %) Viscosupplement: 48 mg hylan g-f 20 48 mg/6 mL CONSENT Consent obtained: written (Risks, benefits and alternatives were discussed and a written Informed Consent was obtained. Please see Informed Consent form for further details.) UNIVERSAL PROTOCOL All relevant documentation and testing were reviewed and available. All required blood products, implants, devices and or special equipment were made available as applicable. Pre-procedure verification was conducted and the correct site was marked if required. A fire risk and smoke assessment were done as applicable. The procedural time-out to verify correct patient, correct side/site, and procedure was conducted prior to performing the procedure and confirmed in a procedural pause. PRE-PROCEDURE DETAILS Procedure purpose: therapeutic Indications: knee degenerative joint disease Appropriate hand hygiene, gown, cap, mask, protective eyewear, sterile gloves, skin preparation, sterile drape, and strict aseptic technique were utilized as applicable for the procedure. Site preparation: chlorhexidine SEDATION / ANESTHESIA Anesthesia method: pre-procedure local infiltration POST-PROCEDURE DETAILS Procedure completed successfully: yes Complications: no apparent complications ?? Post-procedure instructions: avoid strenuous activity for 2 days and avoid submersion of procedure site for 48 hours Discharge instructions: ice area as needed for comfort, medications and side effects and per nursing education record Comments Referring provider: Dona Pina M.D. Dona Pina M.D. PROCEDURE/MINOR SURGICAL ORDER FABIOLA Final Result MMODAL NA * Sedimentation Rate (11/10/2023 12:00 PM CDT) Sedimentation Rate, B 8 3 - 28 mm/h 11/10/2023 1:46 PM CDT DTL Blood (Blood, Venous) 11/10/2023 12:00 PM CDT 11/10/2023 12:18 PM CDT us Dona Pina M.D. LAB BLOOD ADD-ON Final Result [facility] [address] [place] [address], [facility] DTL [facility] [address] [place] [address] * CBC with Differential, Blood (11/10/2023 12:00 PM CDT) Pathologist [facility] Hemoglobin 14.3 13.2 - 16.6 g/dL 11/10/2023 [...] Pina M.D. LAB BLOOD ADD-ON Final Result Performing Organization Address City/[facility]/ZIP Co de Phone Number [facility] [address] [place], [place] [phone] [place] [address] 200 [place], [place] [phone] [place] [address] 200 [place] [address] * CRP (C-Reactive Protein) (11/10/2023 12:00 PM CDT) [facility] C-Reactive Protein (CRP), S <3.0 <5.0 mg/L 11/10/2023 3:39 PM CDT DTL Blood (Blood, Venous) 11/10/2023 12:00 PM CDT 11/10/2023 2:59 PM CDT us Dona Pina M.D. LAB BLOOD ADD-ON Final Result Performing Organization Address City/[facility]/ZIP Co de Phone Number [facility] [address] [place], [place] [address] 200 [place] [address] * Folate (11/10/2023 12:00 PM CDT) Pathologist [facility] Folate, S >20.0 >=4.0 mcg/L 11/11/2023 7: 54 AM CDT DTL Blood (Blood, Venous) 11/10/2023 12:00 PM CDT 11/10/2023 2:59 PM CDT Dona Pina M.D. LAB BLOOD ADD-ON Final Result Performing Organization Address [facility] Co de Phone Number [facility] 200 [place] [address], [facility] 200 [place] [address] * Vitamin B12 Assay (11/10/2023 12:00 PM CDT) Vitamin B12 Assay, S 455 180 - [...] 12:00 PM CDT 11/10/2023 2:59 PM CDT Dona Pina M.D. LAB BLOOD ADD-ON Final Result Performing Organization Address [facility] Co de Phone Number [facility] [address] [place] [address], [facility] 200 [place] [address] * DX Knee Bilateral 4+ Views (11/10/2023 10:14 AM CDT) Anatomical Region Laterality Modality Lower Extremity, Knee, Muscu loskeletal RST LOS, Musculoskeletal ARZ LOS, Muskuloskeletal FLA LOS Bilateral Digit al Radiography Impressions 11/10/2023 10:24 AM CDT Mild degenerative changes of both knees. Narrative 11/10/2023 10:24 AM CDT EXAM: ??DX KNEE BILATERAL 4+ VIEWS Procedure Note Esdras Hollis M.D. - 11/10/2023 EXAM: DX KNEE BILATERAL 4+ VIEWS IMPRESSION: Mild degenerative changes of both knees. Dona Pina M.D. IMG DIAGNOSTIC IMAGING PROCEDU RES Final Result from Last 3 Months Insurance MEDICARE [facility]
--- OUTSIDE RECORDS SUMMARY | 2023-12-03 14:32 | XMS_ITS | Encounter Summary ---
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 [address] [place] [phone] Phone: tel: fax: [facility] Referral ID Status Reason Start Date Expiration Date V isits Requested Visits Authorized [id number] Authorized 11/30/2023 2024 1 1 Encounter Details Date Type Department Care Team (Late st Contact Info) Description 11/30/2023 Orders Only Department of Orthopedic Surgery in [place], [place] [address] [place] [phone] Dona Pina M.D. 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 Never 12/06/2020 Do you belong to any clubs o r organizations such as uatsdin groups, unions, fraternal or athletic groups, or [...] and heating? Not hard at all 12/06/2020 [facility] of Occupat ional Health - Occupational [...] to sleep or slept in a senior care (including now)? 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
--- OUTSIDE RECORDS SUMMARY | 2023-12-03 14:32 | XMS_ITS | Encounter Summary ---
Author Organization [facility] Address [address] [place] [address] Care Team Providers Care Digital Media Director Name Role Phone Unavailable Primary Care Provider Unavailabl e Reason for Visit * Outpatient (Routine) - Closed Specialty Diagnoses / Procedures Referred By Landon mccauley Referred To Contact Diagnoses Primary Osteoarthritis Knee Bilateral Procedures ORS US-Guided aspiration/injection Dona Pina M.D. [address] [place] [phone] Phone: tel: fax: [facility] Referral ID Status Reason Start Date Expiration Date Visits Re quested Visits Authorized [id number] Closed 10/07/2023 10/06/2024 1 1 Encounter Details Date Type Department Care Team (Latest Contact Info) Description 11/10/2023 1:00 PM CDT Procedure visit Department of Orthopedic Surgery in [place], [place] [address] [place] [phone] Dania Wilcox P.A.-Montserrat., P.A. [address] [place] [phone] Primary Osteoarthritis Knee Bilateral Social History Tobacco Use Types Packs/Day Years [...] week 12/06/2020 How often do you attend zoroastrianism or rastafarian serv ices? Never 12/06/2020 Do you belong to any clubs o r organizations such as zoroastrianism groups, unions, fraternal or athletic groups, or [...] and heating? Not hard at all 12/06/2020 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 - 11/10/2023 1:00 PM CDTAssociated Order(s): ORS US-Guided aspiration/injection: Bilat knee joint Pre-Procedure Diagnose(s): Primary Osteoarthritis Knee Bilateral Post-Procedure Diagnose(s): Primary Osteoarthritis Knee Bilateral Knee site- Bilat knee joint : injection only Performed by: Dania Wilcox P.A.-C., P.A. Authorized by: Dona Pina M.D. PROCEDURE DETAILS Indications: knee degenerative joint disease Procedure Location knee Knee site: Bilat knee joint Site prep: patient was prepped and draped in usual sterile fashion Patient position: supine Procedural approach: superolat Procedure [...] completed successfully: yes Complications: no apparent complications Post-procedure instructions: avoid strenuous activity for 2 days and avoid submersion of procedure site for 48 hours Discharge instructions: ice area as needed for comfort, medications and side effects and per nursing education record Comments Referring provider: Dona Pina M.D. documented in this encounter Plan of Treatment Upcoming Encounters Date Type Department Care Team (Latest Contact Info) Description 12/09/2023 7:00 AM CDT Clinical Communication Virtual Review in [place], [place] [address] [place] [phone] 12/14/2023 8:30 AM CDT Telemedicine Department of Orthopedic Surgery in [place], [place] [address] [place] [phone] Dona Pina M.D. [address] [place] [phone] documented as of this encounter Procedures Procedure Name Priority Date/Time Associated Diagnosis Comments [place] ARTHCS ASP/INJ MJR JT W US Routine 11/10/2023 1:00 PM CDT Primary Osteoarthritis Knee Bilateral documented in this encounter Results * LA ARTHCS ASP/INJ MJR JT W US (11/10/2023 [...] M.D. PROCEDURE/MINOR SURGICAL ORDER FABIOLA Final Result Performing Organization Address City/State/[facility] Co de Phone Number MMODAL NA documented in this encounter Visit Diagnoses Diagnosis Primary Osteoarthritis Knee Bilateral documented in this encounter Administered Medications Inactive Administered Medications - up to 3 most recent administrations Medication Order MAR Action Action Date Dose Rate Site hylan g-f 20 injection 48 mg (Synvisc-One) 48 mg, intra-articular, One-Time Injection, Starting on Wed11/10/23 at 1300, For 1 doseIndications:Primary Osteoarthritis Knee Bilateral Given 11/10/2023 1:00 PM CDT 48 mg hylan g-f 20 injection 48 mg (Synvisc-One) 48 mg, intra-articular, One-Time Injection, Starting on Wed11/10/23 at 1300, For 1 doseIndications:Primary Osteoarthritis Knee Bilateral Given 11/10/2023 1:00 PM CDT 48 mg lidocaine 10 mg/mL (1 %) injection 5 mL (Xylocaine) 5 mL, injection, One-Time Injection, Starting on Wed11/10/23 at 1300, For 1 doseIndications:Primary Osteoarthritis Knee Bilateral Given 11/10/2023 1:00 PM CDT 5 mL lidocaine 10 mg/mL (1 %) injection 5 mL (Xylocaine) 5 mL, injection, One-Time Injection, Starting on Wed11/10/23 at 1300, For 1 doseIndications:Primary Osteoarthritis Knee Bilateral Given 11/10/2023 1:00 PM CDT 5 mL documented in this encounter
--- OUTSIDE RECORDS SUMMARY | 2023-12-03 14:32 | XMS_ITS | Encounter Summary ---
Author Organization [facility] Address [address] [place] [address] Care Team Providers Care Radial Drill Operator For Plastic Name Role Phone Unavailable Primary Care Provider Unavailabl e Encounter Details Date Type Department Care Team (Latest Contact Info) Description 11/10/2023 11:39 AM CDT - 11/10/2023 11:59 PM CDT Hospital Encounter Department of Laboratory Medicine and Pathology, [facility], in [place], [place] [address] [place] [address] Dona Pina M.D. [address] [place] [address] Pain Knee Right; Pain Knee Left Discharge [...] week 12/06/2020 How often do you attend worship or taoist serv ices? Never 12/06/2020 Do you belong to any clubs o r organizations such as worship groups, unions, fraternal or athletic groups, or [...] and heating? 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 120 mL 11 01/29/2023 6:26 AM TRAVEL MONEY ADVISOR 06/02/2022 hydroCHLOROthiaz dre (HYDRODIURIL) 25 mg tablet 09/24/2020 multivitamin tablet Take 1 tablet by mouth daily. 08/13/2021 nystatin (MYCOSTATIN) 100,000 unit/mL suspension 11/25/2020 documented as of this encounter Plan of Treatment Upcoming Encounters Date Type Department Care Team (Latest Contact Info) Description 12/09/2023 7:00 AM CDT Clinical Communication Virtual Review in [place], [place] 200 [place] [address] 12/14/2023 8:30 AM CDT Telemedicine Department of Orthopedic Surgery in [place], [place] [address] [place] [address] Dona Pina M.D. [address] [place] [address] documented as of this encounter Procedures Procedure Name Priority Date/Time Associated Diagnosis Comments SEDIMENTATION RATE, B Routine 11/10/2023 12:00 PM CDT Pain Knee Right Pain Knee Left CBC WITH DIFFERENTIAL, B Routine 11/10/2023 12:00 PM CDT Pain Knee Right Pain Knee Left C-REACTIVE PROTEIN (CRP), S/P Routine 11/10/2023 12:00 PM CDT Pain Knee Right Pain Knee Left FOLATE, S Routine 11/10/2023 12:00 PM CDT Pain Knee Right Pain Knee Left VITAMIN B12 ASSAY, S Routine 11/10/2023 12:00 PM CDT Pain Knee Right Pain Knee Left documented in this encounter Results * Folate (11/10/2023 12:00 PM CDT) Folate, S >20.0 >=4.0 mcg/L 11/11/2023 7: 54 AM CDT DTL Blood (Blood, Venous) 11/10/2023 12:00 PM CDT 11/10/2023 2:59 PM CDT Dona Pina M.D. LAB BLOOD ADD-ON Final Result [facility] [address] [place] [address], [facility] [address] [place] [address] * Vitamin B12 Assay (11/10/2023 12:00 PM CDT) Vitamin B12 Assay, S 455 180 - 914 ng/L 11/11/2023 8:24 AM CDT DTL Comment: ----ADDITIONAL INFORMATION---- In patients being evaluated [...] BLOOD ADD-ON Final Result Performing Organization Address [facility] [place] [address] * CRP (C-Reactive Protein) (11/10/2023 12:00 PM CDT) C-Reactive Protein (CRP), S <3.0 <5.0 mg/L 11/10/2023 3:39 PM CDT DTL Blood (Blood, Venous) 11/10/2023 12:00 PM CDT 11/10/2023 2:59 PM CDT Result Ananda Pina M.D. LAB BLOOD ADD-ON Final Result Performing Organization Address City/[facility] Co de Phone Number [facility] [address] [place] [address] * Sedimentation Rate (11/10/2023 12:00 PM CDT) Sedimentation Rate, B 8 3 - 28 mm/h 11/10/2023 1:46 PM CDT DT Blood (Blood, Venous) 11/10/2023 12:00 PM CDT 11/10/2023 12:18 PM CDT us Dona S Beacom M.D. LAB BLOOD ADD-ON Final Result [facility] [address] [place] [address], [facility] DTL [facility] [address] [place] [address] * CBC with Differential, Blood (11/10/2023 12:00 PM CDT) Hemoglobin 14.3 13.2 - 16.6 g/dL 11/10/2023 [...] CDT 11/10/2023 12:18 PM CDT us Dona S Beacom M.D. LAB BLOOD ADD-ON Final Result [facility] [address] [place] [address], [facility] DTL [facility] [address] [place] [address] [facility] [address] [place] [address] documented in this encounter Visit Diagnoses Diagnosis Pain Knee Right Pain Knee Left documented in this encounter
--- OUTSIDE RECORDS SUMMARY | 2023-12-03 14:32 | XMS_ITS | Clinical Summary ---
Author Organization [facility] Address [address] [place] [address] Care Team Providers Care Vaccine Key Customer Leader Name Role Phone Unavailable Primary Care Provider Unavailabl e Source Comments Patient records contain information from all sites at [facility]. For routine questions regarding patient records, call [phone] during business hours, M-F 8:00 AM - 5:00 PM Central Time. Record requests for emergency care only can be directed to [phone] at any time.[facility] Allergies Active Allergy Reactions Criticality Noted Date [...] daily. 120 mL 11 01/29/2023 6:26 AM DISK RECOATER 3 Active multivitamin tablet Take 1 tablet by mouth daily. 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 Pain Knee Right; Pain Knee Left Discharge Disposition: Home or Self Care 11/30/2023 1:36 PM CDT - 11/30/2023 11:59 PM CDT Hospital Encounter Department of Radiology, [facility] in [place], [place] [address] [place] [phone] Dona Pina M.D. Pain Knee Right; Pain Knee Left Discharge Disposition: Home or Self Care 11/30/2023 Orders Only Department of Orthopedic Surgery in [place], [place] [address] [place] [phone] Dona Pina M.D. 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 11/10/2023 1:00 PM CDT Procedure visit Department of Orthopedic Surgery in [address] [phone] Dania Wilcox P.A.-C., P.A. Primary Osteoarthritis Knee Bilateral 11/10/2023 11:39 AM CDT - 11/10/2023 11:59 PM CDT Hospital Encounter Department of Laboratory Medicine and Pathology, [facility] in [place], [place] [address] [place] [phone] Dona Pina M.D. Pain Knee Right; Pain Knee Left Discharge Disposition: Home or Self Care 11/10/2023 10:30 AM CDT Comprehensive Visit Department of Orthopedic Surgery in [place], [place] [address] [place] [phone] Dona Pina M.D. Pain Knee Right; Pain Knee Left 11/10/2023 8:38 AM CDT - 11/10/2023 11:38 AM CDT Hospital Encounter Department of Radiology, [facility], in [place], [place] [address] [place] [address] Dona Pina M.D. Primary Osteoarthritis Knee Bilateral Discharge Disposition: Home or Self Care 10/07/2023 Orders Only Department of Orthopedic Surgery in [place], [place] [address] [place] [address] Elda Sotelo R.N. Primary Osteoarthritis Knee Bilateral (Primary Dx) 10/01/2023 Clinical Communication Department of Orthopedic Surgery in [place], [place] [address] [place] [address] Prescheduling, Provider 09/16/2023 Community Orders [address] [address] Jono Ross M.D. Pain Knee Right (Primary Dx); Pain Knee Left from Last 3 Months Immunizations Name Administration Dates Next Due H1N1 [...] How often do you attend zoroastrian or voodoo serv ices? Never 12/06/2020 Do you belong [...] hard at all 12/06/2020 [facility] [place] of Occupat ional Health - Occupational Stress [...] place to sleep or slept in a long term (including now)? 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 [address] [place] [phone] Health Maintenance Due Date Last Done Comments Hepatitis C Screening 1945 Hepatitis A Vaccines (2 of 2 - Risk 2-dose series) 07/13/2004 01/14/2004 Hepatitis B Vaccines (3 of 3 - 19+ 3-dose series) 02/05/2021 12/11/2020, 10/05/2003 Depression Screening (Annual PHQ-2) 02/15/2023 Fall Risk Screen (Annual) 02/15/2023 DTaP,Tdap,and Td Vaccines (3 - Td or Tdap) 04/07/2033 04/07/2023, 11/21/2013, 10/05/2003 Pneumococcal vaccine (65+ years) Completed 11/20/19, 12/17/2009 Zoster Vaccines Completed 2019, 08/2018, 05/24/2018, Additional history exists RSV vaccine - (32-3 6 weeks) or 60+ years Completed 10/23/2022, 10/08/2022 COVID-19 Vaccine Completed 10/19/2023, , 05/04/2023, Additional history exists Influenza Vaccine Completed 11/05/2023, , 10/29/2021, Additional history exists Procedures Procedure Name Priority Date/Time Associated Diagnosis [...] CDT Pain Knee Right Pain Knee Left [place] ARTHCS ASP/INJ MJR JT W US Routine [...] ? Final Report Study Number: 1 EMG Roll Scale Worker: Zaid Terrazas 127 or [phone] Referred by: DONA PINA (127 or [phone]) Referred for: Radiculopathy Referral Code: RX: 001 [...] neuropathy or left lumbosacral radiculopathy. N. Seven (755 iv [phone])/SMB NERVE CONDUCTIONS ??Record Rep ?? Normal ??Normal [...] Electromyography Final Report Study Number: 1 EMG Roll Scale Worker: Zaid Terrazas 127 or [phone] Referred by: DONA PINA (127 or [phone]) Referred for: Radiculopathy Referral Code: RX: 001 [...] left lumbosacral radiculopathy. N. Mk (127 or [phone])/SMB NERVE CONDUCTIONS Record Rep Normal Normal Distal [...] Possible element of quadriceps fat pad impingement. Dona SANCHEZ MRI PROCEDURES Final Resul t * MR [...] 6 images 8, 9 and series 4 -65) with tiny focus of reactive subchondral edema/cystic [...] IMG MRI PROCEDURES Final Resul t * [place] ARTHCS ASP/INJ MJR JT W US (11/10/2023 [...] record Comments Referring provider: Dona Pina M.D. us Dona Pina M.D. PROCEDURE/MINOR SURGICAL ORDER FABIOLA Final Result Performing Organization Address [facility] de Phone Number MMODAL NA * Sedimentation Rate (11/10/2023 12:00 PM CDT) Sedimentation Rate, B 8 3 - 28 mm/h 11/10/2023 1:46 PM CDT DTL Blood (Blood, Venous) 11/10/2023 12:00 PM CDT 11/10/2023 12:18 PM CDT Dona Pina M.D. LAB BLOOD ADD-ON Final Result Performing Organization Address [facility] de Phone Number [facility] [address] [place] [address], [facility] DTL [facility] [address] [place] [address] * CBC with Differential, Blood (11/10/2023 12:00 [...] - 6.45 x10(9)/L 11/10/2023 12:42 PM CDT [facility] Lymphocytes 1.72 0.95 - 3.07 x10(9)/L 11/10/2023 [...] Pina M.D. LAB BLOOD ADD-ON Final Result [facility] [address] [place] [address], [facility] [address] [place] [address] [facility] [address] [place] [address] * CRP (C-Reactive Protein) (11/10/2023 12:00 PM CDT) [facility] C-Reactive Protein (CRP), S <3.0 <5.0 mg/L 11/10/2023 3:39 PM CDT DT Blood (Blood, Venous) 11/10/2023 12:00 PM CDT 11/10/2023 2:59 PM CDT us Dona Pina M.D. LAB BLOOD ADD-ON Final Result Performing Organization Address City/[facility]/ZIP Co de Phone Number [facility] [address] [place], [place] [phone] [address] * Folate (11/10/2023 12:00 PM CDT) [facility] Folate, S >20.0 >=4.0 mcg/L 11/11/2023 7: 54 AM CDT DT Blood (Blood, Venous) 11/10/2023 12:00 PM CDT 11/10/2023 2:59 PM CDT us Dona Pina M.D. LAB BLOOD ADD-ON Final Result [facility] [address] [place], [place] [phone] [address] * Vitamin B12 Assay (11/10/2023 12:00 PM CDT) [facility] Vitamin B12 Assay, S 455 180 - 914 ng/L 11/11/2023 8:24 AM CDT [facility] Comment: ----ADDITIONAL INFORMATION---- In patients being evaluated [...] Pina M.D. LAB BLOOD ADD-ON Final Result [facility] [address] [place] [address], [facility] [address] [place] [address] * DX Knee Bilateral 4+ Views (11/10/2023 [...] IMPRESSION: Mild degenerative changes of both knees. us Dona Pina M.D. IMG DIAGNOSTIC IMAGING PROCEDU RES Final Result from Last 3 Months Insurance MEDICARE [facility]
--- OUTSIDE RECORDS SUMMARY | 2023-12-03 14:33 | XMS_ITS | Clinical Summary ---
Author Organization [employer] [facility] Address [place], [place] [address] Care Team Providers Care In Flight Technician Name Role Phone Jono Ross MD Primary [...] 65+ (1 of 1 - PCV) 2009 RSV vaccine for adults or pr egnancy (1 - 1-dose 75+ series) 11/30/2019 COVID-19 vaccine series ( season) 2023 12/12/2020, 05/03/2020, 04/05/2020 Influenza for age 65+ 10/17/2023 Care Teams In Flight Technician Relationship Specialty Start Date End Date Jono Ross MD [address] [place] [address] PCP - General 06/23/11
--- OUTSIDE RECORDS SUMMARY | 2023-12-03 14:33 | XMS_ITS | Encounter Summary ---
Author Organization [facility] Address [address] [place] [address] Care Team Providers Care Head Tennis Professional Name Role Phone Unavailable Primary Care Provider Unavailabl e Reason for Referral * Outpatient (Routine) - Closed Specialty Diagnoses / Procedures Referred By Landon mccauley Referred To Contact Orthopedic Surgery Diagnoses Pain Knee Right Pain Knee Left Jono Ross M.D. [address] [place] [address] Phone: tel: fax: [facility] Referral ID Status Reason Start Date Expiration Date Visits Re quested Visits Authorized [id number] Closed 09/16/2023 03/17/2025 1 1 Encounter Details Date Type Department Care Team (Late st Contact Info) Description 09/16/2023 [facility] [address] [place] [address] Jono Ross M.D. [address] [place] [phone] Pain Knee Right (Primary Dx); Pain Knee Left Social History Tobacco Use [...] How often do you attend anabaptist or cheondoism serv ices? Never 12/06/2020 Do you belong [...] and heating? Not hard at all 12/06/2020 [facility] [place] of Occupat ional Health - Occupational Stress [...] place to sleep or slept in a fdc (including now)? 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 [address] [place] [phone] Scheduled Referrals Name Type Priority Associated Diagnoses Order Schedule Orthopedics Referral Outpatient Referral Routine Pain Knee Right Pain Knee Left Expected: 09/16/2023 (Approximate), Expires: 12/16/2024 documented as of this encounter Visit Diagnoses Diagnosis Pain Knee Right- Primary Pain Knee Left documented in this encounter
--- OUTSIDE RECORDS SUMMARY | 2023-12-03 14:33 | XMS_ITS | Encounter Summary ---
Author Organization [facility] Address [address] [place] [address] Care Team Providers Care Conditioning Yard Supervisor Name Role Phone Unavailable Primary Care Provider Unavailabl e Reason for Referral * Outpatient (Routine) - Closed Specialty Diagnoses / Procedures Referred By Landon mccauley Referred To Contact Diagnoses Primary Osteoarthritis Knee Bilateral Procedures ORS US-Guided aspiration/injection Dona Pina M.D. [address] [place] [phone] Phone: tel: fax: [facility] Referral ID Status Reason Start Date Expiration Date Visits Re quested Visits Authorized [id number] Closed 10/07/2023 10/06/2024 1 1 Encounter Details Date Type Department Care Team (Late st Contact Info) Description 10/07/2023 Orders Only Department of Orthopedic Surgery in [place], [place] [address] [place] [phone] Elda Sotelo R.N. [address] [place] [phone] Primary Osteoarthritis Knee Bilateral (Primary Dx) Social History Tobacco Use Types [...] How often do you attend anabaptist or zoroastrianism serv ices? Never 12/06/2020 Do [...] and heating? Not hard at all 12/06/2020 [facility] [place] of Occupat ional Health - Occupational Stress [...] place to sleep or slept in a halfway (including now)? 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 [address] [place] [phone] documented as of this encounter Results * [place] ARTHCS ASP/INJ MJR JT W US (11/10/2023 1:00 PM CDT) Narrative MMODAL - 11/10/2023 1:00 PM CDT Dania Wilcox P.A.-C., P.A. ? 11/10/2023 ??1:18 PM Knee site- Bilat knee joint : injection only Performed by: Dania Wilcox P.A.-C., P.ACarina Authorized by: Dona Pina M.D. ?? PROCEDURE [...] SURGICAL ORDER FABIOLA Final Result MMODAL NA documented in this encounter Visit Diagnoses Diagnosis Primary Osteoarthritis Knee Bilateral- Primary Primary Osteoarthritis Knee Bilateral documented in this encounter
--- OUTSIDE RECORDS SUMMARY | 2023-12-03 14:33 | XMS_ITS | Encounter Summary ---
Author Organization [facility] Address [address] [place] [address] Care Team Providers Care Electric Motor Mechanic Name Role Phone Unavailable Primary Care Provider Unavailabl e Encounter Details Date Type Department Care Team (Late st Contact Info) Description 10/01/2023 Clinical Communication Department of Orthopedic Surgery in [place], [place] [address] [place] [address] Prescheduling, Provider Social History Tobacco Use Types Packs/Day Years [...] week 12/06/2020 How often do you attend islam or yarsani serv ices? Never 12/06/2020 Do you belong to any clubs o r organizations such as islam groups, unions, fraternal or athletic groups, or [...] and heating? Not hard at all 12/06/2020 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 [address] [place] [phone] documented as of this encounter Visit Diagnoses Not on filedocumented in this encounter
--- OUTSIDE RECORDS SUMMARY | 2023-12-03 14:33 | XMS_ITS | Encounter Summary ---
Author Organization [facility] Address [address] [place] [address] Care Team Providers Care Chief Growth Officer Name Role Phone Unavailable Primary Care Provider Unavailabl e Reason for Visit * Outpatient (Routine) - Closed Specialty Diagnoses / Procedures Referred By Landon mccauley Referred To Contact Diagnoses Primary Osteoarthritis Knee Bilateral Procedures DX Knee Bilateral 4+ Views DX Knee Bilateral Standing 3 Views DX Knee Bilateral 1 View Dona Pina M.D. 200 [place] [address] Phone: tel: fax: [facility] Referral ID Status Reason Start Date Expiration Date Visits Re quested Visits Authorized [id number] Closed 10/07/2023 10/06/2024 1 1 Encounter Details Date Type Department Care Team (Latest Contact Info) Description 11/10/2023 8:38 AM CDT - 11/10/2023 11:38 AM CDT Hospital Encounter Department of Radiology, [facility], in [place], [place] 200 [place] [phone] Dona Pina M.D. [address] [place] [phone] Primary Osteoarthritis Knee Bilateral Discharge Disposition: Home or Self Care Social [...] week 12/06/2020 How often do you attend yarsani or adventism serv ices? Never 12/06/2020 Do you belong to any clubs o r organizations such as yarsani groups, unions, fraternal or athletic groups, or [...] and heating? 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 120 mL 11 01/29/2023 6:26 AM BALLET TEACHER 06/02/2022 hydroCHLOROthiaz dre (HYDRODIURIL) 25 mg tablet 09/24/2020 multivitamin tablet Take 1 tablet by mouth daily. 08/13/2021 nystatin (MYCOSTATIN) 100,000 unit/mL suspension 11/25/2020 documented as of this encounter Plan of Treatment Upcoming Encounters Date Type Department Care Team (Latest Contact Info) Description 12/09/2023 7:00 AM CDT Clinical Communication Virtual Review in [place], [place] [address] [place] [address] 12/14/2023 8:30 AM CDT Telemedicine Department of Orthopedic Surgery in [place], [place] [address] [place] [phone] Dona Pina M.D. [address] [place] [phone] documented as of this encounter Procedures Procedure Name Priority Date/Time Associated Diagnosis Comments DX KNEE BILATERAL 4+ VIEWS RAD - Routine (most inpatients and all outpatients) 11/10/2023 10:14 AM CDT Primary Osteoarthritis Knee Bilateral documented in this encounter Results * DX Knee Bilateral 4+ Views (11/10/2023 [...] IMG DIAGNOSTIC IMAGING PROCEDU RES Final Result documented in this encounter Visit Diagnoses Diagnosis Primary Osteoarthritis Knee Bilateral documented in this encounter
--- NOTE | 2023-12-03 14:45 | CRLHL7_ITS ---
For Patients: As a result of the Century Cures Act, medical imaging exams and procedure reports are released immediately into your electronic medical record. You may view this report before your referring provider. If you have questions, please contact your health care provider. INDICATION: Embolism and thrombosis veins right lower extremity COMPARISON: None. TECHNIQUE: A compression venous ultrasound exam was performed of the right lower extremity using valenzuela-scale imaging, color Doppler and spectral Doppler analysis. FINDINGS: Sonographic imaging of the right lower extremity demonstrates normal compressibility and color Doppler venous blood flow within the common femoral vein, deep femoral vein, and the proximal greater saphenous vein. Within the thigh, the femoral vein is patent and compressible. At a lower level, the popliteal and posterior tibial veins also show normal compressibility and color Doppler venous blood flow. Limited imaging of the contralateral groin demonstrates a normal spectral waveform and color Doppler venous blood flow within the left common femoral vein. IMPRESSION: Normal venous ultrasound exam. No evidence of deep vein thrombosis within the right lower extremity. Dictated by Jeffrey Platt MD @ 12/06/2023 4:39:08 PM (Electronically Signed)
== END 2023-12-03 14:30 | disposition home or self-care (01) ==
LOC: US 14:30
PROVIDERS: PCP Internal Medicine; Visit Provider Emergency Medicine Sports Medicine
DX: I82.811 Embolism and thrombosis of superficial veins of right lower extremity (principal)
CPT/HCPCS: 93971

== ENCOUNTER 2023-12-28 09:07 | Outpatient (CLI) | payer MEDICARE, BC, SELFPAY ==
--- OUTSIDE RECORDS SUMMARY | 2024-01-01 17:49 | XMS_ITS | Encounter Summary ---
Author Organization [facility] Address [address] [place] [address] Care Team Providers Care Contract Paralegal Name Role Phone Unavailable Primary Care Provider Unavailabl e Reason for Referral * MRI/CAT/PET Scan (Routine) - Closed Specialty Diagnoses / Procedures Referred By Contac t Referred To Contact Radiology Diagnoses Pain Knee Right Pain Knee Left Procedures MR Knee Left without IV Contrast Dona Pina M.D. [address] [place] [address] Phone: tel: fax: [facility] Referral ID Status Reason Start Date Expiration Date Visits Re quested Visits Authorized [id number] Closed 11/10/2023 11/09/2024 1 1 * MRI/CAT/PET Scan (Routine) - Closed Specialty Diagnoses / Procedures Referred By Contac t Referred To Contact Radiology Diagnoses Pain Knee Right Pain Knee Left Procedures MR Knee Right without IV Contrast Dona Pina M.D. [address] [place] [address] Phone: tel: fax: [facility] Referral ID Status Reason Start Date Expiration Date Visits Re quested Visits Authorized [id number] Closed 11/10/2023 11/09/2024 1 1 Reason for Visit * MRI/CAT/PET Scan (Routine) - Closed Specialty Diagnoses / Procedures Referred By Contac t Referred To Contact Radiology Diagnoses Pain Knee Right Pain Knee Left Procedures MR Knee Left without IV Contrast Dona Pina M.D. [address] [place] [address] Phone: tel: fax: [facility] Referral ID Status Reason Start Date Expiration Date Visits Re quested Visits Authorized [id number] Closed 11/10/2023 11/09/2024 1 1 Encounter Details Date Type Department Care Team (Latest Contact Info) Description 11/30/2023 1:36 PM CDT - 11/30/2023 11:59 PM CDT Hospital Encounter Department of Radiology, [facility], in [place], [place] [address] [place] [phone] Dona Pina M.D. [address] [place] [phone] Pain Knee Right; Pain Knee Left Discharge [...] How often do you attend islam or roman catholic serv ices? Never 12/06/2020 [...] and heating? 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 2023 multivitamin tablet Take 1 tablet by mouth daily. 08/13/2021 nystatin (MYCOSTATIN) 100,000 unit/mL suspension 11/25/2020 albuterol 0.63 mg/3 mL nebulizer solution Inhale 0.63 mg by nebulization every 6 (six) hours as needed for wheezing. 4 albuterol 90 mcg/actuation inhaler 11/04/2020 4 budesonide (PULMICORT) 0.5 mg/2 mL nebulizer solution Mix 1 ampule budesonide in 8 oz saline solution. Irrigate 4 oz into each nostril twice daily. 120 mL 11 01/29/2023 6:26 AM COMMERCIAL CREDIT HEAD 06/02/2022 4 hydroCHLOROthiaz dre (HYDRODIURIL) 25 mg tablet 09/24/2020 4 documented as of this encounter Plan of [...] fat pad impingement. us Dona Pina M.D. IMRyena MRI PROCEDURES Final Resul t * MR [...] 6 images 8, 9 and series 4 [id number]) with tiny focus of reactive subchondral edema/cystic [...] the body of the report us Dona SANCHEZ MRI PROCEDURES Final Resul t documented in this encounter Visit Diagnoses Diagnosis Pain Knee Right Pain Knee Left documented in this encounter
--- OUTSIDE RECORDS SUMMARY | 2024-01-01 17:49 | XMS_ITS | Encounter Summary ---
Author Organization [facility] Address [address] [place] [address] Care Team Providers Care Linecasting Machine Keyboard Operator Name Role Phone Elsewhere, Pcp Primary Care Provider Unavailabl e Encounter Details Date Type Department Care Team (Late st Contact Info) Description 12/13/2023 Clinical Communication Department of Orthopedic Surgery in [place], [place] [address] [place] [address] Dona Pina M.D. [address] [place] [phone] Social History Tobacco Use Types Packs/Day Years [...] week 12/06/2020 How often do you attend presybeterian or muslim serv ices? Never 12/06/2020 Do you belong to any clubs o r organizations such as presybeterian groups, unions, fraternal or athletic groups, or [...] and heating? Not hard at all 12/06/2020 [facility] Occupat ional Health - [...] Dental Answer Date Recorded Dental: Regular Dentist Unknown 12/07/19 Employment Answer Date Recorded Employment status Retired 12/06/2020 Education Answer Date Recorded What is the highest level of school you have completed or the highest degree you have received? 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
--- OUTSIDE RECORDS SUMMARY | 2024-01-01 17:49 | XMS_ITS | Encounter Summary ---
Author Organization [facility] Address [address] [place] [address] Care Team Providers Care Appeals Specialist Name Role Phone Unavailable Primary Care Provider Unavailabl e Reason for Referral * Outpatient (Routine) - Closed Specialty Diagnoses / Procedures Referred By Contac t Referred To Contact Diagnoses Pain Knee Right Pain Knee Left Procedures EMG Dona Pina M.D. [address] [place] [address] Phone: tel: fax: [facility] Referral ID Status Reason Start Date Expiration Date Visits Re quested Visits Authorized [id number] Closed 11/10/2023 11/09/2024 1 1 Reason for Visit * Outpatient (Routine) - Closed Specialty Diagnoses / Procedures Referred By Landon mccauley Referred To Contact Diagnoses Pain Knee Right Pain Knee Left Procedures EMG Dona Pina M.D. [address] [place] [address] Phone: tel: fax: [facility] Referral ID Status Reason Start Date Expiration Date Visits Re quested Visits Authorized [id number] Closed 11/10/2023 11/09/2024 1 1 Encounter Details Date Type Department Care Team (Latest Contact Info) Description 12/01/2023 9:00 AM CDT - 12/01/2023 11:59 PM CDT Hospital Encounter Department of Neurology in [place], [place] [address] [place] [phone] Dona Pina M.D. [address] [place] [phone] Pain Knee Right; Pain Knee Left Discharge [...] week 12/06/2020 How often do you attend episcopalian or yazidi serv ices? Never 12/06/2020 Do you belong to any clubs o r organizations such as episcopalian groups, unions, fraternal or athletic groups, or [...] heating? 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 120 mL 11 01/29/2023 6:26 AM WEIGHT YARDAGE CHECKER 06/02/2022 4 hydroCHLOROthiaz dre (HYDRODIURIL) 25 mg [...] ? Final Report Study Number: 1 EMG Construction Ironworker Helper: Zaid Terrazas 127 or [phone] Referred by: DONA PINA (127 or [phone]) Referred for: Radiculopathy Referral Code: RX: 001 [...] left lumbosacral radiculopathy. N. Mk (127 or [phone])/SMB NERVE CONDUCTIONS ??Record Rep ?? Normal ??Normal [...] Electromyography Final Report Study Number: 1 EMG Construction Ironworker Helper: Zaid Terrazas 127 or [phone] Referred by: DONA PINA (127 or [phone]) Referred for: Radiculopathy Referral Code: RX: 001 [...] left lumbosacral radiculopathy. N. Seven (127 or [phone])/SMB NERVE CONDUCTIONS Record Rep Normal Normal Distal [...] Terrazas M.D. at 12/01/2023 11:56:05 AM CDT Dona Pina M.D. NEUROLOGY ORDERABLES Edited Re sult - Final EMG documented in this encounter Visit Diagnoses Diagnosis Pain Knee Right Pain Knee Left documented in this encounter
--- OUTSIDE RECORDS SUMMARY | 2024-01-01 17:49 | XMS_ITS | Encounter Summary ---
Author Organization [facility] Address [address] [place] [address] Care Team Providers Care Bulk Tank Driver Name Role Phone Unavailable Primary Care Provider Unavailabl e Reason for Visit * Outpatient (Routine) - Closed Specialty Diagnoses / Procedures Referred By Landon mccauley Referred To Contact Diagnoses Primary Osteoarthritis Knee Bilateral Procedures ORS US-Guided aspiration/injection Dona Pina M.D. [address] [place] [phone] Phone: tel: fax: [facility] Referral ID Status Reason Start Date Expiration Date Visits Re quested Visits Authorized [id number] Closed 10/07/2023 10/06/2024 1 1 Encounter Details Date Type Department Care Team (Latest Contact Info) Description 11/10/2023 1:00 PM CDT Procedure visit Department of Orthopedic Surgery in [place], [place] [address] [place] [phone] Dania Wilcox P.A.-Montserrat., P.A. [address] [place] [phone] Primary Osteoarthritis Knee Bilateral Social History Tobacco [...] week 12/06/2020 How often do you attend episcopal or lutheran serv ices? Never 12/06/2020 Do you belong to any clubs o r organizations such as episcopal groups, unions, fraternal or athletic groups, or [...] and heating? 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
--- OUTSIDE RECORDS SUMMARY | 2024-01-01 17:49 | XMS_ITS | Encounter Summary ---
Author Organization [facility] Address [address] [place] [address] Care Team Providers Care Managing Attorney Name Role Phone Elsewhere, Pcp Primary Care Provider Unavailabl e Encounter Details Date Type Department Care Team (Late st Contact Info) Description 11/11/2023 Clinical Communication Department of Orthopedic Surgery in [place], [place] [address] [place] [address] Dona Pina M.D. [address] [place] [phone] Social History Tobacco Use Types Packs/Day Years [...] How often do you attend mormonism or gnosticism serv ices? Never 12/06/2020 Do you belong [...] and heating? 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
--- OUTSIDE RECORDS SUMMARY | 2024-01-01 17:49 | XMS_ITS | Encounter Summary ---
Author Organization [facility] Address [address] [place] [address] Care Team Providers Care Sales Secretary Name Role Phone Elsewhere, Pcp Primary Care Provider Unavailabl e Reason for Visit * Reason Onset Date Comments Pre-visit Intake 12/09/2023 Encounter Details Date Type Department Care Team (Latest Contact Info) Description 12/09/2023 7:00 AM CDT Clinical Communication Virtual Review in [place], [place] [address] [place] [address] Pre-visit Intake Social History Tobacco Use Types Packs/Day Years [...] week 12/06/2020 How often do you attend restoration or bahai serv ices? Never 12/06/2020 Do you belong to any clubs o r organizations such as restoration groups, unions, fraternal or athletic groups, or [...] and heating? 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
--- OUTSIDE RECORDS SUMMARY | 2024-01-01 17:49 | XMS_ITS | Encounter Summary ---
Author Organization [facility] Address [address] [place] [address] Care Team Providers Care Movable Bulkhead Installer Name Role Phone Unavailable Primary Care Provider Unavailabl e Encounter Details Date Type Department Care Team (Latest Contact Info) Description 11/10/2023 11:39 AM CDT - 11/10/2023 11:59 PM CDT Hospital Encounter Department of Laboratory Medicine and Pathology, [facility], in [place], [place] [address] [place] [address] Dona Pina M.D. [address] [place] [address] Pain Knee Right; Pain Knee Left Discharge [...] How often do you attend islam or faith serv ices? 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 120 mL 11 01/29/2023 6:26 AM ASSISTANT SITE MANAGER 06/02/2022 4 hydroCHLOROthiaz dre (HYDRODIURIL) 25 mg [...] Pina M.D. LAB BLOOD ADD-ON Final Result [address] [address], [facility] [address] [address] * Vitamin B12 Assay (11/10/2023 12:00 PM [...] BLOOD ADD-ON Final Result Performing Organization Address City/[facility]/ZIP Co de Phone Number [facility] [address] [place] [address] * CRP (C-Reactive Protein) (11/10/2023 12:00 PM CDT) Pathologist [facility] C-Reactive Protein (CRP), S <3.0 <5.0 mg/L 11/10/2023 3:39 PM CDT DTL Blood (Blood, Venous) 11/10/2023 12:00 PM CDT 11/10/2023 2:59 PM CDT us Dona Pina M.D. LAB BLOOD ADD-ON Final Result Performing Organization Address [facility] Co de Phone Number [facility] [address] [place] [address] * Sedimentation Rate (11/10/2023 12:00 PM CDT) [facility] Sedimentation Rate, B 8 3 - 28 mm/h 11/10/2023 1:46 PM CDT DTL Blood (Blood, Venous) 11/10/2023 12:00 PM CDT 11/10/2023 12:18 PM CDT us Dona Pina M.D. LAB BLOOD ADD-ON Final Result Performing Organization Address City/[facility] Co de Phone Number [facility] [address] [place] [address] * CBC with Differential, Blood (11/10/2023 12:00 [...] Pina M.D. LAB BLOOD ADD-ON Final Result [facility] [address] [place] [address], [place] DTL [facility] [address] [place] [address] [facility] [address] [place] [address] documented in this encounter Visit Diagnoses Diagnosis Pain Knee Right Pain Knee Left documented in this encounter
--- OUTSIDE RECORDS SUMMARY | 2024-01-01 17:49 | XMS_ITS | Clinical Summary ---
Author Organization [facility] Address [address] [place] [address] Care Team Providers Care Program Facilitator Name Role Phone Elsewhere, Pcp Primary Care Provider Unavailabl e Source Comments Patient records contain information from all sites at [facility]. For routine questions regarding patient records, call [phone] during business hours, M-F 8:00 AM - 5:00 PM Central Time. Record requests for emergency care only can be directed to [phone] at any time.[facility] Allergies Active Allergy Reactions Criticality Noted Date Comments Cigarette Smoke Other (see comments) 11/10/2023 Smoke environmental-sneezing and coughing Mold Anaphylaxis High 05/12/2022 Medications * This document contains information received from the source organization and may not represent a complete record from that organization. nystatin (MYCOSTATIN) 100,000 unit/mL suspension 1 Active multivitamin tablet Take 1 tablet by mouth daily. 2 Active lidocaine 2 % mouth solution Take by mouth 2 (two) times a day. 4 Active albuterol 90 mcg/actuation inhaler 1 024 Discontin ued(Thera py completed ) hydroCHLOROthi azide (HYDRODIURIL) 25 mg tablet 1 024 Discontin ued(Thera py completed ) albuterol 0.63 mg/3 mL nebulizer solution Inhale 0.63 mg by nebulization every 6 (six) hours as needed for wheezing. 024 Discontin ued(Thera py completed ) budesonide (PULMICORT) 0.5 mg/2 mL nebulizer solution Mix 1 ampule budesonide in 8 oz saline solution. Irrigate 4 oz into each nostril twice daily. 120 mL 11 01/29/2023 6:26 AM CHEMICAL APPLICATOR 3 024 Discontin ued(Thera py completed ) Active Problems Problem Noted Date Diagnosed Date Chronic Cough 12/10/2020 Encounters Date Type Department Care Team Description 12/13/2023 Clinical Communication Department of Orthopedic Surgery in [place], [place] [address] [place] [phone] Dona Pina M.D. 12/09/2023 7:00 AM CDT Clinical Communication Virtual Review in [place], [place] 200 [place] [address] Pre-visit Intake 12/09/2023 Clinical Communication Department of Orthopedic Surgery in [place], [place] [address] [place] [phone] Dona Pina M.D. Follow-up (Virtual Visit - Phone? ) 12/01/2023 9:00 AM CDT - 12/01/2023 11:59 PM CDT Hospital Encounter Department of Neurology in [place], [place] [address] [place] [phone] Dona Pina M.D. Pain Knee Right; Pain Knee Left Discharge Disposition: Home or Self Care 11/30/2023 1:36 PM CDT - 11/30/2023 11:59 PM CDT Hospital Encounter Department of Radiology, [facility], in [place], [place] [address] [place] [phone] Dona Pina M.D. Pain Knee Right; Pain Knee Left Discharge Disposition: Home or Self Care 11/30/2023 Orders Only Department of Orthopedic Surgery in [place], [place] [address] [place] [phone] Dona Pina M.D. 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 11/10/2023 1:00 PM CDT Procedure visit Department of Orthopedic Surgery in [place], [place] [address] [place] [address] Dania Wilcox P.A.-C., P.A. Primary Osteoarthritis Knee Bilateral 11/10/2023 11:39 AM CDT - 11/10/2023 11:59 PM CDT [facility] [place] [place] [address] [place] [phone] Dona Pina M.D. Pain Knee Right; Pain Knee Left Discharge Disposition: Home or Self Care 11/10/2023 10:30 AM CDT Comprehensive Visit Department of Orthopedic Surgery in [place], [place] [address] [place] [phone] Dona Pina M.D. Pain Knee Right; Pain Knee Left 11/10/2023 8:38 AM CDT - 11/10/2023 11:38 AM CDT [facility] [place] [place] [address] [place] [phone] Dona Pina M.D. Primary Osteoarthritis Knee Bilateral Discharge Disposition: Home or Self Care 10/07/2023 Orders Only Department of Orthopedic Surgery in [address] [phone] Elda Sotelo R.N. Primary Osteoarthritis Knee Bilateral (Primary Dx) 10/01/2023 Clinical Communication Department of Orthopedic Surgery in [place], [place] [address] [place] [phone] Prescheduling, Provider from Last 3 Months Immunizations Name Administration Dates Next Due H1N1 All Forms 02/04/2009 HZV (ZOSTAVAX) 11/25/2012 HepA Adult 01/14/2004 HepB Adult 10/05/2003 Influenza, Seasonal, Injectable 12/09/2007,12/01,12/20/2002 Influenza, Unspecified 11/09/2008 PCV13 11/19/2014 PPSV23 12/17/2009 RZV (SHINGRIX) 2019,,05/24/2018,2018 SARS-COV-2 (COVID-19) - MODERNA(Discontinued) 12/12/2020 Td (Adult), [...] How often do you attend taoist or nondenominational serv ices? Never 12/06/2020 Do you belong [...] and heating? Not hard at all 12/06/2020 [facility] Occupational Stress Questionnaire Answer Date [...] Answer Date Recorded Dental: Regular Dentist Unknown 10/22/20 24 Employment Answer Date Recorded Employment status Retired 12/06/2020 Education Answer Date Recorded What is the highest level of school you have completed or the highest degree you have received? 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 Gender Identity Male 12/06/2020 11:11 AM CDT [...] Done Comments Hepatitis C Screening 1945 Hepatitis B Vaccines (3 of 3 - 19+ 3-dose series) 02/05/2021 12/11/2020, 10/05/2003 Depression Screening (Annual PHQ-2) 02/15/2023 Fall Risk Screen (Annual) 02/15/2023 DTaP,Tdap,and Td Vaccines (3 - Td or Tdap) 04/07/2033 04/07/2023, 11/21/2013, 10/05/2003 Pneumococcal vaccine (65+ years) Completed 11/19/2014, 12/17/2009 Zoster Vaccines Completed 2019, 08/2018, 05/24/2018, Additional history exists RSV vaccine - (32-36 weeks) or 60+ years Completed 10/23/2022, 10/08/2022 COVID-19 Vaccine Completed 10/19/2023, , 05/04/2023, Additional history exists Influenza Vaccine Completed 11/05/2023, , 10/29/2021, Additional history exists IPV Vaccines Aged Out No longer eligi ble based on patient's age to complete this topic Procedures Procedure Name Priority Date/Time Associated Diagnosis [...] CDT Pain Knee Right Pain Knee Left CA ARTHCS ASP/INJ MJR JT W US Routine [...] Final Report Study Number: 1 EMG Construction Specialist: Zaid Terrazas 127 or [phone] Referred by: DONA PINA (127 or [phone]) Referred for: Radiculopathy Referral Code: RX: 001 [...] left lumbosacral radiculopathy. N. Seven (127 or [phone])/SMB NERVE CONDUCTIONS ??Record Rep ?? Normal ??Normal [...] Final Report Study Number: 1 EMG Construction Specialist: Zaid Terrazas 127 or [phone] Referred by: DONA PINA (127 or [phone]) Referred for: Radiculopathy Referral Code: RX: 001 [...] left lumbosacral radiculopathy. N. Mk (127 or [phone])/SMB NERVE CONDUCTIONS Record Rep Normal Normal Distal [...] ORDERABLES Edited Re sult - Final EMG * MR Knee Left without IV [...] 6 images 8, 9 and series 4 [id number]) with tiny focus of reactive subchondral edema/cystic [...] IMG MRI PROCEDURES Final Resul t * CA ARTHCS ASP/INJ MJR JT W US (11/10/2023 [...] ORDER FABIOLA Final Result Performing Organization Address [facility] de Phone Number MMODAL NA * Sedimentation Rate (11/10/2023 12:00 PM CDT) Sedimentation Rate, B 8 3 - 28 mm/h 11/10/2023 1:46 PM CDT DTL Blood (Blood, Venous) 11/10/2023 12:00 PM CDT 11/10/2023 12:18 PM CDT Dona Pina M.D. LAB BLOOD ADD-ON Final Result Performing Organization Address [facility] de Phone Number [facility] [address] [place] [address], [facility] DTL [facility] 200 [place] [address] * CBC with Differential, Blood (11/10/2023 12:00 [...] Pina M.D. LAB BLOOD ADD-ON Final Result [facility] [address] [place], [place] [address] [address] [place] [address] [facility] [address] [place] [address] * CRP (C-Reactive Protein) (11/10/2023 12:00 PM CDT) [facility] C-Reactive Protein (CRP), S <3.0 <5.0 mg/L 11/10/2023 3:39 PM CDT DTL Blood (Blood, Venous) 11/10/2023 12:00 PM CDT 11/10/2023 2:59 PM CDT us Dona Pina M.D. LAB BLOOD ADD-ON Final Result [facility] [address] [place], [place] [address] [address] [place] [address] * Folate (11/10/2023 12:00 PM CDT) [facility] Folate, S >20.0 >=4.0 mcg/L 11/11/2023 7: 54 AM CDT DT Blood (Blood, Venous) 11/10/2023 12:00 PM CDT 11/10/2023 2:59 PM CDT us Dona Pina M.D. LAB BLOOD ADD-ON Final Result [facility] [address] [place], [place] [address] [address] [place] [address] * Vitamin B12 Assay (11/10/2023 12:00 PM CDT) [facility] Vitamin B12 Assay, S 455 180 - 914 ng/L 11/11/2023 8:24 AM CDT [facility] Comment: ----ADDITIONAL INFORMATION---- In patients being evaluated [...] Pina M.D. LAB BLOOD ADD-ON Final Result [facility] [address] [place] [address], [facility] [address] [place] [address] * DX Knee Bilateral 4+ Views (11/10/2023 [...] Result from Last 3 Months Insurance MEDICARE [facility] Care Teams Program Facilitator Relationship Specialty Start Date End Date Elsewhere, Pcp PCP - General Internal Medicine 12/09/23
--- OUTSIDE RECORDS SUMMARY | 2024-01-01 17:49 | XMS_ITS | Referral Summary ---
Author Organization [facility] Address [address] [place] [address] Care Team Providers Care Chemical Pumper Name Role Phone Elsewhere, Pcp Primary Care Provider Unavailabl e Source Comments Patient records contain information from all sites at [facility]. For routine questions regarding patient records, call [phone] during business hours, M-F 8:00 AM - 5:00 PM Central Time. Record requests for emergency care only can be directed to [phone] at any time.[facility] Encounters Date Type Department Care Team Description 12/13/2023 Clinical Communication Department of Orthopedic Surgery in [place], [place] [address] [place] [phone] Dona Pina M.D. 12/09/2023 Clinical Communication Department of Orthopedic Surgery in [address] [phone] Dona Pina M.D. Follow-up (Virtual Visit - Phone? ) 12/09/2023 7:00 AM CDT Clinical Communication Virtual Review in [place], [place] 200 [place] [address] Pre-visit Intake 12/01/2023 9:00 AM CDT - 12/01/2023 11:59 PM CDT Hospital Encounter Department of Neurology in [address] [phone] Dona Pina M.D. Pain Knee Right; Pain Knee Left Discharge Disposition: Home or Self Care 11/30/2023 Orders Only Department of Orthopedic Surgery in [address] [phone] Dona Pina M.D. 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 Pain Knee Right; Pain Knee Left Discharge Disposition: Home or Self Care 11/11/2023 Clinical Communication Department of Orthopedic Surgery in [place], [place] [address] [place] [phone] Dona Pina M.D. 11/10/2023 11:39 AM CDT - 11/10/2023 11:59 PM CDT Hospital Encounter [facility] [place], [place] [address] [place] [phone] Dona Pina M.D. Pain Knee Right; Pain Knee Left Discharge Disposition: Home or Self Care 11/10/2023 1:00 PM CDT Procedure visit Department of Orthopedic Surgery in [place], [place] [address] [place] [phone] Dania Wilcox P.A.-C., P.A. Primary Osteoarthritis Knee Bilateral 11/10/2023 10:30 AM CDT Comprehensive Visit Department of Orthopedic Surgery in [place], [place] [address] [place] [phone] Dona Pina M.D. Pain Knee Right; Pain Knee Left 11/10/2023 8:38 AM CDT - 11/10/2023 11:38 AM CDT Hospital Encounter Department of Radiology, [facility], in [place], [place] [address] [place] [phone] Dona Pina M.D. Primary Osteoarthritis Knee Bilateral Discharge Disposition: Home or Self Care 10/07/2023 Orders Only Department of Orthopedic Surgery in [place], [place] [address] [place] [phone] Elda Sotelo R.N. Primary Osteoarthritis Knee Bilateral (Primary Dx) 10/01/2023 Clinical Communication Department of Orthopedic Surgery in [place], [place] [address] [place] [address] Prescheduling, Provider from Last 3 Months Allergies Active Allergy [...] daily. 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 Never 12/06/2020 Do you belong to any clubs o r organizations such as muslim groups, unions, fraternal or athletic groups, or [...] and heating? 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 Final Report Study Number: 1 EMG Quantitative Analyst Marketing: Zaid Terrazas 127 or [phone] Referred by: DONA PINA (127 or [phone]) Referred for: Radiculopathy Referral Code: RX: 001 [...] left lumbosacral radiculopathy. N. Mk (127 or [phone])/SMB NERVE CONDUCTIONS ??Record Rep ?? Normal ??Normal [...] Electromyography Final Report Study Number: 1 EMG Quantitative Analyst Marketing: Zaid Terrazas 127 or [phone] Referred by: DONA PINA (127 or [phone]) Referred for: Radiculopathy Referral Code: RX: 001 [...] left lumbosacral radiculopathy. N. Seven (127 or [phone])/SMB NERVE CONDUCTIONS Record Rep Normal Normal Distal [...] 6 images 8, 9 and series 4 [id number]) with tiny focus of reactive subchondral edema/cystic [...] IMG MRI PROCEDURES Final Resul t * [place] ARTHCS ASP/INJ MJR JT W US (11/10/2023 [...] ORDER FABIOLA Final Result Performing Organization Address City/[facility]/ZIP Co de Phone Number MMODAL NA * Sedimentation Rate (11/10/2023 12:00 PM CDT) Sedimentation Rate, B 8 3 - 28 mm/h 11/10/2023 1:46 PM CDT DTL Blood (Blood, Venous) 11/10/2023 12:00 PM CDT 11/10/2023 12:18 PM CDT us Dona Pina M.D. LAB BLOOD ADD-ON Final Result Performing Organization Address City/[facility]/ZIP Co de Phone Number [facility] [address] [place] [address], [facility] 200 [place] [address] * CBC with Differential, Blood (11/10/2023 12:00 PM CDT) Pathologist [facility] Hemoglobin 14.3 13.2 - 16.6 g/dL 11/10/2023 [...] Pina M.D. LAB BLOOD ADD-ON Final Result [facility] [address] [place] [address] * CRP (C-Reactive Protein) (11/10/2023 12:00 PM CDT) Pathologist [facility] C-Reactive Protein (CRP), S <3.0 <5.0 mg/L 11/10/2023 3:39 PM CDT DTL Blood (Blood, Venous) 11/10/2023 12:00 PM CDT 11/10/2023 2:59 PM CDT us Dona Pina M.D. LAB BLOOD ADD-ON Final Result [facility] [address] [place], [place] [phone] [place] [address] * Folate (11/10/2023 12:00 PM CDT) Folate, S >20.0 >=4.0 mcg/L 11/11/2023 7: 54 AM CDT DTL Blood (Blood, Venous) 11/10/2023 12:00 PM CDT 11/10/2023 2:59 PM CDT Dona Pina M.D. LAB BLOOD ADD-ON Final Result Performing Organization Address [facility] Co de Phone Number [facility] [address] [place], [place] [phone] [place] [address] 200 [place] [address] * Vitamin B12 Assay (11/10/2023 12:00 PM CDT) [facility] Vitamin B12 Assay, S [id number] 180 - [...] BLOOD ADD-ON Final Result Performing Organization Address [facility] Co de Phone Number [facility] [address] [place] [address], [facility] [address] [place] [address] * DX Knee Bilateral 4+ Views (11/10/2023 [...] Mild degenerative changes of both knees. Dona GONZALEZG DIAGNOSTIC IMAGING PROCEDU RES Final Result from Last 3 Months Insurance MEDICARE [facility] Care Teams Chemical Pumper Relationship Specialty Start Date End Date Elsewhere, Pcp PCP - General Internal Medicine 12/09/23
--- OUTSIDE RECORDS SUMMARY | 2024-01-01 17:49 | XMS_ITS | Encounter Summary ---
Author Organization [facility] Address [address] [place] [address] Care Team Providers Care Senior Wind Energy Consultant Name Role Phone Unavailable Primary Care Provider Unavailabl e Encounter Details Date Type Department Care Team (Late st Contact Info) Description 11/30/2023 Orders Only Department of Orthopedic Surgery in [place], [place] [address] [place] [address] Dona Pina M.D. [address] [place] [phone] Embolism And Thrombosis Of Superficial Veins Of [...] week 12/06/2020 How often do you attend mandaeism or confucianist serv ices? Never 12/06/2020 Do you belong to any clubs o r organizations such as mandaeism groups, unions, fraternal or athletic groups, or [...] and heating? 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
--- OUTSIDE RECORDS SUMMARY | 2024-01-01 17:49 | XMS_ITS ---
Author Organization [facility] Address [address] [place] [address] Care Team Providers Care Head Start Coordinator Name Role Phone Unavailable Unavailable Unavailable Surgery Details Not on file Complications Check Surgery Details section. Procedure Estimated Blood Loss Check Surgery Details section. Procedure Findings Check Surgery Details section. Procedure Specimens Taken Check Surgery Details section.
--- OUTSIDE RECORDS SUMMARY | 2024-01-01 17:49 | XMS_ITS | Encounter Summary ---
Author Organization [facility] Address [address] [place] [address] Care Team Providers Care Veneer Jointer Name Role Phone Elsewhere, Pcp Primary Care Provider Unavailabl e Reason for Visit * Reason Onset Date Comments Follow-up 12/09/2023 Virtual Visit - Phone? Encounter Details Date Type Department Care Team (Latest Contact Info) Description 12/09/2023 Clinical Communication Department of Orthopedic Surgery in [place], [place] [address] [place] [address] Dona Pina M.D. [address] [place] [phone] Follow-up (Virtual Visit - Phone? ) Social History Tobacco Use Types Packs/Day Years [...] week 12/06/2020 How often do you attend tenriism or temple serv ices? Never 12/06/2020 Do you belong to any clubs o r organizations such as tenriism groups, unions, fraternal or athletic groups, or [...] and heating? Not hard at all 12/06/2020 [facility] [place] of Occupat ional Health - Occupational Stress [...] place to sleep or slept in a penitentiary (including now)? 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
--- OUTSIDE RECORDS SUMMARY | 2024-01-01 17:50 | XMS_ITS | Encounter Summary ---
Author Organization [facility] Address [address] [place] [address] Care Team Providers Care Motorcycle Service Technician Name Role Phone Unavailable Primary Care Provider Unavailabl e Reason for Referral * Outpatient (Routine) - Closed Specialty Diagnoses / Procedures Referred By Contac t Referred To Contact Diagnoses Pain Knee Right Pain Knee Left Procedures EMG Dona Pina M.D. [address] [place] [address] Phone: tel: fax: [facility] Referral ID Status Reason Start Date Expiration Date Visits Re quested Visits Authorized [id number] Closed 11/10/2023 11/09/2024 1 1 * MRI/CAT/PET Scan (Routine) - Closed Specialty Diagnoses / Procedures Referred By Contac t Referred To Contact Radiology Diagnoses Pain Knee Right Pain Knee Left Procedures MR Knee Left without IV Contrast Dona Pina M.D. [address] [place] [address] Phone: tel: fax: [facility] Referral ID Status Reason Start Date Expiration Date Visits Re quested Visits Authorized [id number] Closed 11/10/2023 11/09/2024 1 1 * MRI/CAT/PET Scan (Routine) - Closed Specialty Diagnoses / Procedures Referred By Contac t Referred To Contact Radiology Diagnoses Pain Knee Right Pain Knee Left Procedures MR Knee Right without IV Contrast Dona Pina M.D. [address] [place] [address] Phone: tel: fax: [facility] Referral ID Status Reason Start Date Expiration Date Visits Re quested Visits Authorized [id number] Closed 11/10/2023 11/09/2024 1 1 Reason for Visit * Reason Comments Pain Pain * Outpatient (Routine) - Closed Specialty Diagnoses / Procedures Referred By Contdemian t Referred To Contact Orthopedic Surgery Diagnoses Pain Knee Right Pain Knee Left Jono Ross M.D. [address] [place] [phone] Phone: tel: fax: [facility] Referral ID Status Reason Start Date Expiration Date Visits Re quested Visits Authorized [id number] Closed 09/16/2023 03/17/2025 1 1 Encounter Details Date Type Department Care Team (Latest Contact Info) Description 11/10/2023 10:30 AM CDT Comprehensive Visit Department of Orthopedic Surgery in [place], [place] [address] [place] [address] Dona Pina M.D. [address] [place] [address] Pain Knee Right; Pain Knee Left Social [...] How often do you attend christian or shinto serv ices? Never 12/06/2020 Do you belong [...] and heating? 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 Discussed: [...] ? Final Report Study Number: 1 EMG Warp Coiler: Zaid Terrazas 127 or [phone] Referred by: DONA PINA (127 or [phone]) Referred for: Radiculopathy Referral Code: RX: 001 [...] left lumbosacral radiculopathy. N. Seven (127 or [phone])/SMB NERVE CONDUCTIONS ??Record Rep ?? Normal ??Normal [...] Electromyography Final Report Study Number: 1 EMG Warp Coiler: Zaid Terrazas 127 or [phone] Referred by: DONA PINA (127 or [phone]) Referred for: Radiculopathy Referral Code: RX: 001 [...] left lumbosacral radiculopathy. N. Mk (127 or [phone])/SMB NERVE CONDUCTIONS Record Rep Normal Normal Distal [...] 6 images 8, 9 and series 4 [id number]) with tiny focus of reactive subchondral edema/cystic [...] t * Folate (11/10/2023 12:00 PM CDT) [facility] Folate, S >20.0 >=4.0 mcg/L 11/11/2023 7: 54 AM CDT DTL Blood (Blood, Venous) 11/10/2023 12:00 PM CDT 11/10/2023 2:59 PM CDT Dona Pina M.D. LAB [place] [address] * Vitamin B12 Assay (11/10/2023 12:00 PM CDT) [facility] Vitamin B12 Assay, S 455 180 - [...] Pina M.D. LAB [place] [address] * CRP (C-Reactive Protein) (11/10/2023 12:00 PM CDT) [facility] C-Reactive Protein (CRP), S <3.0 <5.0 mg/L 11/10/2023 3:39 PM CDT DTL Blood (Blood, Venous) 11/10/2023 12:00 PM CDT 11/10/2023 2:59 PM CDT us Dona Pina M.D. LAB BLOOD ADD-ON Final Result Performing Organization Address City/[facility]/ZIP Co de Phone Number [facility] [address] [place] [address], [facility] [address] [place] [address] * Sedimentation Rate (11/10/2023 12:00 PM CDT) [facility] Sedimentation Rate, B 8 3 - 28 mm/h 11/10/2023 1:46 PM CDT DTL Blood (Blood, Venous) 11/10/2023 12:00 PM CDT 11/10/2023 12:18 PM CDT us Dona Pina M.D. LAB BLOOD ADD-ON Final Result Performing Organization Address [facility] Co de Phone Number [facility] [address] [place] [address], [facility] [address] [place] [address] * CBC with Differential, Blood (11/10/2023 12:00 PM CDT) [facility] Hemoglobin 14.3 13.2 - 16.6 g/dL 11/10/2023 [...] Pina M.D. LAB BLOOD ADD-ON Final Result [facility] [address] [place] [address], [facility] DTL [facility] [address] [place] [address] DHPM [facility] [address] [place] [address] documented in this encounter Visit Diagnoses Diagnosis Pain Knee Right Pain Knee Left Pain Knee Right Pain Knee Left Pain Knee Right Pain Knee Left documented in this encounter
--- OUTSIDE RECORDS SUMMARY | 2024-01-01 17:50 | XMS_ITS | Encounter Summary ---
Author Organization [facility] Address [address] [place] [address] Care Team Providers Care Riding Teacher Name Role Phone Unavailable Primary Care Provider Unavailabl e Reason for Visit * Outpatient (Routine) - Closed Specialty Diagnoses / Procedures Referred By Landon mccauley Referred To Contact Diagnoses Primary Osteoarthritis Knee Bilateral Procedures DX Knee Bilateral 4+ Views DX Knee Bilateral Standing 3 Views DX Knee Bilateral 1 View Dona Pina M.D. [address] [place] [address] Phone: tel: fax: [facility] Referral ID Status Reason Start Date Expiration Date Visits Re quested Visits Authorized [id number] Closed 10/07/2023 10/06/2024 1 1 Encounter Details Date Type Department Care Team (Latest Contact Info) Description 11/10/2023 8:38 AM CDT - 11/10/2023 11:38 AM CDT Hospital Encounter Department of Radiology, [facility], in [place], [place] [address] [place] [phone] Dona Pina M.D. [address] [place] [phone] Primary Osteoarthritis Knee Bilateral Discharge Disposition: Home [...] week 12/06/2020 How often do you attend spiritism or denominational serv ices? Never 12/06/2020 Do you belong to any clubs o r organizations such as spiritism groups, unions, fraternal or athletic groups, or [...] heating? 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 120 mL 11 01/29/2023 6:26 AM PATTERN HANGER 06/02/2022 4 hydroCHLOROthiaz dre (HYDRODIURIL) 25 mg [...]
--- OUTSIDE RECORDS SUMMARY | 2024-01-01 17:50 | XMS_ITS | Encounter Summary ---
Author Organization [facility] Address [address] [place] [id number] Care Team Providers Care Reefer Engineer Name Role Phone Unavailable Primary Care Provider Unavailabl e Reason for Referral * Outpatient (Routine) - Closed Specialty Diagnoses / Procedures Referred By Landon mccauley Referred To Contact Diagnoses Primary Osteoarthritis Knee Bilateral Procedures ORS US-Guided aspiration/injection Dona Pina M.D. [address] [place] [phone] Phone: tel: fax: [facility] Referral ID Status Reason Start Date Expiration Date Visits Re quested Visits Authorized [id number] Closed 10/07/2023 10/06/2024 1 1 Encounter Details Date Type Department Care Team (Late st Contact Info) Description 10/07/2023 Orders Only Department of Orthopedic Surgery in [place], [place] [address] [place] [phone] Elda Sotelo R.N. [address] [place] [phone] Primary Osteoarthritis Knee Bilateral (Primary Dx) Social [...] week 12/06/2020 How often do you attend quaker or restoration serv ices? Never 12/06/2020 Do you belong to any clubs o r organizations such as quaker groups, unions, fraternal or athletic groups, or [...] and heating? Not hard at all 12/06/2020 [facility] [place] of Occupat ional Health - Occupational Stress [...] place to sleep or slept in a custodial (including now)? 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
--- OUTSIDE RECORDS SUMMARY | 2024-01-01 17:50 | XMS_ITS | Encounter Summary ---
Author Organization [facility] Address [address] [place] [address] Care Team Providers Care Executive Talent Acquisition Consultant Name Role Phone Unavailable Primary Care Provider Unavailabl e Encounter Details Date Type Department Care Team (Late st Contact Info) Description 10/01/2023 Clinical Communication Department of Orthopedic Surgery in [place], [place] [address] [place] [address] Prescheduling, Provider Social History Tobacco Use Types [...] week 12/06/2020 How often do you attend mosque or zoroastrianism serv ices? 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
--- OUTSIDE RECORDS SUMMARY | 2024-01-01 17:50 | XMS_ITS | Encounter Summary ---
Author Organization [facility] Address [address] [place] [address] Care Team Providers Care Health Evaluator Name Role Phone Unavailable Primary Care Provider Unavailabl e Reason for Referral * Outpatient (Routine) - Closed Specialty Diagnoses / Procedures Referred By Landon mccauley Referred To Contact Orthopedic Surgery Diagnoses Pain Knee Right Pain Knee Left Jono Ross M.D. [address] [place] [address] Phone: tel: fax: [facility] Referral ID Status Reason Start Date Expiration Date Visits Re quested Visits Authorized [id number] Closed 09/16/2023 03/17/2025 1 1 Encounter Details Date Type Department Care Team (Late st Contact Info) Description 09/16/2023 [facility] [address] [place] [address] Jono Ross M.D. [address] [place] [phone] Pain Knee Right (Primary Dx); Pain Knee [...] week 12/06/2020 How often do you attend jewish or hindu serv ices? Never 12/06/2020 Do you belong to any clubs o r organizations such as jewish groups, unions, fraternal or athletic groups, or [...] and heating? 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
--- OUTSIDE RECORDS SUMMARY | 2024-01-01 17:50 | XMS_ITS | Clinical Summary ---
Author Organization [facility] Address [place], [place] [address] Care Team Providers Care Collar Feller Name Role Phone Jono Ross MD Primary [...] Influenza for age 65+ 10/17/2023 Care Teams Collar Feller Relationship Specialty Start Date End Date Jono Ross MD [address] [place] [address] PCP - General 06/23/11
== END 2023-12-28 09:08 | disposition home or self-care (01) ==
LOC: NFLDREF 01-01 17:47
PROVIDERS: PCP Internal Medicine; Referring Provider Internal Medicine; Visit Provider Internal Medicine
DX: Z00.00 Encounter for general adult medical examination without abnormal findings (principal); I10 Essential (primary) hypertension; E78.5 Hyperlipidemia, unspecified; Z12.5 Encounter for screening for malignant neoplasm of prostate; Z13.9 Encounter for screening, unspecified
CPT/HCPCS: 80053; 80061; G0103

== ENCOUNTER 2024-06-17 14:27 | Emergency (ER) | payer MEDICARE, BC, SELFPAY ==
[2024-06-17] VITALS (10 sets, daily range): BP systolic 145–159; BP diastolic 68–72; PULSE 81–90; RESP 9–17; TEMP 36.8; O2SAT 97–99; BMI 24.0
--- OUTSIDE RECORDS SUMMARY | 2024-06-17 14:29 | XMS_ITS | Clinical Summary ---
Author Organization [facility] Address [address] [place] [address] Care Team Providers Care Construction Plumber Name Role Phone None Reported, Pcp Primary Care Provider Unavail able Source Comments Patient records contain information from all sites at [facility]. For routine questions regarding patient records, call [phone] during business hours, M-F 8:00 AM - 5:00 PM Central Time. Record requests for emergency care only can be directed to [phone] at any time.[facility] Allergies Active Allergy Reactions Criticality Noted Date Comments Cigarette Smoke Other (see comments) 11/10/2023 Smoke environmental-sneezing and coughing Mold Anaphylaxis High 05/12/2022 Medications * This document contains information received from the source organization and may not represent a complete record from that organization. nystatin (MYCOSTATIN) 100,000 unit/mL suspension 11/25/2020 Active multivitamin tablet Take 1 tablet by mouth daily. 08/13/2021 Active lidocaine 2 % mouth solution Take by mouth 2 (two) times a day. 2023 Active Active Problems Problem Noted Date Diagnosed Date Chronic Cough 12/10/2020 Immunizations Immunization Administration Dates Next Due H1N1 All Forms [...] How often do you attend jewish or cheondoism serv ices? Never 12/06/2020 Do [...] and heating? 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 Gender Identity Male 12/06/2020 11:11 AM CDT Sexual Orientation Choose not to disclose 2020 11:11 AM CDT Last Filed Vital Signs Vital Sign Reading Time Taken Comments Blood Pressure 141/67 12/10/2020 1:08 PM CDT Pulse 97 12/10/2020 1:08 PM CDT Temperature 36.6 C (97.9 F) 06/02/2022 1:47 PM CDT Respiratory Rate - - Oxygen Saturation 98% [...] 02/05/2021 12/11/2020, 10/05/2003 Depression Screening (Annual PHQ-2) 02/16/2024 Fall Risk Screen (Annual) 02/16/2024 COVID-19 Vaccine (2023- season) 2024 10/19/2023, 08/11/2023, 05/04/2023, Additional history exists DTaP,Tdap,and Td Vaccines (3 - Td or Tdap) 04/07/2033 04/07/2023, 11/21/2013, 10/05/2003 Pneumococcal vaccine (50+ years) Completed 11/19/2014, 12/17/2009 Zoster Vaccines Completed 2019, 08/2018, 05/24/2018, Additional history exists RSV vaccine - (32-36 weeks) or 60+ years Completed 10/23/2022, 10/08/2022 Influenza Vaccine Completed 11/05/2023, , 10/29/2021, Additional history exists IPV Vaccines Aged Out No longer eligi ble based on patient's age to complete this topic Insurance MEDICARE [facility] Care Teams Construction Plumber Relationship Specialty Start Date End Date None Reported, Pcp PCP - General 12/24/23
--- NOTE | 2024-06-17 14:59 | CRLHL7_ITS ---
For Patients: As a result of the Century Cures Act, medical imaging exams and procedure reports are released immediately into your electronic medical record. You may view this report before your referring provider. If you have questions, please contact your health care provider. INDICATION: Lower chest pain. TECHNIQUE: Abdominal radiographs, 2 views. COMPARISON: Abdominal radiographs 03/12/2023. FINDINGS: Lower chest: Unremarkable. Bowel: There are nondistended loops of small bowel with air-fluid levels diffusely. No bowel obstruction. Moderate colonic stool burden, correlate for constipation. Soft tissues: Unremarkable. Bones: No acute osseous abnormalities. Mild degenerative changes of the lumbar spine. IMPRESSION: Nondistended loops of small bowel with air-fluid levels, suggestive of a nonspecific enteritis. No bowel obstruction. Dictated by Misael De La Garza MD @ 06/17/2024 3:35:19 PM (Electronically Signed)
--- NOTE | 2024-06-17 14:59 | CRLHL7_ITS ---
For Patients: As a result of the Cures Act, medical imaging exams and procedure reports are released immediately into your electronic medical record. You may view this report before your referring provider. If you have questions, please contact your health care provider. Indication: Lower chest pain. Excessive burping. Technique: Chest 2 views. Comparison: Chest radiograph 06/30/2020. Findings: The cardiomediastinal silhouette size is normal. There is no focal pulmonary opacity, pleural effusion or pneumothorax. The visualized osseous structures are unremarkable for age. Impression: No acute cardiopulmonary abnormality. Dictated by Dorothy Lazo MD @ 06/17/2024 3:34:12 PM (Electronically Signed)
--- NOTE | 2024-06-17 15:14 | ED_ITS ---
HPI - Chest Pain General Date Seen: 06/17/24 Chief Complaint: Chest Pain Stated Complaint: chest pains, burping Time Seen by Provider: 06/17/24 14:31 Source: patient, family, RN notes reviewed and old records reviewed Mode of arrival: ambulatory Limitations: no limitations History of Present Illness HPI narrative: Patient is a very nice 78-year-old gentleman who presents here for evaluation of what he describes as chest pain, this occurred and is low part of his chest, started approximately at noon, lasted for about 30 minutes, he felt lightheaded, with this he was burping, felt like his ribs remain pushed apart. Describes the pain as some of the worst he has ever experienced but currently really has no pain now. These worried about his heart, he was seen yesterday for constipation since then he has taken 3 doses of MiraLax with only small about a liquid stool since. Eating and drinking normally. Does have a history of chronic constipation and problems with bowel movements. Has also pain in his right shoulder. Presents here with his significant other no fevers chills or no radiation of discomfort describes no current sweating or pressure sensation no wheezes or coronary artery disease. No leg swelling. MD complaint: chest heaviness Onset (ago): hour(s) Timing of current episode: episodic Prior episodes: Yes Onset: during rest Pain radiation: none Severity: moderate Quality: fullness and crushing Relieving factors: nothing Exacerbating factors: nothing Treatment prior to arrival: none Risk Factors Coronary artery disease risk factors: none Thoracic aortic dissection risk factors: none Related Data Home Medications ?Medication ?Instructions ?Recorded ?Confirmed multivitamin (Multiple Vitamins 1 tab PO QAM 08/13/21 06/16/24 tablet) omeprazole 20 mg tablet,delayed 20 mg PO QDAY 06/16/24 06/16/24 release Previous Rx's ?Medication ?Instructions ?Recorded lidocaine HCl 2 % mucosal solution 1 applic mucous membrane BID PRN 02/24/24 pain #600 mL polyethylene glycol 3350 17 gram 17 g PO BID #100 ea 06/16/24 oral powder packet (Miralax) Allergies Allergy/AdvReac Type Severity Reaction Status Date / Time Molds & Smuts Allergy Unknown Uncoded 06/16/24 14:11 Review of Systems Status of ROS Reports: 10 or more systems reviewed and unremarkable except as noted in History and below [facility] Medical History Thrush ?B37.0 - Candidal stomatitis (ICD-10) H/O oral aphthous ulcers ?Z87.19 - Personal history of other diseases of the digestive system (ICD-10) Bilateral knee pain ?M25.561 - Pain in right knee (ICD-10) ?M25.562 - Pain in left knee (ICD-10) Hearing loss ?H91.90 - Unspecified hearing loss, unspecified ear (ICD-10) Change in bowel function ?R19.8 - Other specified symptoms and signs involving the digestive system and abdomen (ICD-10) Hyperlipidemia (12/10/08) ?E78.5 - Hyperlipidemia, unspecified (ICD-10) Weight decrease ?R63.4 - Abnormal weight loss (ICD-10) Diverticulitis ?K57.92 - Diverticulitis of intestine, part unspecified, without perforation or abscess without bleeding (ICD-10) Acute meniscal tear of knee ?S83.209A - Unspecified tear of unspecified meniscus, current injury, unspecified knee, initial encounter (ICD-10) Chronic cough ?R05.3 - Chronic cough (ICD-10) Kidney calculus (12/10/08) ?N20.0 - Calculus of kidney (ICD-10) Hypertension (12/10/08) ?I10 - Essential (primary) hypertension (ICD-10) Gastroesophageal reflux (12/10/08) ?K21.9 - Gastro-esophageal reflux disease without esophagitis (ICD-10) Dupuytren's contracture of left hand ?M72.0 - Palmar fascial fibromatosis [Dupuytren] (ICD-10) Neuropathy of left ulnar nerve at wrist ?G56.22 - Lesion of ulnar nerve, left upper limb (ICD-10) Obesity with body mass index greater than 30 ?E66.9 - Obesity, unspecified (ICD-10) Laceration of scalp ?S01.01XA - Laceration without foreign body of scalp, initial encounter (ICD- 10) Kidney calculus (12/10/08) ?N20.0 - Calculus of kidney (ICD-10) Knee pain ?M25.569 - Pain in unspecified knee (ICD-10) Allergies ?T78.40XA - Allergy, unspecified, initial encounter (ICD-10) BPH (benign prostatic hyperplasia) ?N40.0 - Benign prostatic hyperplasia without lower urinary tract symptoms (ICD-10) Sacroiliac pain ?M53.3 - Sacrococcygeal disorders, not elsewhere classified (ICD-10) Surgical History History of ear surgery (~1970) ?Z98.890 - Other specified postprocedural states (ICD-10) H/O cataract extraction ?Z98.49 - Cataract extraction status, unspecified eye (ICD-10) Status post bilateral hernia repair ?Z98.890 - Other specified postprocedural states (ICD-10) ?Z87.19 - Personal history of other diseases of the digestive system (ICD-10) S/P trigger finger release (07/31/21) ?Z98.890 - Other specified postprocedural states (ICD-10) Family History Father Alcohol dependence Mother No problems noted. Social History Narrative: Patient is retired and lives with Marky - she would be medical decision maker if needed. Two adult children in [place]. Rolando requests full code status, but never wants to be alive on a machine for any extended period of time. Former smoker, quit in 1985 with an approximate 20 pack year history. Drinks 3-4 glasses of wine per night, no history of EtOH withdrawal. What is your current living situation?: I presently have a place to live Problems where you live: no known problems In the past 12 months, utilities in danger of being shut off: no In past 12 months, lack of transportation kept you from medical appts, meetings, work, or getting things needed for daily living: no In the past 12 mos, have been you worried that your food would run out before you had money to buy more?: never true In the past 12 mos, the food you bought just didn't last and you didn't have money to buy more?: never true Smoking Status: Former smoker Do you use any of these nicotine containing products: None Second hand tobacco smoke exposure: No How often do you have a drink containing alcohol: 4 or more times a week Alcohol type: wine How many standard drinks containing alcohol do you have on a typical day: 1 or 2 AUDIT-C Alcohol total score: 4 Non-prescribed substance use: denies use Caffeine: Yes How often does anyone, including family, friends and others, physically hurt you : never How often does anyone, including family, friends and others, insult or talk down to you: never How often does anyone, including family, friends and others, threaten you with harm: never How often does anyone, including family, friends and others, scream or curse at you: never service: No Exam Narrative Exam Narrative: On examination in room 3 he is in no apparent distress he is pleasant alert pupils equal round reactive to light there is no scleral icterus redness TMs are normal oropharynx normal there is no adenopathy anterior posterior chains, chest is good air entry bilaterally no wheezing crackles noted easy respirations heart sounds no clicks murmurs or gallops. Abdomen is soft, his bowel sounds in all quadrants, no tenderness to palpation no masses noted, no CVA tenderness, back is nontender. Moves all extremities independently and well. Const Vital Signs, click to edit/add: Vital Signs - 24 hr 06/17/24 14:33 06/17/24 14:59 Temperature 98.3 F Pulse Rate [Left Pulse Oximeter] 82 Respiratory Rate 16 Blood Pressure [Right Upper Arm] 159/68 H Pulse Oximetry 99 99 Oxygen Delivery Method Room Air Documenting provider has reviewed patient's vital signs: yes Course Reevaluation(s) Time of Reevaluation #1: 17:19 Reevaluation #1: Patient has remained pain-free with no episodes, he did want to bring up that he coughed up a bunch of phlegm before he came in. X-ray show no evidence of significant abnormalities, he probably has some enteritis likely secondary from his use some MiraLax. We will check his troponin again if this is normal, we will let him go home with follow-up with primary care and consideration of stress testing as an outpatient. Vital Signs Vital signs: Initial Vital Signs Respiratory Effort Normal 06/17/24 14:28 Respiratory Depth Normal 06/17/24 14:28 Respiratory Pattern Normal 06/17/24 14:28 Vital Signs Temperature 98.3 F 06/17/24 14:33 Pulse Rate 82 06/17/24 14:33 Respiratory Rate 16 06/17/24 14:33 Blood Pressure 159/68 H 06/17/24 14:33 Pulse Oximetry 99 06/17/24 14:33 Oxygen Delivery Method Room Air 06/17/24 14:33 Temperature 98.3 F 06/17/24 14:33 Pulse Rate 82 06/17/24 14:33 Respiratory Rate 16 06/17/24 14:33 Blood Pressure 159/68 H 06/17/24 14:33 Pulse Oximetry 99 06/17/24 14:59 Oxygen Delivery Method Room Air 06/17/24 14:33 Medications Administered Medications: Discontinued Medications Generic Name Dose Route Start Last Admin Trade Name Freq PRN Reason Stop Dose Admin Aspirin 324 mg 06/17/24 14:59 06/17/24 15:39 Aspirin 81 Mg Tab.Chew PO 06/17/24 15:00 324 mg ONCE ONE Administration Sodium Chloride 1,000 mls @ 1,000 mls/hr 06/17/24 15:00 06/17/24 15:39 0.9 % Sodium Chloride 1000 Ml IV 06/17/24 15:59 1,000 mls/hr .Q1H ALBERTO Administration MDM - Chest Pain MDM Narrative Medical decision making narrative: During the evaluation of this patient I considered multiple differential diagnosis is. The life-threatening differential diagnosis include coronary disease/[place], pulmonary embolism, pneumothorax, pneumonia, and aortic dissection. Other differential diagnosis included but were not limited to pericarditis, myocarditis, chest wall pain, GERD, esophageal rupture, rib fracture contusion, pleurisy, as well as other etiologies. Testing x2 troponin is negative, his pain was not consistent with coronary disease, and I have a lower suspicion making his heart score lower, D-dimer was normal. I do think a lot of this is related to use of the MiraLax, and likely some anxiety, however we do recommend follow-up with primary, consideration of stress testing, Differential Diagnosis Differential diagnosis: Likely fracture of rib, pneumothorax, stable angina, unstable angina pectoris, atypical chest pain, st elevation myocardial infarction, costochondritis, chest pain and biliary colic Medical Records Data Attestation: I reviewed the patient's medical records. Lab Data Attestation: I reviewed the patient's lab results. Labs: Lab Results 06/17/24 06/17/24 06/17/24 Range/Units 15:05 15:53 17:15 WBC 11.67 H (4.50-11.00) K/uL RBC 4.62 (4.30-5.90) m/uL Hgb 14.0 (13.5-17.5) gm/dL Hct 42.0 (37.0-53.0) % MCV 91 (80-100) fL MCH 30 (26-34) pg MCHC 33 (32-36) gm/dL RDW Coeff of [place] 12.9 (11.5-15.5) % Plt Count 229 (140-440) K/uL Neut % (Auto) 80.0 H (42.0-72.0) % Lymph % (Auto) 8.8 L (20-44) % [place] % (Auto) 8.9 (0.0-11.0) % Eos % (Auto) 0.9 (0.0-7.0) % Baso % (Auto) 0.2 (0.0-3.0) % Neut # (Auto) 9.30 H (1.7-7.0) K/uL Lymph # (Auto) 1.00 (0.90-2.90) K/uL [place] # (Auto) 1.00 H (0.00-0.90) K/UL Eos # (Auto) 0.10 (0.00-0.50) K/uL Baso # (Auto) 0.00 (0.00-0.30) K/uL Abs Immat Gran (auto) 0.10 (0.00-0.30) K/uL Imm/Tot Granulo (auto) 1.2 % D-Dimer Quant (PE/DVT) 0.26 (0.00-0.50) ug/ml Sodium 136 (135-149) mmol/L Potassium 4.1 (3.6-5.1) mmol/L Chloride 102 (96-114) mmol/L Carbon Dioxide 28 (20-32) mmol/L Anion Gap 6 L (7-15) mEq/L BUN 19 (7-30) mg/dL Creatinine 0.5 (0.5-1.5) mg/dL Estimated Creat Clear 63.80 Estimated GFR 104 ml/min Glucose 116 H (60-115) mg/dL Calcium 9.2 (8.4-10.6) mg/dL Magnesium 1.9 (1.5-2.6) mg/dL Total Bilirubin 0.9 (0.1-1.5) mg/dL Direct Bilirubin 0.3 (0.0-0.5) mg/dL AST 21 (12-35) U/L ALT 17 (4-50) U/L Alkaline Phosphatase 63 (40-150) U/L Troponin I < 0.01 (0.01-0.04) ng/mL C-Reactive Protein 0.8 (0.5-1.0) mg/dL NT-Pro-B Natriuret Pep 236 pg/mL Total Protein 6.4 (6.0-8.3) g/dL Albumin 3.8 (3.3-5.0) g/dL Amylase 39 (18-89) U/L Lipase 40 (23-300) U/L TSH 2.650 (0.270-4.20) uIU/mL Urine Color Yellow (Yellow) Urine Appearance Clear (Clear) Urine pH 7.0 (5.0-8.5) Ur Specific Barry 1.015 (1.000-1.030) Urine Protein Trace A (Negative) Urine Glucose (UA) Negative (Negative) Urine Ketones 1+ A (Negative) Urine Blood Negative (Negative) Urine Nitrite Negative (Negative) Urine Bilirubin Negative (Negative) Urine Urobilinogen 4.0 A (0.2-1.0) Ur Leukocyte Esterase Negative (Negative) Urine RBC 0-2 (0-2) Urine WBC 0-2 (0-5) Ur Squamous Epith Cells None (None-Few) Amorphous Sediment Moderate A (None) Urine Bacteria None (None) POC Troponin I 0.00 L (0.01-0.04) ng/ml Imaging Data Chest x-ray: Attestation: I have reviewed the pertinent imaging results. My impression: No acute findings Radiologist's impression: [place] [address] Diagnostic Imaging Report Patient: Rolando Salazar MR#: [id number] : 1945 Acct:[id number] Loc: ED Service Date: 06/17/[address]: Ordering Physician: Sridhar Cortes M.D. Date of Service: 06/17/24 Procedure(s): XR chest 2V Accession Number(s): [id number] cc: Jono Ross M.D.; Sridhar Cortes M.D.~ For Patients: As a result of the Cures Act, medical imaging exams and procedure reports are released immediately into your electronic medical record. You may view this report before your referring provider. If you have questions, please contact your health care provider. Indication: Lower chest pain. Excessive burping. Technique: Chest 2 views. Comparison: Chest radiograph 06/30/2020. Findings: The cardiomediastinal silhouette size is normal. There is no focal pulmonary opacity, pleural effusion or pneumothorax. The visualized osseous structures are unremarkable for age. Impression: No acute cardiopulmonary abnormality. Dictated by Dorothy Lazo MD @ 06/17/2024 3:34:12 [place] [address] Diagnostic Imaging Report Patient: Rolando Salazar MR#: [id number] : 1945 Acct:[id number] Loc: ED Service Date: 06/17/[address]: Ordering Physician: Sridhar Cortes M.D. Date of Service: 06/17/24 Procedure(s): XR abdomen min 2V Accession Number(s): [id number] cc: Jono Ross M.D.; Sridhar Cortes M.D.~ For Patients: As a result of the Cures Act, medical imaging exams and procedure reports are released immediately into your electronic medical record. You may view this report before your referring provider. If you have questions, please contact your health care provider. INDICATION: Lower chest pain. TECHNIQUE: Abdominal radiographs, 2 views. COMPARISON: Abdominal radiographs 03/12/2023. FINDINGS: Lower chest: Unremarkable. Bowel: There are nondistended loops of small bowel with air-fluid levels diffusely. No bowel obstruction. Moderate colonic stool burden, correlate for constipation. Soft tissues: Unremarkable. Bones: No acute osseous abnormalities. Mild degenerative changes of the lumbar spine. IMPRESSION: Nondistended loops of small bowel with air-fluid levels, suggestive of a nonspecific enteritis. No bowel obstruction. Dictated by Misael De La Garza MD @ 06/17/2024 3:35:19 PM (Electronically Signed) ECG Data Attestation: I personally reviewed and interpreted this ECG as follows: ECG interpretation date: 06/17/24 Prior ECG tracings: not available for review Interpretation: EKG shows normal sinus rhythm, with a ventricular rate 81, no acute ST wave changes. No old EKG to compare to Discharge Plan Discharge Clinical Impression: Chest pain, Diarrhea Patient Disposition: Home w/ Parent or Adult Condition: Stable Instructions: Chest Pain (DC), Acute Diarrhea (ED) Additional Instructions: all your testing for your heart is negative, testing for blood clot was also negative, I do recommend that you follow-up with your primary care physician, per our usual recommendation. The normal testing after a chest pain visit would be a stress echo. This might be a reasonable thing to do as an outpatient. For your history of constipation, it looks like there is a lot of fluid in the bowel , this will work its way through, I am not sure using any more MiraLax will help you in a probably will give you more diarrhea. See how it goes, but I do strongly recommend follow-up primary care, return here if increasing chest pain shortness of breath sweating or nausea Activity Level: Light activity Discharge Diet: Regular Prescriptions: No Action multivitamin [Multiple Vitamins] Tablet 1 tab PO QAM lidocaine HCl 2 % solution 1 applic mucous membrane BID PRN (Reason: pain) Qty: 600 3RF omeprazole 20 mg tablet,delayed release (DR/EC) 20 mg PO QDAY polyethylene glycol 3350 [Miralax] 17 gram powder in packet 17 g PO BID Qty: 100 0RF Rx Instructions: Take two times per day for 5 days, then decrease to once per day for another 2 weeks. Follow Up/Referrals: Jono Ross MD [Primary Care Provider] - Stand Alone Forms: [employer] Info Instructions
[2024-06-17 15:18] LABS: Basophils Percent Auto 0.2 % (0.0-3.0); Eosinophils Percent Auto 0.9 % (0.0-7.0); Immature Granulocytes Pct Auto 1.2 %; Lymphocytes Percent Auto 8.8 % (20-44); Mean Corpuscular HGB Conc 33 gm/dL (32-36); Mean Corpuscular Hemoglobin 30 pg (26-34); Mean Corpuscular Volume 91 fL (80-100); Monocytes Percent Auto 8.9 % (0.0-11.0); Platelet Count* 229 K/uL (140-440); RDW Coefficient of Variation % 12.9 % (11.5-15.5); Red Blood Count 4.62 m/uL (4.30-5.90); White Blood Count* 11.67 K/uL (4.50-11.00)
[2024-06-17 15:19] LABS: Slide Review Reflex No
[2024-06-17] MEDS: ASPIRIN 81 MG TAB.CHEW 324 MG PO (15:39)
[2024-06-17] MEDS: 0.9 % SODIUM CHLORIDE 1000 ml 1,000 ML IV (15:39)
--- OUTSIDE RECORDS SUMMARY | 2024-06-17 15:43 | XMS_ITS | Clinical Summary ---
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 Gender Identity Not on file Sexual Orientation Not on file Plan of Treatment Upcoming Encounters Date Type Department Care Team (Late st Contact Info) Description 08/03/2024 1:20 PM CDT Office Visit [facility] [address] [place] [address] Neri Puente MD [address] [place] [address] Health Maintenance Due Date Last Done Comments Tdap 11/30/1956 Depression screening for age 12+ 1956 BMI (ht and wt on same day) for age 18+ 1962 Hepatitis C screening for ag e 18-79 1962 Tetanus booster 1964 Pneumococcal series for age 50+ (1 of 1 - PCV) 1994 Zoster (shingles) series for age 50+ (1 of 2) 1994 Medicare Wellness for age 65+ 2009 RSV vaccine for adults or (1 - 1-dose 75+ series) 11/30/2019 COVID-19 vaccine series ( season) 2023 05/04/2023, 12/12/2020, 05/03/2020, Additional history exists Influenza Vaccine (Season Ended) 2024 Insurance [employer]UE [employer] [place] BLUE MR [place] ONLY Care Teams Press Reader Relationship Specialty Start Date End Date Jono Ross MD [address] [place] [address] PCP - General 06/23/11
--- OUTSIDE RECORDS SUMMARY | 2024-06-17 15:43 | XMS_ITS | Clinical Summary ---
Author Organization [facility] Address [address] [place] [address] Care Team Providers Care Slack Cooper Name Role Phone None Reported, Pcp Primary Care Provider Unavail able Source Comments Patient records contain information from all sites at [facility]. For routine questions regarding patient records, call [phone] during business hours, M-F 8:00 AM - 5:00 PM Central Time. Record requests for emergency care only can be directed to [phone] at any time.[facility] Allergies Active Allergy Reactions Criticality Noted Date [...] week 12/06/2020 How often do you attend bahai or yarsani serv ices? Never 12/06/2020 Do you belong to any clubs o r organizations such as bahai groups, unions, fraternal or athletic groups, or [...] and heating? 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
[2024-06-17 15:52] LABS: D Dimer Quantitative* 0.26 ug/ml (0.00-0.50)
[2024-06-17 16:00] LABS: Appearance Urine Clear (Clear); Bilirubin Urine Negative (Negative); Blood Urine Negative (Negative); Color Urine Yellow (Yellow); Glucose Urine Negative (Negative); Ketones Urine 1+ (Negative); Leukocyte Esterase Urine Negative (Negative); Nitrite Urine Negative (Negative); Protein Urine Trace (Negative); Specific Gravity Urine 1.015 (1.000-1.030)
[2024-06-17 16:11] LABS: Amorphous Sediment Urine Moderate; RBC Urine 0-2 (0-2); WBC Urine 0-2 (0-5)
[2024-06-17 16:38] LABS: Albumin* 3.8 g/dL (3.3-5.0); Chloride* 102 mmol/L (96-114)
[2024-06-17 16:39] LABS: Potassium* 4.1 mmol/L (3.6-5.1); Sodium* 136 mmol/L (135-149)
[2024-06-17 16:41] LABS: Alanine Aminotransferase* 17 U/L (4-50); Alkaline Phosphatase* 63 U/L (40-150); Amylase* 39 U/L (18-89); Anion Gap 6 mEq/L (7-15); Aspartate Amino Transferase* 21 U/L (12-35); Bilirubin Direct* 0.3 mg/dL (0.0-0.5); Bilirubin Total* 0.9 mg/dL (0.1-1.5); Blood Urea Nitrogen* 19 mg/dL (7-30); Carbon Dioxide* 28 mmol/L (20-32); Creatinine* 0.5 mg/dL (0.5-1.5); Estimated Glomerular Filt Rate 104 ml/min; Total Protein* 6.4 g/dL (6.0-8.3)
[2024-06-17 16:42] LABS: Calcium* 9.2 mg/dL (8.4-10.6); Glucose* 116 mg/dL (60-115); Lipase* 40 U/L (23-300); Magnesium* 1.9 mg/dL (1.5-2.6)
[2024-06-17 16:44] LABS: C Reactive Protein* 0.8 mg/dL (0.5-1.0)
[2024-06-17 16:52] LABS: NT Pro B Type NatriureticPept* 236 pg/mL
[2024-06-17 16:54] LABS: Troponin I* < 0.01 ng/mL (0.01-0.04)
== END 2024-06-17 17:51 | disposition home or self-care (01) ==
PROVIDERS: Emergency Provider Family Medicine; PCP Internal Medicine
DX: K64.8 Other hemorrhoids (principal)
CPT/HCPCS: 36415; 71046; 74019; 80048; 80076; 81001; 82150; 83690; 83735; 83880; 84443; 84484; 85025; 85379; 86140; 93005; 94761; 99284; A9270; J7030

== ENCOUNTER 2024-06-21 11:21 | Emergency (ER) | payer MEDICARE, BC, SELFPAY ==
--- NOTE | 2024-06-21 11:27 | ED.GENADULT ---
HPI - General Adult General Time Seen by Provider: 11:27 Date Seen: 06/21/24 Chief complaint: Unspecified Complaint, Adult Stated complaint: hemorrhoids in rectum Time Seen by Provider: 06/21/24 11:25 Source: patient History of Present Illness HPI narrative: Rolando is a 78-year-old male with hyperlipidemia, osteoarthritis, chronic constipation, hemorrhoids presents emerged department via private car and with family member with hemorrhoids. Patient states he has been having hemorrhoids for some time with his chronic constipation, he states he has not had a normal bowel movement over the last month, when he has a bowel movement it is mostly liquid or small hard stools. Patient denies any blood in the stool, patient denies any pain to the area. Patient did have a appointment with his primary care provider 1:00 p.m. this afternoon. Patient states he has not seen anyone for this problem in the past. Patient denies any pain at this time. Related Data Home Medications ?Medication ?Instructions ?Recorded ?Confirmed multivitamin (Multiple Vitamins 1 tab PO QAM 08/13/21 06/21/24 tablet) omeprazole 20 mg tablet,delayed 20 mg PO QDAY 06/16/24 06/21/24 release vitamins A,C,O-olrl-porovm 2,148 2 tab PO BID 06/21/24 06/21/24 mcg-113 mg-45 mg-17.4 mg tablet (PreserVision AREDS) Previous Rx's ?Medication ?Instructions ?Recorded lidocaine HCl 2 % mucosal solution 1 applic mucous membrane BID PRN 02/24/24 pain #600 mL polyethylene glycol 3350 17 gram 17 g PO BID #100 ea 06/16/24 oral powder packet (Miralax) bisacodyl 5 mg tablet,delayed 5 mg PO QHS 30 days #30 tabs 06/21/24 release (Dulcolax (bisacodyl)) Allergies Allergy/AdvReac Type Severity Reaction Status Date / Time Molds & Smuts Allergy Unknown Uncoded 06/21/24 13:41 Review of Systems Status of ROS: Reports: 10 or more systems reviewed and unremarkable except as noted in History and below [facility] Medical History Thrush ?B37.0 - Candidal stomatitis (ICD-10) H/O oral aphthous ulcers ?Z87.19 - Personal history of other diseases of the digestive system (ICD-10) Bilateral knee pain ?M25.561 - Pain in right knee (ICD-10) ?M25.562 - Pain in left knee (ICD-10) Hearing loss ?H91.90 - Unspecified hearing loss, unspecified ear (ICD-10) Change in bowel function ?R19.8 - Other specified symptoms and signs involving the digestive system and abdomen (ICD-10) Hyperlipidemia (12/10/08) ?E78.5 - Hyperlipidemia, unspecified (ICD-10) Weight decrease ?R63.4 - Abnormal weight loss (ICD-10) Diverticulitis ?K57.92 - Diverticulitis of intestine, part unspecified, without perforation or abscess without bleeding (ICD-10) Acute meniscal tear of knee ?S83.209A - Unspecified tear of unspecified meniscus, current injury, unspecified knee, initial encounter (ICD-10) Chronic cough ?R05.3 - Chronic cough (ICD-10) Kidney calculus (12/10/08) ?N20.0 - Calculus of kidney (ICD-10) Hypertension (12/10/08) ?I10 - Essential (primary) hypertension (ICD-10) Gastroesophageal reflux (12/10/08) ?K21.9 - Gastro-esophageal reflux disease without esophagitis (ICD-10) Dupuytren's contracture of left hand ?M72.0 - Palmar fascial fibromatosis [Dupuytren] (ICD-10) Neuropathy of left ulnar nerve at wrist ?G56.22 - Lesion of ulnar nerve, left upper limb (ICD-10) Obesity with body mass index greater than 30 ?E66.9 - Obesity, unspecified (ICD-10) Laceration of scalp ?S01.01XA - Laceration without foreign body of scalp, initial encounter (ICD-10) Kidney calculus (12/10/08) ?N20.0 - Calculus of kidney (ICD-10) Knee pain ?M25.569 - Pain in unspecified knee (ICD-10) Allergies ?T78.40XA - Allergy, unspecified, initial encounter (ICD-10) BPH (benign prostatic hyperplasia) ?N40.0 - Benign prostatic hyperplasia without lower urinary tract symptoms (ICD-10) Sacroiliac pain ?M53.3 - Sacrococcygeal disorders, not elsewhere classified (ICD-10) Surgical History History of ear surgery (~1970) ?Z98.890 - Other specified postprocedural states (ICD-10) H/O cataract extraction ?Z98.49 - Cataract extraction status, unspecified eye (ICD-10) Status post bilateral hernia repair ?Z98.890 - Other specified postprocedural states (ICD-10) ?Z87.19 - Personal history of other diseases of the digestive system (ICD-10) S/P trigger finger release (07/31/21) ?Z98.890 - Other specified postprocedural states (ICD-10) Family History Father Alcohol dependence Mother No problems noted. Social History Narrative: Patient is retired and lives with Marky - she would be medical decision maker if needed. Two adult children in [place]. Rolando requests full code status, but never wants to be alive on a machine for any extended period of time. Former smoker, quit in 1985 with an approximate 20 pack year history. Drinks 3-4 glasses of wine per night, no history of EtOH withdrawal. What is your current living situation?: I presently have a place to live Problems where you live: no known problems In the past 12 months, utilities in danger of being shut off: no In past 12 months, lack of transportation kept you from medical appts, meetings, work, or getting things needed for daily living: no In the past 12 mos, have been you worried that your food would run out before you had money to buy more?: never true In the past 12 mos, the food you bought just didn't last and you didn't have money to buy more?: never true Smoking Status: Former smoker Do you use any of these nicotine containing products: None Second hand tobacco smoke exposure: No How often do you have a drink containing alcohol: 4 or more times a week Alcohol type: wine How many standard drinks containing alcohol do you have on a typical day: 1 or 2 AUDIT-C Alcohol total score: 4 Non-prescribed substance use: denies use Caffeine: Yes How often does anyone, including family, friends and others, physically hurt you: never How often does anyone, including family, friends and others, insult or talk down to you: never How often does anyone, including family, friends and others, threaten you with harm: never How often does anyone, including family, friends and others, scream or curse at you: never service: No Exam Narrative: Exam Narrative: General: No obvious distress sitting comfortably HEENT: Pupils equal round reactive to light Lungs: Clear to auscultation bilaterally Heart: NSR Abdomen: Soft nontender Rectum: three non thrombosed, internal hemorrhoids present, nontender to palpation, surrounding erythema, no drainage. To large non thrombosed external hemorrhoids present at the 3:00 a.m. and 9 o'clock position. Normal rectal exam. Const: Vital Signs, click to edit/add: Vital Signs - 24 hr 06/21/24 11:35 Temperature 97.2 F L Pulse Rate [Pulse Oximeter] 106 H Respiratory Rate 20 Blood Pressure [Ri ght Upper Arm] 170/91 H Pulse Oximetry 96 Oxygen Delivery Me thod Room Air Course Course ED Course: 11:30 AM: aidet performed. Based on history and physical exam will likely reach out to General surgery Dr. Schroeder, patient did have a colonoscopy 2 years ago which did show internal external hemorrhoids, no mass, patient denies any pain at this time would not benefit from any hydrocortisone/lidocaine ointment, her other hemorrhoid medications, patient currently stopped his MiraLax. 12:15 PM: Was able to speak to Lucinda Schroeder general surgery on-call, her recommendations were to follow up them non emergently over the next week, to continue with MiraLax daily. Any worsening pain or bleeding to return to the emerged department, this was discussed with patient and and they were in agreement this plan. Vital Signs Vital signs: Initial Vital Signs Temperature 97.2 F L 06/21/24 11:35 Temperature Source Temporal Artery Scan 06/21/24 11:35 Pulse Rate 106 H 06/21/24 11:35 Respiratory Rate 20 06/21/24 11:35 Blood Pressure 170/91 H 06/21/24 11:35 Blood Pressure Mean 117 H 06/21/24 11:35 Pulse Oximetry 96 06/21/24 11:35 Oxygen Delivery Method Room Air 06/21/24 11:35 Vital Signs Temperature 97.2 F L 06/21/24 11:35 Pulse Rate 106 H 06/21/24 11:35 Respiratory Rate 20 06/21/24 11:35 Blood Pressure 170/91 H 06/21/24 11:35 Pulse Oximetry 96 06/21/24 11:35 Oxygen Delivery Method Room Air 06/21/24 11:35 Temperature 97.2 F L 06/21/24 11:35 Pulse Rate 106 H 06/21/24 11:35 Respiratory Rate 20 06/21/24 11:35 Blood Pressure 170/91 H 06/21/24 11:35 Pulse Oximetry 96 06/21/24 11:35 Oxygen Delivery Method Room Air 06/21/24 11:35 Medical Decision Making Lab Data Labs: Lab Results 06/21/24 Range/Units 11:40 Urine Color Yellow (Yellow) Urine Appearance Clear (Clear) Urine pH 7.0 (5.0-8.5) Ur Specific Horicon 1.015 (1.000-1.030) Urine Protein Negative (Negative) Urine Glucose (UA) Negative (Negative) Urine Ketones Negative (Negative) Urine Blood Negative (Negative) Urine Nitrite Negative (Negative) Urine Bilirubin Negative (Negative) Urine Urobilinogen 0.2 (0.2-1.0) Ur Leukocyte Esterase Negative (Negative) Urine RBC 0-2 (0-2) Urine WBC 0-2 (0-5) Ur Squamous Epith Cells None (None-Few) Urine Bacteria None (None) Discharge Plan Discharge Clinical Impression: Hemorrhoids, complicated Patient Disposition: Home, Self-Care Condition: Improved Instructions: Hemorrhoids (ED) Additional Instructions: To follow-up with general surgery as schedule over the next week, continue with MiraLax daily, return if any bleeding or increased pain. Activity Level: No Restrictions Discharge Diet: High Fiber Prescriptions: No Action multivitamin [Multiple Vitamins] Tablet 1 tab PO QAM lidocaine HCl 2 % solution 1 applic mucous membrane BID PRN (Reason: pain) Qty: 600 3RF omeprazole 20 mg tablet,delayed release (DR/EC) 20 mg PO QDAY polyethylene glycol 3350 [Miralax] 17 gram powder in packet 17 g PO BID Qty: 100 0RF Rx Instructions: Take two times per day for 5 days, then decrease to once per day for another 2 weeks. PreserVision AREDS 2,148 mcg-113 mg-45 mg-17.4mg tablet 2 tab PO BID Rx Instructions: administer with AM and PM meals bisacodyl [Dulcolax (bisacodyl)] 5 mg tablet,delayed release (DR/EC) 5 mg PO QHS 30 Days Qty: 30 0RF Follow Up/Referrals: Jono Ross MD [Primary Care Provider] - Stand Alone Forms: [employer] Info Instructions
[2024-06-21 11:35] VITALS: BP 170/91; PULSE 106; RESP 20; TEMP 36.2; O2SAT 96; BMI 24.0
[2024-06-21 12:06] LABS: Appearance Urine Clear (Clear); Bilirubin Urine Negative (Negative); Blood Urine Negative (Negative); Color Urine Yellow (Yellow); Glucose Urine Negative (Negative); Ketones Urine Negative (Negative); Leukocyte Esterase Urine Negative (Negative); Nitrite Urine Negative (Negative); Protein Urine Negative (Negative); Specific Gravity Urine 1.015 (1.000-1.030); Urobilinogen Urine 0.2 (0.2-1.0)
[2024-06-21 12:12] LABS: RBC Urine 0-2 (0-2); WBC Urine 0-2 (0-5)
--- OUTSIDE RECORDS SUMMARY | 2024-06-21 15:20 | XMS_ITS | Clinical Summary ---
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
--- OUTSIDE RECORDS SUMMARY | 2024-06-21 15:20 | XMS_ITS | Clinical Summary ---
Author Organization [facility] Address [address] [place] [address] Care Team Providers Care Ironing Pleater Name Role Phone None Reported, Pcp Primary Care Provider Unavail able Source Comments Patient records contain information from all sites at [facility]. For routine questions regarding patient records, call [phone] during business hours, M-F 8:00 AM - 5:00 PM Central Time. Record requests for emergency care only can be directed to [phone] at any time.[facility] Allergies Active Allergy Reactions Criticality Noted [...] week 12/06/2020 How often do you attend sikh or episcopal serv ices? Never 12/06/2020 Do you belong to any clubs o r organizations such as sikh groups, unions, fraternal or athletic groups, or [...] and heating? Not hard at all 12/06/2020 [facility] - Occupational Stress Questionnaire Answer Date [...] place to sleep or slept in a mcfp (including now)? 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
== END 2024-06-21 12:32 | disposition home or self-care (01) ==
PROVIDERS: Emergency Provider Student in an Organized Health Care Education/Training Program; PCP Internal Medicine
DX: K64.8 Other hemorrhoids (principal)
CPT/HCPCS: 81001; 99283; 99284

== ENCOUNTER 2024-08-18 19:03 | Outpatient (CLI) | payer MEDICARE, BC, SELFPAY | END 2024-08-18 19:04 | disposition home or self-care (01) | LOC: AMB 08-21 13:46 | PROVIDERS: PCP Internal Medicine; Visit Provider Emergency Medicine | DX: S01.91XA Laceration without foreign body of unspecified part of head, initial encounter (principal); W01.0XXA Fall on same level from slipping, tripping and stumbling without subsequent striking against object, initial encounter; Y93.01 Activity, walking, marching and hiking; Y92.414 Local residential or business street as the place of occurrence of the external cause | CPT/HCPCS: A0425; A0429 ==

== ENCOUNTER 2024-08-18 19:36 | Emergency (ER) | payer MEDICARE, BC, SELFPAY ==
--- OUTSIDE RECORDS SUMMARY | 2024-08-18 19:38 | XMS_ITS | Clinical Summary ---
Author Organization [facility] Address [address] [place] [address] Care Team Providers Care Basin Operator Name Role Phone None Reported, Pcp Primary Care Provider Unavail able Source Comments Patient records contain information from all sites at [facility]. For routine questions regarding patient records, call [phone] during business hours, M-F 8:00 AM - 5:00 PM Central Time. Record requests for emergency care only can be directed to [phone] at any time.[facility] Allergies Active Allergy Reactions Criticality Noted Date [...] drink = 0.6 oz pu re alcohol) Hunger Vital Sign Answer Date Recorded Within [...] in a mcc (including now)? No 12/06/2020 Education Answer Date Recorded What is the highest level of school you have completed or the highest degree you have received? 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 Gender Identity Male 12/06/2020 11:11 AM CDT [...] Fall Risk Screen (Annual) 02/16/2024 COVID-19 Vaccine ( season) 2024 10/19/2023, 08/11/2023, 05/04/2023, Additional history exists Influenza Vaccine (#1) 2024 , 12/09/2022, 10/29/2021, Additional history exists DTaP,Tdap,and Td Vaccines (3 - Td or Tdap) 04/07/2033 04/07/2023, 11/21/2013, 10/05/2003 Pneumococcal vaccine (50+ years) Completed 11/19/2014, 12/17/2009 Zoster Vaccines Completed 2019, 08/2018, 05/24/2018, Additional history exists RSV vaccine - (32-36 weeks) or 60+ years Completed 10/23/2022, 10/08/2022 IPV Vaccines Aged Out No longer eligi ble based on patient's age to complete this topic Insurance MEDICARE [facility] Care Teams Basin Operator Relationship Specialty Start Date End Date None Reported, Pcp PCP - General 12/24/23
--- OUTSIDE RECORDS SUMMARY | 2024-08-18 19:38 | XMS_ITS | Clinical Summary ---
Author Organization [facility] Address [address] [place] [address] Care Team Providers Care Emergency Medical Service Coordinator Name Role Phone Jono Ross MD Primary Care Provider Allergies Active Allergy Reactions Criticality Noted Date Comments Cigarette Smoke Other - Describe In Comment Field 11/10/2023 Smoke environmental-sneezin g and coughing Mold Anaphylaxis High 05/12/2022 Medications LIPITOR 10 MG TAB take 1 tablet (10 mg) by oral route once daily 30 0 10/20/2006 Active NEXIUM 40 MG CAP take 1 capsule (40 mg) by oral route once daily 30 0 10/20/2006 Active Hospital, Clinic, or Other Facility Administered Medication Ordered Dose Route Frequency Start Date End Date Status hylan G-F 20 48 mg injection (SYNVISC ONE)Indications:Primary osteoarthritis of left knee 48 mg IArtic ONE TIME 08/03/2024 08/03/2024 Ended hylan G-F 20 48 mg injection (SYNVISC ONE)Indications:Primary osteoarthritis of right knee 48 mg IArtic ONE TIME 08/03/2024 08/03/2024 Ended Active Problems Problem Noted Date Diagnosed Date Sensorineural hearing loss, bilateral 06/23/2011 Encounters Date Type Department Care Team Description 08/03/2024 1:20 PM CDT Office Visit [facility] [address] [place] [address] Neri Puente MD Musculoskeletal Problem (Consult bilateral knee pain per Dr. 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 Gender Identity Not on file Sexual Orientation Not on file Obstetrics History Last Filed Vital Signs Vital Sign Reading Time Taken Comments Blood Pressure 122/67 08/03/2024 1:18 PM CDT Pulse 93 08/03/2024 1:18 PM CDT Temperature 37.3 C (99.1 F) 08/03/2024 1:18 PM CDT Respiratory Rate - - Oxygen Saturation 96% 08/03/2024 1:18 PM CDT Inhaled Oxygen Concentration - - Weight - - Height - - Body Mass Index - - Plan of Treatment Upcoming Encounters Date Type Department Care Team (Late st Contact Info) Description 02/12/2025 1:00 PM AUTO DETAILER Office Visit [facility] [address] [place] [address] Neri Puente MD [address] [place] [address] Health Maintenance Due Date Last Done Comments Tetanus booster 11/30/1955 Depression screening for age 12+ 1956 BMI (ht and wt on same day) for age 18+ 1962 Hepatitis C screening for age 18-79 1962 Pneumococcal series for age 50+ (1 of 1 - PCV) 1994 Zoster (shingles) series for age 50+ (1 of 2) 1994 Medicare Wellness for age 65+ 2009 RSV vaccine for adults or (1 - 1-dose 75+ series) 11/30/2019 Influenza Vaccine (#1) 2024 COVID-19 vaccine series Completed 05/07/19, 10/19/2023, 08/11/2023, Additional history exists Hepatitis B series for 19+ Aged Out N o longer eligible based on patient's age to complete this topic Insurance [employer]UE [employer] [place] BLUE MR [place] ONLY Care Teams Emergency Medical Service Coordinator Relationship Specialty Start Date End Date Jono Ross MD [address] [place] [id number] PCP - General 06/23/11
[2024-08-18 19:50] VITALS: BP 139/82; PULSE 99; RESP 16; TEMP 36.7; O2SAT 97; BMI 22.1
--- NOTE | 2024-08-18 20:15 | ED_ITS ---
HPI - General Adult General Chief complaint: Fall/Minor Trauma Stated complaint: Laceration - head Time Seen by Provider: 08/18/24 20:15 History of Present Illness HPI narrative: This is a very pleasant 78-year-old gentleman who is generally healthy. He takes multivitamins and drops for his eyes but no other long-term medications save for omeprazole. He is not anticoagulated or on any anti-platelet agents. He has been dealing with some arthritis and recently had a Synvisc injection in his right knee. His been doing better. Prior to getting his knee injected he had to walk with a cane but since he has had the injection his knee pain is much better so he is now walking without it. He tries to stay active. He was doing his normal daily walk and normal daily route when he tripped and fell. He thinks he probably got his toe caught on night uneven piece of pavement. He fel l forward and struck his forehead against the ground and suffered a right eyebrow laceration. He had significant dark red nonpulsatile oozing from the laceration. He did not lose consciousness. He does not have a headache. Vision is normal. Hearing normal. He was placed into a C-collar prior to evaluation. However he does not have any neck pain. He has no numbness or tingling or weakness in his arms. He does have some pain in his left hand 4th digit. He actually has a pre-existing deformity of that digit due to previous trigger finger surgery. It is hurting more than normal. He also reports some low back pain which he attributes to sitting on our hard mattress. No hip or pelvic pain. No numbness or pain in his arms or legs. No chest pain or trouble breathing. Related Data Home Medications ?Medication ?Instructions ?Recorded ?Confirmed multivitamin (Multiple Vitamins 1 tab PO QAM 08/13/21 06/21/24 tablet) omeprazole 20 mg tablet,delayed 20 mg PO QDAY 06/16/24 06/21/24 release vitamins A,C,O-blsc-ozkhfd 2,148 2 tab PO BID 06/21/24 06/21/24 mcg-113 mg-45 mg-17.4 mg tablet (PreserVision AREDS) Previous Rx's ?Medication ?Instructions ?Recorded lidocaine HCl 2 % mucosal solution 1 applic mucous mem brane BID PRN 02/24/24 pain #600 mL polyethylene glycol 3350 17 gram 17 g PO BID #100 ea 0 06/16/24 oral powder packet (Miralax) Allergies Allergy/AdvReac Type Severity Reaction Status Date / Time No Known Drug Allergies Allergy Verified 08/18/24 19:50 PFSH [facility] Medical History Thrush ?B37.0 - Candidal stomatitis (ICD-10) H/O oral aphthous ulcers ?Z87.19 - Personal history of other diseases of the digestive system (ICD-10) Bilateral knee pain ?M25.561 - Pain in right knee (ICD-10) ?M25.562 - Pain in left knee (ICD-10) Hearing loss ?H91.90 - Unspecified hearing loss, unspecified ear (ICD-10) Change in bowel function ?R19.8 - Other specified symptoms and signs involving the digestive system and abdomen (ICD-10) Hyperlipidemia (12/10/08) ?E78.5 - Hyperlipidemia, unspecified (ICD-10) Weight decrease ?R63.4 - Abnormal weight loss (ICD-10) Diverticulitis ?K57.92 - Diverticulitis of intestine, part unspecified, without perforation or abscess without bleeding (ICD-10) Acute meniscal tear of knee ?S83.209A - Unspecified tear of unspecified meniscus, current injury, unspecified knee, initial encounter (ICD-10) Chronic cough ?R05.3 - Chronic cough (ICD-10) Kidney calculus (12/10/08) ?N20.0 - Calculus of kidney (ICD-10) Hypertension (12/10/08) ?I10 - Essential (primary) hypertension (ICD-10) Gastroesophageal reflux (12/10/08) ?K21.9 - Gastro-esophageal reflux disease without esophagitis (ICD-10) Dupuytren's contracture of left hand ?M72.0 - Palmar fascial fibromatosis [Dupuytren] (ICD-10) Neuropathy of left ulnar nerve at wrist ?G56.22 - Lesion of ulnar nerve, left upper limb (ICD-10) Obesity with body mass index greater than 30 ?E66.9 - Obesity, unspecified (ICD-10) Laceration of scalp ?S01.01XA - Laceration without foreign body of scalp, initial encounter (ICD- 10) Kidney calculus (12/10/08) ?N20.0 - Calculus of kidney (ICD-10) Knee pain ?M25.569 - Pain in unspecified knee (ICD-10) Allergies ?T78.40XA - Allergy, unspecified, initial encounter (ICD-10) BPH (benign prostatic hyperplasia) ?N40.0 - Benign prostatic hyperplasia without lower urinary tract symptoms (ICD-10) Sacroiliac pain ?M53.3 - Sacrococcygeal disorders, not elsewhere classified (ICD-10) Surgical History History of ear surgery (~1970) ?Z98.890 - Other specified postprocedural states (ICD-10) H/O cataract extraction ?Z98.49 - Cataract extraction status, unspecified eye (ICD-10) Status post bilateral hernia repair ?Z98.890 - Other specified postprocedural states (ICD-10) ?Z87.19 - Personal history of other diseases of the digestive system (ICD-10) S/P trigger finger release (07/31/21) ?Z98.890 - Other specified postprocedural states (ICD-10) Family History Father Alcohol dependence Mother No problems noted. Social History Narrative: Patient is retired and lives with Marky - she would be medical decision maker if needed. Two adult children in [place]. Rolando requests full code status, but never wants to be alive on a machine for any extended period of time. Former smoker, quit in 1985 with an approximate 20 pack year history. Drinks 3-4 glasses of wine per night, no history of EtOH withdrawal. What is your current living situation?: I presently have a place to live Problems where you live: no known problems In the past 12 months, utilities in danger of being shut off: no In past 12 months, lack of transportation kept you from medical appts, meetings, work, or getting things needed for daily living: no In the past 12 mos, have been you worried that your food would run out before you had money to buy more?: never true In the past 12 mos, the food you bought just didn't last and you didn't have money to buy more?: never true Smoking Status: Former smoker Do you use any of these nicotine containing products: None Second hand tobacco smoke exposure: No How often do you have a drink containing alcohol: 4 or more times a week Alcohol type: wine How many standard drinks containing alcohol do you have on a typical day: 1 or 2 AUDIT-C Alcohol total score: 4 Non-prescribed substance use: denies use Caffeine: Yes How often does anyone, including family, friends and others, physically hurt you : never How often does anyone, including family, friends and others, insult or talk down to you: never How often does anyone, including family, friends and others, threaten you with harm: never How often does anyone, including family, friends and others, scream or curse at you: never service: No Exam Narrative: Exam Narrative: Constitutional: Appears well-developed and well-nourished. Alert. Conversant. Non toxic. HENT: Head: No depressed skull fracture, Raccoon Eyes, Owens's sign, or hemotympanum. He has a 3 cm laceration running horizontally on the right supraorbital rim under the top of the eyebrow. On the me than the laceration there is a stellate Y-shaped portion. No foreign body. No active bleeding. Otherwise, Face normal. TMs normal Nose: Nose normal. Mouth/Throat: Oral mucosa is clear and moist. no trismus. Pharynx normal. Tonsils symmetric. No tonsillar enlargement, erythema, or exudate. Eyes: Conjunctivae normal. EOM normal. Pupils equal, round, and reactive to light. No scleral icterus. Neck: Normal range of motion. Neck supple. No tracheal deviation present. Cardiovascular: Normal rate, regular rhythm. No gallop. No friction rub. No murmur heard. Symmetric radial artery pulses Pulmonary/Chest: Effort normal. No stridor. No respiratory distress. No wheezes. No rales. No rhonchi . No tenderness. Abdominal: Soft. Bowel sounds normal. No distension. No mass. No tenderness. No rebound. No guarding. Musculoskeletal: In a cervical collar placed prior to my evaluation. I am able to clear the patient by nexus criteria. No posterior midline tenderness or step-off. No T spine tenderness. She does complain of low back pain. There is no midline step-off or bruising. Pelvis is stable. Hips are nontender. RUE: Normal range of motion. No tenderness. No deformity LUE: Normal range of motion. No tenderness. No deformity RLE: Normal range of motion. No edema. No tenderness. No deformity LLE: Normal range of motion. No edema. No tenderness. No deformity Neurological: Alert and oriented to person, place, and time. Normal strength. CN II-VII intact. No sensory deficit. GCS eye subscore is 4. GCS verbal subscore is 5. GCS motor subscore is 6. Normal coordination Skin: Skin is warm and dry. No rash noted. No pallor. Normal capillary refill. Psychiatric: Normal mood. Normal affect. Const: Vital Signs, click to edit/add: Vital Signs - 24 hr 08/18/24 19:50 Temperature 98.0 F Pulse Rate [Pulse Oximeter] 99 Respiratory Rate 16 Blood Pressure [Ri t Upper Arm] 139/82 Pulse Oximetry 97 Oxygen Delivery Me thod Room Air Course Vital Signs Vital signs: Initial Vital Signs Temperature 98.0 F 08/18/24 19:50 Temperature Source Temporal Artery Scan 08/18/24 19:50 Pulse Rate 99 08/18/24 19:50 Respiratory Rate 16 08/18/24 19:50 Blood Pressure 139/82 08/18/24 19:50 Blood Pressure Mean 101 08/18/24 19:50 Blood Pressure Position Semi-Fowlers 08/18/24 19:50 Pulse Oximetry 97 08/18/24 19:50 Oxygen Delivery Method Room Air 08/18/24 19:50 Vital Signs Temperature 98.0 F 08/18/24 19:50 Pulse Rate 99 08/18/24 19:50 Respiratory Rate 16 08/18/24 19:50 Blood Pressure 139/82 08/18/24 19:50 Pulse Oximetry 97 08/18/24 19:50 Oxygen Delivery Method Room Air 08/18/24 19:50 Temperature 98.0 F 08/18/24 19:50 Pulse Rate 99 08/18/24 19:50 Respiratory Rate 16 08/18/24 19:50 Blood Pressure 139/82 08/18/24 19:50 Pulse Oximetry 97 08/18/24 19:50 Oxygen Delivery Method Room Air 08/18/24 19:50 Medications Administered Medications: Discontinued Medications Generic Name Dose Route Start Last Admin Trade Name Kevon PRN Reason Stop Dose Admin Acetaminophen 1,000 mg 08/18/24 20:58 08/18/24 21:04 Acetaminophen 500 Mg Tablet PO 08/18/24 20:59 1,000 mg ONCE ONE Administration Medical Decision Making MDM Narrative Medical decision making narrative: 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 His most significant injury is a right eyebrow laceration. Wound was repaired as noted in the procedure note. There is no evidence at this time to suggest any associated fracture or foreign body. There is no evidence to suggest intracranial injury and patient is neurologically in tact. Head CT is normal. The patient is to follow up for suture removal as instructed in 5-7 days. Indications to seek urgent reevaluation and signs of infection (including but not limited to increasing pain, redness, swelling, fevers, and drainage) were reviewed. Tetanus is up-to-date. This is a clean and noncontaminated wound in which prophylactic antibiotics are not indicated. He also injured his left hand ring finger. He has pre existing finger deformity with hyperextension due to previous tendon surgery for trigger finger. X-rays of are obtained and are fortunately negative for any sign of acute fracture or dislocation. He also complained of some low back pain which he attributed to sitting on his mattress. We did do x-rays of his lumbar spine. They are equivocal for a potential L2 compression fracture/superior in plate injury. However the patient's pain completely resolved Tylenol he is ambulating well. He says his back pain feels better now that he is off the mattress. At this point I do not think he needs reimaging with CT. Nor do I think he needs to be admitted for pain control or neuro surgical evaluation. An understanding of the discharge instructions and need for follow up were verbally confirmed. Imaging Data CT scan - head: Attestation: I have reviewed the pertinent imaging results. Radiologist's impression: MPRESSION: 1. No evidence of acute infarction, intracranial hemorrhage, or mass-effect seen. XR finger: Attestation: I have reviewed the pertinent imaging results. Radiologist's impression: Impression: No acute fracture or dislocation. If clinical symptoms persist, consider repeat radiograph in 7-10 days. XR L-spine: Attestation: I have reviewed the pertinent imaging results. Radiologist's impression: Findings/Impression: Questionable age-indeterminate mild superior endplate height loss at L2 which is not definitively seen on prior exams. Recommend further characterization with CT/MR. Chronic L3 superior endplate height loss. Minimal retrolisthesis at L5-S1. Multilevel spondylosis without advanced disc space height loss. ECG Data Attestation: I personally reviewed and interpreted this ECG as follows: Interpretation: Normal sinus rhythm Rate 99 IN interval 204 Normal QRS axis. No pathologic Q-waves. No ST segment elevation or depression. QTC: 436 Discharge Plan Discharge Clinical Impression: Fall, Laceration of eyebrow, right, Finger injury Patient Disposition: Home, Self-Care Condition: Stable Instructions: Fall Prevention (ED), Facial Laceration (ED) Additional Instructions: As we discussed, please return to the ER right away if you have any concerns especially headache, confusion, dizziness, falls, or if you have signs of infection around your wounds such as redness, swelling, or pus. Please follow-up with your regular doctor (or come back to the ER if needed) in 5-6 days for suture removal. To care for the wound, keep the dressing on and keep it clean and covered today and tomorrow. Beginning Wednesday you can take the dressing off. Wash the wound gently with gauze and warm water. Try to get the wound clean and get this is dry blood and crust off. After it is cleaned gently dabbed dry with dry gauze. Then reapply antibiotic ointment and reapply dressing. Keep the wound covered with antibiotic appointment and a dressing every day until you have the sutures removed. Prescriptions: No Action multivitamin [Multiple Vitamins] Tablet 1 tab PO QAM lidocaine HCl 2 % solution 1 applic mucous membrane BID PRN (Reason: pain) Qty: 600 3RF omeprazole 20 mg tablet,delayed release (DR/EC) 20 mg PO QDAY polyethylene glycol 3350 [Miralax] 17 gram powder in packet 17 g PO BID Qty: 100 0RF Rx Instructions: Take two times per day for 5 days, then decrease to once per day for another 2 weeks. PreserVision AREDS 2,148 mcg-113 mg-45 mg-17.4mg tablet 2 tab PO BID Rx Instructions: administer with AM and PM meals Follow Up/Referrals: Jono Ross MD [Primary Care Provider, Internal Medicine] [facility] Inst[facility] Procedures Laceration Right eyebrow laceration: Verification/time out: correct patient Site: face Side (If applicable): right Size (cm): 4 Description: stellate and irregular Depth: simple, single layer Local Anesthetic: lidocaine 1% and with epi Amount of anesthesia used (mL): 6 Pre-repair: wound explored and deep structures intact Skin layer closed with: nylon Size (cm): 5-0 Number of sutures: 8 Technique: simple, interrupted
--- NOTE | 2024-08-18 20:58 | CRLHL7_ITS ---
For Patients: As a result of the Century Cures Act, medical imaging exams and procedure reports are released immediately into your electronic medical record. You may view this report before your referring provider. If you have questions, please contact your health care provider. Indication: Trauma. Technique: Three views of the lumbar spine. Comparison: Abdominal radiographs 06/17/2024, CT abdomen pelvis 06/22/2022. Findings/Impression: Questionable age-indeterminate mild superior endplate height loss at L2 which is not definitively seen on prior exams. Recommend further characterization with CT/MR. Chronic L3 superior endplate height loss. Minimal retrolisthesis at L5-S1. Multilevel spondylosis without advanced disc space height loss. Dictated by Bertin Perez MD @ 08/18/2024 9:41:43 PM (Electronically Signed)
--- NOTE | 2024-08-18 20:58 | CRLHL7_ITS ---
For Patients: As a result of the Century Cures Act, medical imaging exams and procedure reports are released immediately into your electronic medical record. You may view this report before your referring provider. If you have questions, please contact your health care provider. Indication: Fall, finger pain. 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 Technique: Left 4th finger, three views Comparison: None. Findings: Bones: No acute fracture or dislocation. Hyperextension at the PIP joint secondary to prior surgical intervention per history. Uvrh-li-gzkndhfc diffuse IP joint space narrowing and juxta-articular osteophytosis. No suspicious osseous lesion. Soft tissues: No soft tissue swelling or radiopaque foreign body. Impression: No acute fracture or dislocation. If clinical symptoms persist, consider repeat radiograph in 7-10 days. Dictated by Pratibha George MD @ 08/18/2024 9:44:05 PM (Electronically Signed)
--- NOTE | 2024-08-18 20:58 | CRLHL7_ITS ---
For Patients: As a result of the Century Cures Act, medical imaging exams and procedure reports are released immediately into your electronic medical record. You may view this report before your referring provider. If you have questions, please contact your health care provider. INDICATION: Fall, head trauma, injury-FALL TECHNIQUE: CT Head without i.v. contrast. Coronal and sagittal reformats were obtained. COMPARISON: None FINDINGS: CSF space: Unremarkable for age. Brain: No evidence of mass, acute infarction or hemorrhage is seen. No mass-effect or midline shift is seen. Mild diffuse cortical atrophy is noted. The brain parenchyma is otherwise normal in appearance with preservation of the valenzuela-white matter junction. Calvarium: The visualized paranasal sinuses are well aerated. The mastoid air cells are clear. The visualized orbits are grossly unremarkable. The patient is status post prior bilateral cataract removal. The calvarium is unremarkable in appearance with no fractures identified. IMPRESSION: 1. No evidence of acute infarction, intracranial hemorrhage, or mass-effect seen. Please note that all CT scans at this facility use dose modulation, iterative reconstruction, and/or weight-based dosing when appropriate to reduce radiation dose to as low as reasonably achievable. Dictated by: Landry Traylor MD @ 08/18/2024 21:39:51 (Electronically Signed)
[2024-08-18] MEDS: ACETAMINOPHEN 500 MG TABLET 1000 MG PO (21:04)
== END 2024-08-18 23:48 | disposition home or self-care (01) ==
PROVIDERS: Emergency Provider Emergency Medicine; PCP Internal Medicine
DX: S01.112A Laceration without foreign body of left eyelid and periocular area, initial encounter (principal); S69.91XA Unspecified injury of right wrist, hand and finger(s), initial encounter; M54.50 Low back pain, unspecified; W01.198A Fall on same level from slipping, tripping and stumbling with subsequent striking against other object, initial encounter; Y93.01 Activity, walking, marching and hiking; Y92.414 Local residential or business street as the place of occurrence of the external cause
CPT/HCPCS: 12013; 70450; 72100; 73140; 99284; 99285; A9270

== ENCOUNTER 2024-08-21 09:42 | Emergency (ER) | payer MEDICARE, BC, SELFPAY ==
--- OUTSIDE RECORDS SUMMARY | 2024-08-21 09:44 | XMS_ITS | Clinical Summary ---
Author Organization [facility] Address [address] [place] [address] Care Team Providers Care Commercial Review Appraiser Name Role Phone None Reported, Pcp Primary Care Provider Unavail able Source Comments Patient records contain information from all sites at [facility]. For routine questions regarding patient records, call [phone] during business hours, M-F 8:00 AM - 5:00 PM Central Time. Record requests for emergency care only can be directed to [phone] at any time.[facility] Allergies Active Allergy Reactions Criticality Noted Date [...] in a fci (including now)? No 12/06/2020 Education Answer Date Recorded What is the highest level of school you have completed or the highest degree you have received? 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
--- OUTSIDE RECORDS SUMMARY | 2024-08-21 09:44 | XMS_ITS | Clinical Summary ---
Author Organization [facility] Address [address] [place] [id number] Care Team Providers Care Assistant Store Manager Name Role Phone Jono Ross MD Primary [...] Description 08/03/2024 1:20 PM CDT Office Visit [facility] [address] [place] [address] Neri Puente MD Musculoskeletal Problem (Consult bilateral knee pain per Dr. 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
[2024-08-21 10:02] VITALS: BP 154/81; PULSE 94; RESP 18; TEMP 36.8; O2SAT 98; BMI 23.7
== END 2024-08-21 10:34 | disposition home or self-care (01) ==
LOC: ED 10:33
PROVIDERS: Emergency Provider Family Medicine; PCP Internal Medicine
DX: Z53.21 Procedure and treatment not carried out due to patient leaving prior to being seen by health care provider (principal)
CPT/HCPCS: 99281

== ENCOUNTER 2024-11-07 10:15 | Outpatient (CLI) | payer MEDICARE, BC, SELFPAY | END 2024-11-07 10:16 | disposition home or self-care (01) | LOC: NFLDREF 10:16 | PROVIDERS: PCP Internal Medicine; Visit Provider Internal Medicine | DX: K64.9 Unspecified hemorrhoids (principal) | CPT/HCPCS: 80053 ==

== ENCOUNTER 2024-12-14 12:13 | Outpatient (CLI) | payer MEDICARE, BC, SELFPAY ==
--- NOTE | 2024-12-14 13:00 | CRLHL7_ITS ---
For Patients: As a result of the Century Cures Act, medical imaging exams and procedure reports are released immediately into your electronic medical record. You may view this report before your referring provider. If you have questions, please contact your health care provider. INDICATION: Eructation. TECHNIQUE: Ultrasound abdomen limited. Sonographic images of the right upper quadrant were obtained using valenzuela-scale and color Doppler images. COMPARISON: CT abdomen/pelvis dated 06/22/2022. FINDINGS: FINDINGS:Liver: Echogenicity of the liver parenchyma is within normal limits. 1.5 cm cyst in the left lobe of the liver, with thin septations. The liver measures 12.1 cm. Bile ducts: Intrahepatic bile ducts are not dilated. The common bile duct measures 0.5 cm. Gallbladder: Small gallstones with gallbladder sludge. No gallbladder wall thickening. No pericholecystic fluid. Negative sonographic Silva`s sign. Pancreas: Pancreas is poorly visualized secondary to acoustic shadowing from overlying/adjacent bowel gas. Right kidney: The right kidney measures 10.9 cm in length. No renal calculi or significant hydronephrosis is identified. IMPRESSION: 1. Cholelithiasis. No sonographic evidence of acute cholecystitis. 2. Minimally complex 1.5 cm cyst in the left lobe of the liver. Dictated by Prabha Barajas MD @ 12/14/2024 9:10:34 PM (Electronically Signed)
== END 2024-12-14 12:14 | disposition home or self-care (01) ==
PROVIDERS: PCP Internal Medicine; Visit Provider Internal Medicine
DX: R14.2 Eructation (principal); K80.20 Calculus of gallbladder without cholecystitis without obstruction; K76.89 Other specified diseases of liver
CPT/HCPCS: 76705

== ENCOUNTER 2024-12-18 13:06 | Emergency (ER) | payer MEDICARE, BC, SELFPAY ==
[2024-12-18] VITALS (11 sets, daily range): BP systolic 116–161; BP diastolic 72–102; PULSE 70–82; RESP 17–31; TEMP 36.6; O2SAT 96–100; BMI 24.0
--- OUTSIDE RECORDS SUMMARY | 2024-12-18 13:09 | XMS_ITS | Clinical Summary ---
Author Organization [facility] Address [address] [place] [id number] Care Team Providers Care Assistant Plant Control Operator Name Role Phone Jono Ross MD [...] Date Smoking Tobacco: Former Cigarettes S tarted: 1985 Smokeless Tobacco: Never Tobacco Cessation:Counseling Given: Not Answered Sex and Gender Information Value Date Recorded Sex Assigned at Not on file Legal Sex Male 5:19 AM BURRER HAND Gender Identity Not on file Sexual Orientation [...] st Contact Info) Description 02/12/2025 1:00 PM BURRER HAND Office Visit [facility] [address] [place] [address] Neri Puente MD [address] [place] [address] Health Maintenance Due Date Last Done Comments Tetanus booster 11/30/1955 Depression screening for age 12+ 1956 BMI (ht and wt on same day) for age 18+ 1962 Pneumococcal series for age 50+ (1 of 1 - PCV) 1994 Zoster (shingles) series for age 50+ (1 of 2) 1994 Medicare Wellness for age 65+ 2009 RSV vaccine for adults or (1 - 1-dose 75+ series) 11/30/2019 Influenza Vaccine (#1) 2024 Hepatitis B series for 19+ Aged Out N o longer eligible based on patient's age to complete this topic Insurance BLUE CROSS [place] BLUE MR [place] ONLY Care Teams Assistant Plant Control Operator Relationship Specialty Start Date End Date Jono Ross MD [address] [place] [address] PCP - General 06/23/11
--- OUTSIDE RECORDS SUMMARY | 2024-12-18 13:09 | XMS_ITS | Clinical Summary ---
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 For routine questions regarding patient records, call [phone] during business hours, M-F 8:00 AM - 5:00 PM Central Time. Record requests for emergency care only can be directed to [phone] at any time.[facility] Allergies Active Allergy Reactions Criticality [...] in a long-term (including now)? No 12/06/2020 Education Answer Date Recorded What is the highest level of school you have completed or the highest degree you have received? 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
--- NOTE | 2024-12-18 13:30 | ED_ITS ---
HPI - Abdominal Pain General Time Seen by Provider: 13:31 Date Seen: 12/18/24 Chief Complaint: Abdominal Pain Stated Complaint: pain from gallstones Time Seen by Provider: 12/18/24 13:29 Source: patient, RN notes reviewed and old records reviewed Mode of arrival: ambulatory Limitations: no limitations History of Present Illness HPI narrative: This 79-year-old male is presenting to the ED with severe abdominal pain. He states he was diagnosed with gallstones by his primary Dr. Ross on Wednesday. He is complaining of feeling dizzy due to the pain and short of breath because of the pain. He states he took Tylenol Arthritis earlier today. He only had a fruit cup for breakfast. He was seen in clinic on 12/07 in complained of increased belching. Ultrasound of his gallbladder was ordered. His gallbladder ultrasound was done on December 14 and showed cholelithiasis without sonographic evidence of cholecystitis. He had a minimally complex 1.5 cm cyst in the left lobe of the liver. He was called with results on December 15. He only ate couple fruit cups of Mandarin oranges this morning, this is typical breakfast. Pain started a while after that, he does not feel it was in relation to eating that. He feels like he might have to have a bowel movement, has had no diarrhea yet. He states the pain radiates all over the abdomen. He was unsure about his bowels, or an undergarment case he might have diarrhea. When the pain started, they decided to come to the ER. He believes this is his gallbladder. He notes there was some discomfort in his stomach with the belching prior to the ultrasound, he had never had pain like this though. He has had prior bilateral hernia repairs. elicited complaint: abdominal pain Related Data Home Medications ?Medication ?Instructions ?Recorded ?Confirmed multivitamin (Multiple Vitamins 1 tab PO QAM 08/13/21 12/07/24 tablet) omeprazole 20 mg tablet,delayed 20 mg PO QDAY 06/16/24 12/07/24 release vitamins A,C,W-coen-ojtgtz 2,148 2 tab PO BID 06/21/24 12/07/24 mcg-113 mg-45 mg-17.4 mg tablet (PreserVision AREDS) bisacodyl 5 mg tablet,delayed 5 mg PO ONCE PRN 5 12/07/24 release (Dulcolax (bisacodyl)) Previous Rx's ?Medication ?Instructions ?Recorded lidocaine HCl 2 % mucosal solution 1 applic mucous mem brane BID PRN 02/24/24 pain #600 mL hydrocortisone acetate 25 mg 25 mg WA QDAY #12 ea 10/17 05/09 rectal suppository (Anusol-HC) simethicone 80 mg chewable tablet 80 mg PO TID-QID PRN abdominal 12/07/24 distention #60 tabs hydrocortisone 2.5 % topical cream 1 applic WA BID-QID PRN 12/11/24 with perineal applicator hemorrhoids #30 grams (Anusol-HC) Allergies Allergy/AdvReac Type Severity Reaction Status Date / Time No Known Drug Allergies Allergy Verified 12/07/24 14:46 Review of Systems Status of ROS Reports: 6 or more systems reviewed and unremarkable except as noted in History and below [facility] Medical History Hemorrhoids ?K64.9 - Unspecified hemorrhoids (ICD-10) Belching ?R14.2 - Eructation (ICD-10) Thrush ?B37.0 - Candidal stomatitis (ICD-10) H/O oral aphthous ulcers ?Z87.19 - Personal history of other diseases of the digestive system (ICD-10) Bilateral knee pain ?M25.561 - Pain in right knee (ICD-10) ?M25.562 - Pain in left knee (ICD-10) Hearing loss ?H91.90 - Unspecified hearing loss, unspecified ear (ICD-10) Change in bowel function ?R19.8 - Other specified symptoms and signs involving the digestive system and abdomen (ICD-10) Hyperlipidemia (12/10/08) ?E78.5 - Hyperlipidemia, unspecified (ICD-10) Weight decrease ?R63.4 - Abnormal weight loss (ICD-10) Diverticulitis ?K57.92 - Diverticulitis of intestine, part unspecified, without perforation or abscess without bleeding (ICD-10) Acute meniscal tear of knee ?S83.209A - Unspecified tear of unspecified meniscus, current injury, unspecified knee, initial encounter (ICD-10) Chronic cough ?R05.3 - Chronic cough (ICD-10) Kidney calculus (12/10/08) ?N20.0 - Calculus of kidney (ICD-10) Hypertension (12/10/08) ?I10 - Essential (primary) hypertension (ICD-10) Gastroesophageal reflux (12/10/08) ?K21.9 - Gastro-esophageal reflux disease without esophagitis (ICD-10) Dupuytren's contracture of left hand ?M72.0 - Palmar fascial fibromatosis [Dupuytren] (ICD-10) Neuropathy of left ulnar nerve at wrist ?G56.22 - Lesion of ulnar nerve, left upper limb (ICD-10) Obesity with body mass index greater than 30 ?E66.9 - Obesity, unspecified (ICD-10) Laceration of scalp ?S01.01XA - Laceration without foreign body of scalp, initial encounter (ICD- 10) Kidney calculus (12/10/08) ?N20.0 - Calculus of kidney (ICD-10) Knee pain ?M25.569 - Pain in unspecified knee (ICD-10) Allergies ?T78.40XA - Allergy, unspecified, initial encounter (ICD-10) BPH (benign prostatic hyperplasia) ?N40.0 - Benign prostatic hyperplasia without lower urinary tract symptoms (ICD-10) Sacroiliac pain ?M53.3 - Sacrococcygeal disorders, not elsewhere classified (ICD-10) Surgical History History of ear surgery (~1970) ?Z98.890 - Other specified postprocedural states (ICD-10) H/O cataract extraction ?Z98.49 - Cataract extraction status, unspecified eye (ICD-10) Status post bilateral hernia repair ?Z98.890 - Other specified postprocedural states (ICD-10) ?Z87.19 - Personal history of other diseases of the digestive system (ICD-10) S/P trigger finger release (07/31/21) ?Z98.890 - Other specified postprocedural states (ICD-10) Family History Father Alcohol dependence Mother No problems noted. Social History Narrative: Patient is retired and lives with aMrky - she would be medical decision maker if needed. Two adult children in [place]. Shobha requests full code status, but never wants to be alive on a machine for any extended period of time. Former smoker, quit in 1985 with an approximate 20 pack year history. Drinks 3-4 glasses of wine per night, no history of EtOH withdrawal. What is your current living situation?: I presently have a place to live Problems where you live: no known problems In the past 12 months, utilities in danger of being shut off: no In past 12 months, lack of transportation kept you from medical appts, meetings, work, or getting things needed for daily living: no In the past 12 mos, have been you worried that your food would run out before you had money to buy more?: never true In the past 12 mos, the food you bought just didn't last and you didn't have money to buy more?: never true Smoking Status: Former smoker Do you use any of these nicotine containing products: None Second hand tobacco smoke exposure: No How often do you have a drink containing alcohol: 4 or more times a week Alcohol type: wine How many standard drinks containing alcohol do you have on a typical day: 1 or 2 AUDIT-C Alcohol total score: 4 Non-prescribed substance use: denies use Caffeine: Yes How often does anyone, including family, friends and others, physically hurt you : never How often does anyone, including family, friends and others, insult or talk down to you: never How often does anyone, including family, friends and others, threaten you with harm: never How often does anyone, including family, friends and others, scream or curse at you: never service: No Exam Const: Vital Signs, click to edit/add: Vital Signs - 24 hr 12/18/24 13:19 12/18/24 13:39 12/18/24 13:45 Temperature 97.8 F Pulse Rate 73 Pulse Rate [Pulse Oximeter] 79 Respiratory Rate 20 22 Blood Pressure Blood Pressure [Ri ght Upper Arm] 161/72 H Pulse Oximetry 100 99 100 Oxygen Delivery Me thod Room Air 12/18/24 13:48 12/18/24 14:00 12/18/24 14:02 Temperature Pulse Rate 77 75 70 Pulse Rate [Pulse Oximeter] Respiratory Rate 31 H Blood Pressure 116/97 H 119/102 H Blood Pressure [Ri ght Upper Arm] Pulse Oximetry 99 100 100 Oxygen Delivery Me thod 12/18/24 14:34 12/18/24 14:36 12/18/24 15:05 Temperature Pulse Rate 78 76 82 Pulse Rate [Pulse Oximeter] Respiratory Rate 18 17 Blood Pressure 146/78 H 144/99 H Blood Pressure [Ri ght Upper Arm] Pulse Oximetry 100 99 98 Oxygen Delivery Me thod 12/18/24 15:30 12/18/24 15:46 Temperature Pulse Rate 72 76 Pulse Rate [Pulse Oximeter] Respiratory Rate 22 Blood Pressure 140/81 H Blood Pressure [Ri ght Upper Arm] Pulse Oximetry 96 97 Oxygen Delivery Me thod This 79-year-old male is alert, interactive, no apparent distress intermixed with periods where he grimaces in pain. He at times definitely seems uncomfortable. Sclera clear, symmetrical facial function. Lungs are clear, good air entry, no wheezing or crackles, no tachypnea, no accessory muscle use. CV regular rate and rhythm, no murmur, normal S1-S2. Abdomen has normal bowel sounds, is not distended. Really does not have significant right upper quadrant tenderness on palpation although he states it hurts. He complains of more pain in the central abdomen lower abdomen, more generalized abdominal pain. He has no lower extremity edema, skin visualized without any rash. Patient was ambulatory into the ED of his own accord. Documenting provider has reviewed patient's vital signs: yes Course Course ED Course: Reviewed with patient and his that certainly he does have gallstones, it is possible they could be symptomatic. Given his presentation with generalized abdominal pain, do think we need to think of other etiologies as well. It is possible he could have prodromal neuro virus as this is in the community right now. He does note worsening belching this morning, this certainly could be from other etiologies or worsening biliary issues like cholecystitis. We will be doing CT imaging to help us elucidate any other pathology outside of gallbladder. Consider pancreatitis as well. Will also do full complement of labs. Will have him on pulse oximetry as I am going to give him some initial fentanyl and Zofran to see if this helps with his symptoms. Reevaluation(s) Time of Reevaluation #1: 16:06 Reevaluation #1: Have reviewed with patient his CT is not indicative of any cholecystitis, his labs are normal. He feels completely better. While he was here, had a formed bowel movement, no diarrhea. He has felt better since then. I have reviewed with him that I spoke with our general surgeon, she is recommending that he have an EGD before any consideration of gallbladder removal. Will plan on discharge to home at this time for further outpatient management. Consultations Consultation #1: Spoke with general surgeon Dr. Schroeder and reviewed this case. She agrees that this really does not sound like any episode of biliary colic. She would advise having an EGD for the belching before any consideration of any treatment of asymptomatic cholelithiasis. I will review this with the patient. Time: 15:52 Vital Signs Vital signs: Initial Vital Signs Temperature 97.8 F 12/18/24 13:19 Temperature Source Temporal Artery Scan 12/18/24 13:19 Pulse Rate 79 12/18/24 13:19 Respiratory Rate 20 12/18/24 13:19 Blood Pressure 161/72 H 12/18/24 13:19 Blood Pressure Mean 101 12/18/24 13:19 Blood Pressure Position Supine 12/18/24 13:19 Pulse Oximetry 100 12/18/24 13:19 Oxygen Delivery Method Room Air 12/18/24 13:19 Vital Signs Temperature 97.8 F 12/18/24 13:19 Pulse Rate 79 12/18/24 13:19 Respiratory Rate 20 12/18/24 13:19 Blood Pressure 161/72 H 12/18/24 13:19 Pulse Oximetry 100 12/18/24 13:19 Oxygen Delivery Method Room Air 12/18/24 13:19 Temperature 97.8 F 12/18/24 13:19 Pulse Rate 76 12/18/24 15:46 Respiratory Rate 22 12/18/24 15:30 Blood Pressure 140/81 H 12/18/24 15:46 Pulse Oximetry 97 12/18/24 15:46 Oxygen Delivery Method Room Air 12/18/24 13:19 Medications Administered Medications: Discontinued Medications Generic Name Dose Route Start Last Admin Trade Name Freq PRN Reason Stop Dose Admin Fentanyl 50 mcg 12/18/24 13:39 12/18/24 13:51 Fentanyl 100 Mcg/2 Ml Inj IVP 12/18/24 13:40 50 mcg ONCE ONE Administration Fentanyl 50 mcg 12/18/24 14:24 12/18/24 14:29 Fentanyl 100 Mcg/2 Ml Inj IVP 12/18/24 14:25 50 mcg ONCE ONE Administration Ondansetron HCl 4 mg 12/18/24 13:39 12/18/24 13:51 Ondansetron 2 Mg/Ml Inj IVP 12/18/24 13:40 4 mg ONCE ONE Administration MDM - Abdominal Pain Lab Data Attestation: I reviewed the patient's lab results. Labs: Lab Results 12/18/24 12/18/24 Range/Units 13:41 13:50 WBC 7.21 (4.50-11.00) K/uL RBC 4.66 (4.30-5.90) m/uL Hgb 14.0 (13.5-17.5) gm/dL Hct 42.1 (37.0-53.0) % MCV 90 (80-100) fL MCH 30 (26-34) pg MCHC 33 (32-36) gm/dL RDW Coeff of [place] 12.9 (11.5-15.5) % Plt Count 246 (140-440) K/uL Neut % (Auto) 62.0 (42.0-72.0) % Lymph % (Auto) 28.3 (20-44) % [place] % (Auto) 8.5 (0.0-11.0) % Eos % (Auto) 0.8 (0.0-7.0) % Baso % (Auto) 0.3 (0.0-3.0) % Neut # (Auto) 4.47 (1.7-7.0) K/uL Lymph # (Auto) 2.04 (0.90-2.90) K/uL [place] # (Auto) 0.60 (0.00-0.90) K/UL Eos # (Auto) 0.06 (0.00-0.50) K/uL Baso # (Auto) 0.02 (0.00-0.30) K/uL Abs Immat Gran (auto) 0.01 (0.00-0.30) K/uL Imm/Tot Granulo (auto) 0.1 % Sodium 136 (135-149) mmol/L Potassium 3.9 (3.6-5.1) mmol/L Chloride 104 (96-114) mmol/L Carbon Dioxide 26 (20-32) mmol/L Anion Gap 6 L (7-15) mEq/L BUN 18 (7-30) mg/dL Creatinine 0.5 (0.5-1.5) mg/dL Estimated Creat Clear 62.75 Estimated GFR 103 ml/min Glucose 92 (60-115) mg/dL Lactate 1.7 (0.5-1.9) mmol/L Calcium 9.0 (8.4-10.6) mg/dL Total Bilirubin 1.1 (0.1-1.5) mg/dL Direct Bilirubin 0.3 (0.0-0.5) mg/dL AST 19 (12-35) U/L ALT 14 (4-50) U/L Alkaline Phosphatase 60 (40-150) U/L C-Reactive Protein < 0.5 L (0.5-1.0) mg/dL Total Protein 7.3 (6.0-8.3) g/dL Albumin 4.0 (3.3-5.0) g/dL Lipase 39 (23-300) U/L POC Creatinine 0.7 (0.6-1.3) mg/dl Imaging Data CT scan - abdomen: Attestation: I have reviewed the pertinent imaging results. Radiologist's impression: Patient: SHOBHA BEARD Facility:?[facility] Patient ID:?[id number] Site Patient ID:?[id number]. Site :?[id number] Study:?CT-Abdomen/Pelvis 84CC ISOVUE 370-12/18/2024 3:21:13 PM Ordering Physician:?Olivia Townsend Final Report: INDICATION: Generalized abdominal pain. TECHNIQUE: CT abdomen and pelvis acquired with 84 cc Omnipaque 350 IV contrast. COMPARISON: 07/24/2023. FINDINGS: Visualized lung bases are clear. Undulating surface appearance of the liver could reflect chronic underlying disease. Hypoattenuating lesions within the left lateral section likely represent cysts. The gallbladder is partially distended cholelithiasis. Haziness is likely due to motion. No definite evidence of acute cholecystitis. No biliary ductal dilatation. Calcified granulomas within the spleen. The pancreas is without stranding or main ductal dilatation. The adrenal glands are unremarkable. The kidneys are without hydronephrosis or significant perinephric stranding. The urinary bladder is distended without substantial thickening or stranding. Indeterminate thickening of the inferior rectum. There is an indeterminate focal thickening of the transverse colon as well (63). No significant inflammatory fat stranding. The partially obscured appendix appears to be nondilated. The small bowel is nondilated without evidence of a small-bowel obstruction. The stomach is partially distended. There is thickening of distal esophagus with small hiatal hernia. This is similar compared to the prior examination. No free air. No ascites. No organized drainable fluid collection. Prominent prostate. Prominent periportal lymph nodes are likely reactive. There is otherwise no lymphadenopathy. Prior lower abdominal hernia repair Portal vein is patent. Aorta is nonaneurysmal. Bone windows demonstrate no suspicious lytic or sclerotic lesion. Chronic L3 compression fracture. IMPRESSION: 1. Indeterminate multifocal areas of colonic wall thickening. No significant inflammatory fat stranding to suggest colitis. A follow up colonoscopy may be performed for evaluation. 2. Cholelithiasis with no gross evidence of acute cholecystitis. To consider follow-up right upper quadrant ultrasound for further evaluation. Please note that all CT scans at this facility use dose modulation, iterative reconstruction, and/or weight-based dosing when appropriate to reduce radiation dose to as low as reasonably achievable. Dictated by Luke Pearce MD @ 12/18/2024 3:43:42 PM (Electronic Signature) ECG Data Attestation: I personally reviewed and interpreted this ECG as follows: (Normal sinus rhythm, 76 beats per minute. No ischemia, no infarct.) ECG interpretation date: 12/18/24 ECG interpretation time: 13:33 Prior ECG tracings: available for review (No concerning change.) Discharge Plan Discharge Clinical Impression: Abdominal pain Qualifiers: Abdominal location: generalized Qualified Code(s): R10.84 - Generalized abdominal pain Cholelithiasis Qualifiers: Cholelithiasis location: gallbladder Cholecystitis presence: without cholecystitis Biliary obstruction: without biliary obstruction Qualified Code(s): K80.20 - Calculus of gallbladder without cholecystitis without obstruct ion Patient Disposition: Home, Self-Care Condition: Stable Instructions: Gallstones (ED) Additional Instructions: Continue with plan to have consultation with General surgery as arranged by Dr. Ross. You need to contact him in clinic and let him know that you were seen in the ER, the general surgeon did recommend consideration an EGD which is a scope. He can schedule this if he deems appropriate. Review handout. In the meantime, if you have recurrence abdominal symptoms, developed acute vomiting or fever with abdominal pain, need to return to the ER for further evaluation. Activity Level: Activity as Tolerated Prescriptions: No Action multivitamin [Multiple Vitamins] Tablet 1 tab PO QAM bisacodyl [Dulcolax (bisacodyl)] 5 mg tablet,delayed release (DR/EC) 5 mg PO ONCE PRN hydrocortisone acetate [Anusol-HC] 25 mg suppository 25 mg WA QDAY Qty: 12 0RF lidocaine HCl 2 % solution 1 applic mucous membrane BID PRN (Reason: pain) Qty: 600 3RF omeprazole 20 mg tablet,delayed release (DR/EC) 20 mg PO QDAY PreserVision AREDS 2,148 mcg-113 mg-45 mg-17.4mg tablet 2 tab PO BID Rx Instructions: administer with AM and PM meals simethicone 80 mg tablet,chewable 80 mg PO TID-QID PRN (Reason: abdominal distention) Qty: 60 3RF hydrocortisone [Anusol-HC] 2.5 % cream with perineal applicator 1 applic WA BID-QID PRN (Reason: hemorrhoids) Qty: 30 1RF Follow Up/Referrals: Jono Ross MD [Primary Care Provider, Internal Medicine] Stand Alone Forms: [facility] Info Instructions
--- NOTE | 2024-12-18 13:39 | CRLHL7_ITS ---
For Patients: As a result of the Century Cures Act, medical imaging exams and procedure reports are released immediately into your electronic medical record. You may view this report before your referring provider. If you have questions, please contact your health care provider. INDICATION: Generalized abdominal pain. TECHNIQUE: CT abdomen and pelvis acquired with 84 cc Omnipaque 350 IV contrast. COMPARISON: 07/24/2023. FINDINGS: Visualized lung bases are clear. Undulating surface appearance of the liver could reflect chronic underlying disease. Hypoattenuating lesions within the left lateral section likely represent cysts. The gallbladder is partially distended cholelithiasis. Haziness is likely due to motion. No definite evidence of acute cholecystitis. No biliary ductal dilatation. Calcified granulomas within the spleen. The pancreas is without stranding or main ductal dilatation. The adrenal glands are unremarkable. The kidneys are without hydronephrosis or significant perinephric stranding. The urinary bladder is distended without substantial thickening or stranding. Indeterminate thickening of the inferior rectum. There is an indeterminate focal thickening of the transverse colon as well (63). No significant inflammatory fat stranding. The partially obscured appendix appears to be nondilated. The small bowel is nondilated without evidence of a small-bowel obstruction. The stomach is partially distended. There is thickening of distal esophagus with small hiatal hernia. This is similar compared to the prior examination. No free air. No ascites. No organized drainable fluid collection. Prominent prostate. Prominent periportal lymph nodes are likely reactive. There is otherwise no lymphadenopathy. Prior lower abdominal hernia repair Portal vein is patent. Aorta is nonaneurysmal. Bone windows demonstrate no suspicious lytic or sclerotic lesion. Chronic L3 compression fracture. IMPRESSION: 1. Indeterminate multifocal areas of colonic wall thickening. No significant inflammatory fat stranding to suggest colitis. A follow up colonoscopy may be performed for evaluation. 2. Cholelithiasis with no gross evidence of acute cholecystitis. To consider follow-up right upper quadrant ultrasound for further evaluation. Please note that all CT scans at this facility use dose modulation, iterative reconstruction, and/or weight-based dosing when appropriate to reduce radiation dose to as low as reasonably achievable. Dictated by Luke Pearce MD @ 12/18/2024 3:43:42 PM (Electronically Signed)
[2024-12-18] MEDS: ONDANSETRON 2 MG/ML inj 4 MG IVP (13:51)
[2024-12-18 14:00] LABS: Lactate* 1.7 mmol/L (0.5-1.9)
[2024-12-18 14:02] LABS: Hematocrit* 42.1 % (37.0-53.0); Hemoglobin* 14.0 gm/dL (13.5-17.5); Immature Granulocytes Abs Auto 0.01 K/uL (0.00-0.30); Immature Granulocytes Pct Auto 0.1 %; Lymphocytes Absolute Auto 2.04 K/uL (0.90-2.90); Mean Corpuscular HGB Conc 33 gm/dL (32-36); Mean Corpuscular Hemoglobin 30 pg (26-34); Mean Corpuscular Volume 90 fL (80-100); RDW Coefficient of Variation % 12.9 % (11.5-15.5); Red Blood Count* 4.66 m/uL (4.30-5.90); White Blood Count* 7.21 K/uL (4.50-11.00)
[2024-12-18 14:11] LABS: Creatinine, Point-of-Care* 0.7 mg/dl (0.6-1.3)
[2024-12-18 14:18] LABS: Chloride* 104 mmol/L (96-114)
[2024-12-18 14:19] LABS: Potassium* 3.9 mmol/L (3.6-5.1); Sodium* 136 mmol/L (135-149)
[2024-12-18 14:21] LABS: Alanine Aminotransferase* 14 U/L (4-50); Aspartate Amino Transferase* 19 U/L (12-35); Blood Urea Nitrogen* 18 mg/dL (7-30); Creatinine* 0.5 mg/dL (0.5-1.5); Est. Creatinine Clearance* 62.75; Estimated Glomerular Filt Rate 103 ml/min
[2024-12-18 14:22] LABS: Alkaline Phosphatase* 60 U/L (40-150); Anion Gap 6 mEq/L (7-15); Bilirubin Direct* 0.3 mg/dL (0.0-0.5); Bilirubin Total* 1.1 mg/dL (0.1-1.5); Calcium* 9.0 mg/dL (8.4-10.6); Carbon Dioxide* 26 mmol/L (20-32); Glucose* 92 mg/dL (60-115); Total Protein* 7.3 g/dL (6.0-8.3)
[2024-12-18 14:33] LABS: Slide Review Reflex No
[2024-12-18 14:46] LABS: Albumin* 4.0 g/dL (3.3-5.0)
== END 2024-12-18 16:23 | disposition home or self-care (01) ==
PROVIDERS: Emergency Provider Family Medicine; PCP Internal Medicine
DX: R10.84 Generalized abdominal pain (principal); K80.20 Calculus of gallbladder without cholecystitis without obstruction
CPT/HCPCS: 36415; 74177; 80053; 82248; 82565; 83605; 83690; 85025; 86140; 93005; 94761; 96374; 96375; 96376; 99284; 99285; J2405; J3010; Q9967

== ENCOUNTER 2024-12-26 14:17 | Outpatient (CLI) | payer MEDICARE, BC, SELFPAY | END 2024-12-26 14:18 | disposition home or self-care (01) | LOC: NFLDREF 01-02 06:21 | PROVIDERS: PCP Internal Medicine; Referring Provider Internal Medicine; Visit Provider Surgery | DX: R10.30 Lower abdominal pain, unspecified (principal) | CPT/HCPCS: 87086 ==

== ENCOUNTER 2025-01-08 11:58 | Outpatient (CLI) | payer MEDICARE, BC, SELFPAY | END 2025-01-08 11:59 | disposition home or self-care (01) | LOC: OP CLINIC 11:59 | PROVIDERS: PCP Internal Medicine; Visit Provider Surgery | DX: Z53.9 Procedure and treatment not carried out, unspecified reason (principal); R14.2 Eructation ==

== ENCOUNTER 2025-01-09 10:27 | Outpatient (CLI) | payer MEDICARE, BC, SELFPAY ==
--- NOTE | 2025-01-09 12:09 | P.ANES_ITS ---
Anesthesia Charges Start Date/Time Anesthesia Start Date: 01/09/25 Anesthesia Start Time: 11:52 Stop Date/Time Anesthesia Stop Date: 01/09/25 Anesthesia Stop Time: 12:03 Coding CPT Codes CPT Codes: ANES UPR GI NDSC PX NOS - 77020 ([id number]) P2 - PATIENT W/MILD SYST DISEASE, QK - TERRAZZO WORKER HELPER 2-4 CNCRNT ANES PROC, QX - BANDSAW OPERATOR SVC W/ MD MED DIRECTION
--- NOTE | 2025-01-09 12:09 | W.ANESCHARGE ---
Anesthesia Charges Start Date/Time Anesthesia Start Date: 01/09/25 Anesthesia Start Time: 11:52 Stop Date/Time Anesthesia Stop Date: 01/09/25 Anesthesia Stop Time: 12:03 Coding CPT Codes CPT Codes: ANES UPR GI NDSC PX NOS - 24553 ([id number]) P2 - PATIENT W/MILD SYST DISEASE, QK - PLANT SECURITY GUARD 2-4 CNCRNT ANES PROC, QX - MANAGER REGIONAL SVC W/ MD MED DIRECTION
--- NOTE | 2025-01-09 12:20 | P.ANES_ITS ---
Anesthesia Charges Start Date/Time Anesthesia Start Date: 01/09/25 Anesthesia Start Time: 11:52 Stop Date/Time Anesthesia Stop Date: 01/09/25 Anesthesia Stop Time: 12:03 Summary Extremes of Age - Over 70 or under 1: MDA Coding CPT Codes CPT Codes: ANES UPR GI NDSC PX NOS - 28245 ([id number]) P2 - PATIENT W/MILD SYST DISEASE, QK - SIGNALS COLLECTION TECHNICIAN 2-4 CNCRNT ANES PROC, QX - SUPERVISOR PARTIAL DENTURE DEPARTMENT SVC W/ MD MED DIRECTION Additional Codes: Summary - Extremes of Age - Over 70 or under 1: MDA ([id number])
--- NOTE | 2025-01-09 12:20 | W.ANESCHARGE ---
Anesthesia Charges Start Date/Time Anesthesia Start Date: 01/09/25 Anesthesia Start Time: 11:52 Stop Date/Time Anesthesia Stop Date: 01/09/25 Anesthesia Stop Time: 12:03 Summary Extremes of Age - Over 70 or under 1: MDA Coding CPT Codes CPT Codes: ANES UPR GI NDSC PX NOS - 34313 ([id number]) P2 - PATIENT W/MILD SYST DISEASE, QK - DUCO POLISHER 2-4 CNCRNT ANES PROC, QX - HAND SEWER SVC W/ MD MED DIRECTION Additional Codes: Summary - Extremes of Age - Over 70 or under 1: MDA ([id number])
== END 2025-01-09 10:28 | disposition home or self-care (01) ==
PROVIDERS: PCP Internal Medicine; Visit Provider Internal Medicine
DX: R10.13 Epigastric pain (principal); K44.9 Diaphragmatic hernia without obstruction or gangrene
CPT/HCPCS: 00731; 43239; 99100; J2704; J3490